=== PATIENT | female | born 1955 | race Caucasian/White ===

== ENCOUNTER 2016-07-21 10:25 | Outpatient (CLI) ==
[2015-11-13 22:31] VITALS: BMI 34.2
[2016-07-21 14:01] LABS: ALBUMIN 3.8 g/dL (3.4-5.0); ALBUMIN/GLOBULIN RATIO 1.09; ANION GAP 15.6; BILIRUBIN,TOTAL 1.05 mg/dL (0.00-1.20); BUN/CREATININE RATIO 16.02; CALCIUM 9.3 mg/dL (8.2-10.2); CREATININE 1.56 mg/dL (0.60-1.30); POTASSIUM 4.6 mmol/L (3.5-5.10); TOTAL PROTEIN 7.3 g/dL (5.8-8.1)
== END 2016-07-21 10:26 | disposition home or self-care (01) ==
LOC: LAB 10:25
PROVIDERS: ATTEND General Practice
DX: E11.9 Type 2 diabetes mellitus without complications (principal); E78.1 Pure hyperglyceridemia; E78.5 Hyperlipidemia, unspecified
CPT/HCPCS: 36415; 80053; 80061; 83036

== ENCOUNTER 2016-08-02 17:47 | Outpatient (CLI) ==
[2015-11-13 22:31] VITALS: BMI 34.2
== END 2016-08-02 17:48 | disposition home or self-care (01) ==
LOC: LAB 17:47
PROVIDERS: ATTEND Nurse Practitioner Family
DX: E03.9 Hypothyroidism, unspecified (principal)
CPT/HCPCS: 36415; 84439; 84443

== ENCOUNTER 2016-09-01 11:49 | Outpatient (CLI) ==
[2015-11-13 22:31] VITALS: BMI 34.2
[2016-09-01 13:20] LABS: ALBUMIN 4.1 g/dL (3.4-5.0); ALBUMIN/GLOBULIN RATIO 1.21; ANION GAP 16.7; BILIRUBIN,TOTAL 1.28 mg/dL (0.00-1.20); BUN/CREATININE RATIO 14.75; CALCIUM 9.4 mg/dL (8.2-10.2); CREATININE 1.83 mg/dL (0.60-1.30); POTASSIUM 4.7 mmol/L (3.5-5.10); TOTAL PROTEIN 7.5 g/dL (5.8-8.1)
== END 2016-09-01 11:50 | disposition home or self-care (01) ==
LOC: LAB 11:49
PROVIDERS: ATTEND Nurse Practitioner Family
DX: N18.3 Chronic kidney disease, stage 3 (moderate) (principal); R94.4 Abnormal results of kidney function studies
CPT/HCPCS: 36415; 80053

== ENCOUNTER 2016-09-30 11:01 | Outpatient (CLI) ==
[2015-11-13 22:31] VITALS: BMI 34.2
[2016-09-30 12:56] LABS: BASOPHILS # (AUTO) 0.1 K/uL (0-0.2); BASOPHILS % (AUTO) 0.7 % (0.0-3.0); EOSINOPHILS # (AUTO) 0.5 K/ul (0.0-0.7); EOSINOPHILS % (AUTO) 5.2 % (0.0-7.0); HEMATOCRIT 40.9 % (37.0-47.0); HEMOGLOBIN 13.9 g/dl (12.0-16.0); IMMATURE GRANULOCYTE % (AUTO) 0.8 % (0.0-5.0); MEAN CORPUSCULAR HEMOGLOBIN 31.1 pg (27.0-31.0); MEAN CORPUSCULAR VOLUME 91.5 fl (81.0-99.0); MONOCYTES # (AUTO) 0.6 K/uL (0.4-2.0); MONOCYTES % (AUTO) 5.9 (0-10); NEUTROPHILS # (AUTO) 5.4 K/ul (2.0-6.9); NEUTROPHILS % (AUTO) 56.4; PLATELET COUNT 293 10^3/uL (140-440); RED BLOOD COUNT 4.47 10^6/ul (4.20-5.40); WHITE BLOOD COUNT 9.53 K/ul (4.6-10.2)
[2016-09-30 13:26] LABS: ALBUMIN 3.9 g/dL (3.4-5.0); ALBUMIN/GLOBULIN RATIO 1.11; ANION GAP 16.1; BILIRUBIN,TOTAL 0.91 mg/dL (0.00-1.20); BUN/CREATININE RATIO 13.37; CALCIUM 9.5 mg/dL (8.2-10.2); CHOL/HDL RATIO 4.1 (4.5-5.5); CREATININE 1.57 mg/dL (0.60-1.30); POTASSIUM 4.1 mmol/L (3.5-5.10); TOTAL PROTEIN 7.4 g/dL (5.8-8.1)
== END 2016-09-30 11:02 | disposition home or self-care (01) ==
LOC: LAB 11:01
PROVIDERS: ATTEND Nurse Practitioner Family
DX: E11.9 Type 2 diabetes mellitus without complications (principal); E03.9 Hypothyroidism, unspecified; I10 Essential (primary) hypertension
CPT/HCPCS: 36415; 80053; 80061; 83036; 84443; 85025

== ENCOUNTER 2016-11-02 11:45 | Outpatient (CLI) ==
[2015-11-13 22:31] VITALS: BMI 34.2
[2016-11-02 13:50] LABS: ALBUMIN 3.8 g/dL (3.4-5.0); ALBUMIN/GLOBULIN RATIO 1.09; ANION GAP 14.5; BILIRUBIN,TOTAL 1.2 mg/dL (0.00-1.20); BUN/CREATININE RATIO 13.54; CALCIUM 9.3 mg/dL (8.2-10.2); CREATININE 1.55 mg/dL (0.60-1.30); POTASSIUM 4.5 mmol/L (3.5-5.10); TOTAL PROTEIN 7.3 g/dL (5.8-8.1)
== END 2016-11-02 11:46 | disposition home or self-care (01) ==
LOC: LAB 11:45
PROVIDERS: ATTEND Nurse Practitioner Family
DX: E03.9 Hypothyroidism, unspecified (principal); I10 Essential (primary) hypertension
CPT/HCPCS: 36415; 80053; 84439; 84443

== ENCOUNTER 2016-12-14 11:36 | Outpatient (CLI) ==
[2015-11-13 22:31] VITALS: BMI 34.2
== END 2016-12-14 11:37 | disposition home or self-care (01) ==
LOC: LAB 11:36
PROVIDERS: ATTEND Nurse Practitioner Family
DX: E03.9 Hypothyroidism, unspecified (principal)
CPT/HCPCS: 36415; 84443

== ENCOUNTER 2017-03-13 12:46 | Outpatient (CLI) ==
[2015-11-13 22:31] VITALS: BMI 34.2
[2017-03-13 13:37] LABS: ALBUMIN 3.4 g/dL (3.4-5.0); ALBUMIN/GLOBULIN RATIO 0.89; ANION GAP 13.4; BILIRUBIN,TOTAL 1.18 mg/dL (0.00-1.20); BUN/CREATININE RATIO 13.46; CALCIUM 9.7 mg/dL (8.2-10.2); CHOL/HDL RATIO 5.3 (4.5-5.5); CREATININE 1.56 mg/dL (0.60-1.30); POTASSIUM 4.4 mmol/L (3.5-5.10); TOTAL PROTEIN 7.2 g/dL (5.8-8.1)
== END 2017-03-13 12:47 | disposition home or self-care (01) ==
LOC: LAB 12:46
PROVIDERS: ATTEND Nurse Practitioner Family
DX: E11.9 Type 2 diabetes mellitus without complications (principal); I10 Essential (primary) hypertension; E78.5 Hyperlipidemia, unspecified; E78.1 Pure hyperglyceridemia; E55.9 Vitamin D deficiency, unspecified
CPT/HCPCS: 36415; 80053; 80061; 82306; 83036

== ENCOUNTER 2017-03-17 13:59 | Outpatient (CLI) ==
[2015-11-13 22:31] VITALS: BMI 34.2
--- NOTE | 2017-03-17 14:36 | DI ---
EXAM: Three views of the right ankle HISTORY: Pain in the right foot. COMPARISON: Right ankle x-ray 09/23/2012 FINDINGS: There is soft tissue swelling most pronounced laterally. There is no cortical irregularity or displaced fracture. The joint spaces maintained. There is no lytic or blastic lesion. There is a calcaneal spur present. IMPRESSION: Soft tissue swelling most pronounced laterally with no underlying fracture or dislocatio n of the right ankle.
--- NOTE | 2017-03-17 14:37 | DI ---
Exam: Three x-rays of the right foot. Comparison: 09/23/2012. Reason for exam: Pain in right foot. FINDINGS: No acute fracture or malalignment. The joint spaces are well maintained. No unexplained calcific soft tissue densities or radiopaque retained foreign bodies. Degenerative disease is seen w ith calcaneal osteophyte formation and diffuse osseous demineralization. Impression: No acute fracture or dislocation in the right foot with mild degenerative disease.
== END 2017-03-17 14:00 | disposition home or self-care (01) ==
LOC: RAD 13:59
PROVIDERS: ATTEND Nurse Practitioner Family
DX: M79.671 Pain in right foot (principal)

== ENCOUNTER 2017-04-04 12:43 | Outpatient (CLI) ==
[2015-11-13 22:31] VITALS: BMI 34.2
--- NOTE | 2017-04-04 14:57 | DEXA ---
EXAM: Bone densitometry. History: Postmenopausal. Findings: Evaluation of the lumbar spine reveals a total bone mineral density of 1.146 grams per centimeter squ ared with T-score of negative 0.3. Evaluation of the left hip reveals a total bone mineral density of 0.956 grams per centimeter squared with T-score of negative 0.4. Evaluation of the right hip reveals a total bone mineral density of 0.938 grams per centimeter square d with T-score of negative 0.5 Impression: Normal bone mineral density of the lumbar spine and bilateral hips
--- NOTE | 2017-04-05 10:15 | MAMMO ---
EXAM: Bilateral digital screening mammogram (2-D and 3-D) History: Screening Comparison: Bilateral mammogram 02/25/2016 Findings: MLO and CC views of bilateral breasts demonstrate predominately fatty replaced breast pare nchyma. CAD was reviewed by the radiologist. Tomosynthesis was performed. Stable benign bilateral breast calcifications. There are no dominant masses, no suspicious calcifications and no architectur al distortions Impression: Benign stable mammogram. Recommend followup routine screening mammography in 1 year. BIRADS 2
== END 2017-04-04 12:44 | disposition home or self-care (01) ==
LOC: RAD 12:43
PROVIDERS: ATTEND Nurse Practitioner Family
DX: Z12.31 Encounter for screening mammogram for malignant neoplasm of breast (principal); M89.9 Disorder of bone, unspecified; Z78.0 Asymptomatic menopausal state
CPT/HCPCS: 77067

== ENCOUNTER 2017-04-18 11:20 | Emergency (ER) ==
[2017-04-18 11:27] VITALS: BP 136/82; TEMP 100.1; BMI 34.0
--- NOTE | 2017-04-18 11:32 | ED.PDOC ---
General ED Provider: Dr. ALDO VALLES JR Chief Complaint: Foot Pain/Injury Stated Complaint: pain both feet 2 days states gout, flare ups at intervals, unable to walk due to pain End]100.1 84 20 97% 136/82 910 Time Seen by Physician: 11:31 Mode of Arrival: Wheelchair Information Source: Patient Exam Limitations: No limitations Primary Care Provider: LIA ZAMBRANO Nursing and Triage Documentation Reviewed and Agree: No Reviewed sepsis parameters & appropriate labs ordered?: No System Inflammatory Response Syndrome: Not Applicable Sepsis Protocol: For patient's 13 years and over: Temp is 96.8 and below OR 101 and greater Pulse >90 BPM Resp >20/minute Acutely Altered Mental Status Are patient's symptoms suggestive of a new infection, such as: -Pneumonia -Skin, Soft Tissue -Endocarditis -UTI -Bone, Joint Infection -Implantable Device -Acute Abdominal Infection -Wound Infection -Meningitis -Blood Stream Catheter Infection -Unknown System Inflammatory Response Syndrome: Not Applicable Review of Systems - Review Of Systems Constitutional: Reports: Weakness Eyes: Reports: No symptoms Ears, Nose, Mouth, Throat: Reports: No symptoms Respiratory: Reports: No symptoms Cardiac: Reports: No symptoms GI: Reports: No symptoms : Reports: No symptoms Musculoskeletal: Reports: Gout, Joint pain, Other Skin: Reports: Change in color Neurological: Reports: No symptoms Endocrine: Reports: Other All Other Systems: Other Past Medical History - Past Medical History Endocrine: Reports: DM 2, Hypothyroid Cardiovascular: Reports: CAD, MS, Hypertension Respiratory: Reports: None Hematological: Reports: None Gastrointestinal: Reports: GERD Genitourinary: Reports: CKD Neuro/Psych: Reports: None, Migraine, Depression Musculoskeletal: Reports: None, Arthritis Cancer: Reports: Other (lymph nodes removed due to CA) Last Menstrual Period: hysterectomy - Surgical History General Surgical History: Reports: Hysterectomy (hysterectomy 1980 ), C- section ( c-sections 1973, 1978), Cholecystectomy (gallbladder 1978), Orthopedic (titanium plate/screws in neck 2002), Back Surgery - Family History Family History: Reports: Unknown - Social History Smoking Status: Current every day smoker, Light tobacco smoker Hx Substance Use: No Alcohol Screening: None Physical Exam - Physical Exam Appearance: Well-appearing Pain Distress: Moderate Neck: Supple Respiratory: Airway patent Musculoskeletal: No calf tenderness (TENDER FEET ANKLES TO ABOVE ANKLES) Skin: Warm, Dry, Normal color Neurological: Sensation intact (states bilateral footnumbness due to diabetes), Motor intact, Reflexes intact, Cranial nerves intact, Alert, Oriented Psychiatric: Affect appropriate, Mood appropriate Critical Care Note - Critical Care Note Total Time (mins): 5 Course - Course Hematology/Chemistry: 04/18/17 11:45 04/18/17 11:45 Orders, Labs, Meds: Lab Review 04/18/17 04/18/17 04/18/17 11:45 11:45 11:45 WBC 17.70 H RBC 4.39 Hgb 13.7 Hct 39.7 MCV 90.4 MCH 31.2 H MCHC 34.5 RDW Coeff of Frandy 13.3 Plt Count 426 Neutrophils % (Manual) 77.0 H Lymphocytes % (Manual) 16.0 Monocytes % (Manual) 2.0 Eosinophils % (Manual) 2.0 Reactive Lymphocytes 3.0 Anisocytosis Not present Sodium 137 Potassium 3.8 Chloride 94 L Carbon Dioxide 30 Anion Gap 16.8 BUN 24 H Creatinine 1.62 H Estimated GFR (MDRD) 32.00 BUN/Creatinine Ratio 14.81 Glucose 199 H Uric Acid 8.3 H Calcium 9.5 Total Bilirubin 2.4 H AST 15 ALT 23 Alkaline Phosphatase 111 Total Protein 7.8 Albumin 3.3 L Globulin 4.5 Albumin/Globulin Ratio 0.73 Orders Category Date Time Status CBC W/ AUTO DIFF Stat LAB 04/18/17 11:45 Completed COMPREHENSIVE METABOLIC PANEL Stat LAB 04/18/17 11:45 Completed MANUAL DIFFERENTIAL Stat LAB 04/18/17 11:45 Completed URIC ACID Stat LAB 04/18/17 11:45 Completed Hydrocodone Bit/Acetaminophen [Perley 5-325] MEDS 04/18/17 11:34 Discontinued 1 tab PO ONCE STA FOOT, LEFT 3 VIEWS Stat RADS 04/18/17 12:47 Completed FOOT, RIGHT 3 VIEWS Stat RADS 04/18/17 12:47 Completed Medications Discontinued Medications Generic Name Dose Route Start Last Admin Trade Name Freq PRN Reason Stop Dose Admin Acetaminophen/Hydrocodone Bitart 1 tab 04/18/17 11:34 04/18/17 12:10 Perley 5-325 PO 04/18/17 11:35 1 tab ONCE STA Administration Vital Signs: Temp Pulse Resp BP Pulse Ox 04/18/17 11:21 100.1 F H 84 20 136/82 97 Departure - Departure Time of Disposition: 13:06 Disposition: HOME SELF-CARE Discharge Problem: Injury of foot Gout attack Qualifiers: Gout site: toe Gout etiology: unspecified cause Laterality: left Qualified Code (s): M10.9 - Gout, unspecified Instructions: Ankle Sprain (ED), Low Purine Diet (ED), Gout (ED), Self-Care Measures with a Chronic Disease (ED), Swollen Joint (ED) Condition: Fair Pt referred to PMD for follow-up: Yes Additional Instructions: Indocin or ibuprofen for pain(do not take together) may use Allergies/Adverse Reactions: Allergies nifedipine [From Procardia] Adverse Reaction (Verified 04/18/17 11:29) Home Medications: Ambulatory Orders Aspirin [Aspirin EC] 81 mg PO DAILY 04/18/17
[2017-04-18] MEDS ORDERED: NORCO 5-325 PO STA (11:34)
[2017-04-18 12:13] LABS: ALBUMIN 3.3 g/dL (3.4-5.0); ALBUMIN/GLOBULIN RATIO 0.73; ANION GAP 16.8; BILIRUBIN,TOTAL 2.4 mg/dL (0.00-1.20); BUN/CREATININE RATIO 14.81; CALCIUM 9.5 mg/dL (8.2-10.2); CREATININE 1.62 mg/dL (0.60-1.30); POTASSIUM 3.8 mmol/L (3.5-5.10); TOTAL PROTEIN 7.8 g/dL (5.8-8.1)
[2017-04-18 12:22] LABS: HEMATOCRIT 39.7 % (37.0-47.0); HEMOGLOBIN 13.7 g/dl (12.0-16.0); MEAN CORPUSCULAR HEMOGLOBIN 31.2 pg (27.0-31.0); MEAN CORPUSCULAR HGB CONC 34.5 (31.8-35.4); MEAN CORPUSCULAR VOLUME 90.4 fl (81.0-99.0); PLATELET COUNT 426 10^3/uL (140-440); RED BLOOD COUNT 4.39 10^6/ul (4.20-5.40)
[2017-04-18 12:23] LABS: ANISOCYTOSIS NOT PRESENT (NOT PRESENT)
--- NOTE | 2017-04-18 13:10 | DI ---
EXAM: Three views of the left foot. History: Left foot pain. Comparison: Left foot radiograph 06/27/2014 Findings: No acute fracture or dislocation. Mild hallux valgus deformity. Small plantar spur. Dif fuse subcutaneous edema. Mild to moderate narrowing of the first MTP joint with small osteophytes no t significantly changed. No adrienne erosive osseous changes. Impression: No acute osseous abnormality. Other findings as detailed above.
--- NOTE | 2017-04-18 13:11 | DI ---
Exam: Three x-rays of the right foot. Comparison: 03/17/2017. Reason for exam: Acute pain left gout. FINDINGS: No acute fracture or malalignment. The joint spaces are relatively well maintained. Degenerative di sease is seen with calcaneal osteophyte formation and diffuse osseous demineralization. Impression: No acute fracture or malalignment in the right foot.
== END 2017-04-18 13:52 | disposition home or self-care (01) ==
LOC: ED 11:20
DX: M10.9 Gout, unspecified (principal); E11.9 Type 2 diabetes mellitus without complications; R20.0 Anesthesia of skin; F17.210 Nicotine dependence, cigarettes, uncomplicated
CPT/HCPCS: 36415; 80053; 84550; 85007; 85025; 99283

== ENCOUNTER 2017-05-10 13:55 | Outpatient (CLI) ==
--- NOTE | 2017-05-10 16:55 | CT ---
EXAM: CT of the abdomen pelvis with enteric contrast History: Diarrhea and nausea, mid abdominal pain. Comparison: None available. Technique: Multiplanar CT images through the abdomen pelvis were obtained following administration o f enteric contrast Findings: There are coronary calcifications and aortic valve calcifications. Lung bases are clear. No acute osseous abnormalities. Atrophic left kidney. No renal stones and no hydronephrosis. Spleen is unremarkable. Status post c holecystectomy. The liver measures 22 cm in length. Atherosclerotic vascular calcifications. No pe ripancreatic inflammation. There is some atrophy of the pancreas. Adrenal glands are unremarkable. The appendix is not seen. Mild quintana colonic wall thickening with adjacent hyperemia. No bowel obstr uction. No free air. No ascites. Bladder is not well distended but the wall is not thickened. Violeta shorty is not seen. Impression: 1. Mild pancolitis. Etiology is most likely infectious or inflammatory. There is no bowel obstruct ion. 2. Atrophic left kidney. 3. Hepatomegaly. 4. Coronary artery disease
== END 2017-05-10 13:56 | disposition home or self-care (01) ==
LOC: RAD 13:55
PROVIDERS: ATTEND Nurse Practitioner Family
DX: R10.9 Unspecified abdominal pain (principal); R10.814 Left lower quadrant abdominal tenderness; R11.0 Nausea; R19.7 Diarrhea, unspecified; R94.4 Abnormal results of kidney function studies
CPT/HCPCS: 36415; 80053; 82150; 83690; 85025; 86677

== ENCOUNTER 2017-06-08 14:07 | Outpatient (CLI) | END 2017-06-08 14:08 | disposition home or self-care (01) | LOC: LAB 14:07 | PROVIDERS: ATTEND Nurse Practitioner Family | DX: E11.9 Type 2 diabetes mellitus without complications (principal); E03.9 Hypothyroidism, unspecified; E78.1 Pure hyperglyceridemia; E78.5 Hyperlipidemia, unspecified; I10 Essential (primary) hypertension; R19.7 Diarrhea, unspecified; R11.0 Nausea; R10.9 Unspecified abdominal pain; R10.814 Left lower quadrant abdominal tenderness | CPT/HCPCS: 36415; 80053; 80061; 83036; 84443 ==

== ENCOUNTER 2017-07-22 07:12 | Emergency (ER) ==
[2017-07-22 07:21] VITALS: BP 169/90; TEMP 97.4; BMI 33.7
--- NOTE | 2017-07-22 07:45 | ED.PDOC ---
General ED Provider: Dr. LUDWIG BERTRAND Chief Complaint: Nausea/Vomiting Stated Complaint: Nausea and Vomiting Time Seen by Physician: 07:35 Mode of Arrival: Walk-In Information Source: Patient, Family Exam Limitations: No limitations Primary Care Provider: TIFFANIE TRENT Referred to ED by: Other () Nursing and Triage Documentation Reviewed and Agree: Yes Reviewed sepsis parameters & appropriate labs ordered?: Yes System Inflammatory Response Syndrome: Not Applicable Sepsis Protocol: For patient's 13 years and over: Temp is 96.8 and below OR 101 and greater Pulse >90 BPM Resp >20/minute Acutely Altered Mental Status Are patient's symptoms suggestive of a new infection, such as: -Pneumonia -Skin, Soft Tissue -Endocarditis -UTI -Bone, Joint Infection -Implantable Device -Acute Abdominal Infection -Wound Infection -Meningitis -Blood Stream Catheter Infection -Unknown System Inflammatory Response Syndrome: Not Applicable GI Complaint Exam - Vomiting/Diarrhea Complaint/Exam Onset/Duration: Lase PM 1.5 hrs after eatting dinner chicken strips/fried potatoes @ home Symptoms Are: Still present Episodes of Vomiting over last 24 Hours: 8 Initial Severity: Severe Current Severity: Mild Character of Vomiting: Reports: Bilious Aggravating: Reports: Movement Alleviating: Reports: Lying still Associated Signs and Symptoms: Reports: Dizziness, Light-headedness Non-GI Risk Factors: Reports: None Surgical Obstruction Risk Factors: Reports: Bilious emesis, Prior abdominal surgery Related Surgical History: Reports: Cholecystectomy Abdominal Findings: Present: None Kussmaul Respirations Present: No Differential Diagnoses: Viral Gastroenteritis Review of Systems - Review Of Systems Constitutional: Reports: No symptoms Eyes: Reports: No symptoms Ears, Nose, Mouth, Throat: Reports: No symptoms Respiratory: Reports: No symptoms Cardiac: Reports: No symptoms GI: Reports: Nausea, Poor fluid intake, Vomiting : Reports: No symptoms Musculoskeletal: Reports: No symptoms Skin: Reports: No symptoms Neurological: Reports: No symptoms Endocrine: Reports: No symptoms Hematologic/Lymphatic: Reports: No symptoms All Other Systems: Reviewed and Negative Past Medical History - Past Medical History Endocrine: Reports: DM 2, Hypothyroid Cardiovascular: Reports: CAD, HI, Hypertension Respiratory: Reports: None Hematological: Reports: None Gastrointestinal: Reports: GERD Genitourinary: Reports: CKD Neuro/Psych: Reports: None, Migraine, Depression Musculoskeletal: Reports: None, Arthritis Cancer: Reports: Other (lymph nodes removed due to CA) Last Menstrual Period: 1980 - Surgical History General Surgical History: Reports: Hysterectomy (hysterectomy 1980 ), C- section ( c-sections 1973, 1978), Cholecystectomy (gallbladder 1978), Orthopedic (titanium plate/screws in neck 2002), Back Surgery - Family History Family History: Reports: Unknown - Social History Smoking Status: Current every day smoker Hx Substance Use: No Alcohol Screening: None - Immunizations Tetanus Shot up to Date: Yes Physical Exam - Physical Exam Appearance: Ill-appearing, No pain distress, Well-nourished, Obese (Appearing older than stated age) Ill-appearing: Moderate Pain Distress: None Eyes: JUNI, EOMI, Conjunctiva clear ENT: Ears normal, Nose normal, Oropharynx normal Respiratory: Airway patent, Breath sounds clear, Breath sounds equal, Respirations nonlabored Cardiovascular: RRR, Pulses normal, No rub, No murmur GI/: Soft, No masses, Bowel sounds normal, No Organomegaly, Tender Musculoskeletal: Normal strength, ROM intact, No edema, No calf tenderness Skin: Warm, Dry, Normal color Neurological: Sensation intact, Motor intact, Reflexes intact, Cranial nerves intact, Alert, Oriented Psychiatric: Affect appropriate, Mood appropriate Interpretation - EKG Interpretation Time of EKG #1: 08:19 Rate: Normal Rhythm: Sinus Ectopy: None ST Segment: Other (Non specific T wave abnormality; Sl prolonged QT) Critical Care Note - Critical Care Note Total Time (mins): 0 Course - Course Hematology/Chemistry: 07/22/17 07:58 07/22/17 07:55 Orders, Labs, Meds: Lab Review 07/22/17 07/22/17 07/22/17 07:55 07:58 08:15 WBC 11.06 H RBC 4.65 Hgb 14.1 Hct 40.8 MCV 87.7 MCH 30.3 MCHC 34.6 RDW Coeff of Frandy 13.2 Plt Count 292 Immature Gran % (Auto) 0.4 Neut % (Auto) 73.0 Lymph % (Auto) 17.4 Coal % (Auto) 3.8 Eos % (Auto) 4.7 Baso % (Auto) 0.7 Immature Gran # (Auto) 0.0 Neut # (Auto) 8.1 H Lymph # (Auto) 1.9 Coal # (Auto) 0.4 Eos # (Auto) 0.5 Baso # (Auto) 0.1 Sodium 140 Potassium 4.5 Chloride 102 Carbon Dioxide 23 Anion Gap 19.5 BUN 19 H Creatinine 1.29 Estimated GFR (MDRD) 42.00 BUN/Creatinine Ratio 14.72 Glucose 193 H Calcium 9.8 Total Bilirubin 1.2 AST 36 ALT 41 Alkaline Phosphatase 119 Total Protein 7.3 Albumin 3.7 Globulin 3.6 Albumin/Globulin Ratio 1.03 Urine Color Urine Clarity Urine pH Ur Specific [place] Urine Protein Urine Glucose (UA) Urine Ketones Urine Blood Urine Nitrite Urine Bilirubin Urine Urobilinogen Ur Leukocyte Esterase Influ A Molecular Assay Negative by naat Influ B Molecular Assay Negative by naat 07/22/17 09:40 WBC RBC Hgb Hct MCV MCH MCHC RDW Coeff of Frandy Plt Count Immature Gran % (Auto) Neut % (Auto) Lymph % (Auto) Coal % (Auto) Eos % (Auto) Baso % (Auto) Immature Gran # (Auto) Neut # (Auto) Lymph # (Auto) Coal # (Auto) Eos # (Auto) Baso # (Auto) Sodium Potassium Chloride Carbon Dioxide Anion Gap BUN Creatinine Estimated GFR (MDRD) BUN/Creatinine Ratio Glucose Calcium Total Bilirubin AST ALT Alkaline Phosphatase Total Protein Albumin Globulin Albumin/Globulin Ratio Urine Color Yellow Urine Clarity Slightly Urine pH 7.0 Ur Specific [place] 1.015 Urine Protein Negative Urine Glucose (UA) Negative Urine Ketones Negative Urine Blood Negative Urine Nitrite Negative Urine Bilirubin Negative Urine Urobilinogen 0.2 Ur Leukocyte Esterase Negative Influ A Molecular Assay Influ B Molecular Assay Orders Category Date Time Status EKG-(ED ONLY) Stat CARDIO 07/22/17 07:48 Completed IV [ED IV/MEDIPORT/POWERPORT] .ONCE EMERGENCY 07/22/17 07:47 Active CBC W/ AUTO DIFF Stat LAB 07/22/17 07:58 Completed CMP [COMPREHENSIVE METABOLIC PANEL] Stat LAB 07/22/17 07:55 Completed FLU A & B MOLECULAR [FLU A/B MOLECULAR] Stat LAB 07/22/17 08:15 Completed UA [URINALYSIS C & S IF INDICATED] Stat LAB 07/22/17 09:40 Completed 0.9 % Sodium Chloride [Saline Flush] MEDS 07/22/17 07:50 Active 1 syr IVF PRN PRN Ondansetron HCl/Pf [Zofran 4 mg/2 ml] MEDS 07/22/17 07:50 Discontinued 4 mg IVP ONCE STA Pantoprazole Sodium [Protonix IV] MEDS 07/22/17 07:52 Discontinued 40 mg IVP ONCE STA Sodium Chloride 0.9% [Sodium Chloride] 1,000 ml MEDS 07/22/17 07:48 Discontinued IV BOLUS Medications Generic Name Dose Route Start Last Admin Trade Name Braydenq PRN Reason Stop Dose Admin Sodium Chloride 1 syr 07/22/17 07:50 07/22/17 08:07 Saline Flush IVF 1 syr PRN PRN Administration To flush IV Discontinued Medications Generic Name Dose Route Start Last Admin Trade Name Freq PRN Reason Stop Dose Admin Sodium Chloride 1,000 mls @ 500 mls/hr 07/22/17 07:48 07/22/17 08:07 Sodium Chloride IV 07/22/17 09:47 500 mls/hr BOLUS STA Administration Ondansetron HCl 4 mg 07/22/17 07:50 07/22/17 08:07 Zofran 4 Mg/2 Ml IVP 07/22/17 07:51 4 mg ONCE STA Administration Pantoprazole Sodium 40 mg 07/22/17 07:52 07/22/17 08:07 Protonix Iv IVP 07/22/17 07:53 40 mg ONCE STA Administration Vital Signs: Temp Pulse Resp BP Pulse Ox 07/22/17 07:13 97.4 F L 90 20 169/90 H 98 Departure - Departure Time of Disposition: 10:50 Disposition: HOME SELF-CARE Discharge Problem: Gastroenteritis, GERD (gastroesophageal reflux disease) Instructions: Dehydration (ED), Gastroesophageal Reflux Disease in Children (ED ) Condition: Good Pt referred to PMD for follow-up: Yes IPMP verified?: No Allergies/Adverse Reactions: Allergies metformin Adverse Reaction (Unverified 07/22/17 07:25) decreased GFR nifedipine [From Procardia] Adverse Reaction (Verified 07/22/17 07:25) Home Medications: Ambulatory Orders Aspirin [Aspirin EC] 81 mg PO DAILYWM 07/22/17 Levothyroxine Sodium 125 mcg PO DAILY 07/22/17 Melatonin/Pyridoxine HCl (B6) [Melatonin 10 mg Tablet] 1 each PO DAILY 07/22/17 Metoprolol Tartrate [Lopressor] 50 mg PO BID 07/22/17 Omeprazole [Prilosec] 20 mg PO BIDAC #60 capsule. 07/22/17 Ondansetron [Zofran Odt] 4 mg PO Q8H PRN #7 tab.rapdis 07/22/17 Pravastatin Sodium [Pravachol] 20 mg PO BEDTIME 07/22/17 Repaglinide 0.5 mg PO BID 07/22/17 Disposition Discussed With: Patient, Family
[2017-07-22] MEDS ORDERED: SODIUM CHLORIDE 1,000 ML IV STA (07:48)
[2017-07-22] MEDS ORDERED: ZOFRAN 4 MG/2 ML IVP STA (07:50)
[2017-07-22] MEDS ORDERED: PROTONIX IV IVP STA (07:52)
== END 2017-07-22 11:05 | disposition home or self-care (01) ==
LOC: ED 07:12
DX: K52.9 Noninfective gastroenteritis and colitis, unspecified (principal); K21.9 Gastro-esophageal reflux disease without esophagitis; E86.0 Dehydration; R42 Dizziness and giddiness; E11.9 Type 2 diabetes mellitus without complications; E03.9 Hypothyroidism, unspecified; I25.2 Old myocardial infarction; I10 Essential (primary) hypertension; I25.10 Atherosclerotic heart disease of native coronary artery without angina pectoris; N18.9 Chronic kidney disease, unspecified; Z79.899 Other long term (current) drug therapy; F17.210 Nicotine dependence, cigarettes, uncomplicated
CPT/HCPCS: 36415; 80053; 81001; 85025; 87502; 93005; 93010; 96361; 96374; 96375; 99283

== ENCOUNTER 2017-08-16 11:18 | Outpatient (CLI) | END 2017-08-16 11:19 | disposition home or self-care (01) | LOC: RHC-LAB 11:18 | PROVIDERS: ATTEND Nurse Practitioner Family | DX: E78.1 Pure hyperglyceridemia (principal); E55.9 Vitamin D deficiency, unspecified | CPT/HCPCS: 36415; 80061; 82306 ==

== ENCOUNTER 2017-08-16 14:04 | Outpatient (CLI) ==
--- NOTE | 2017-08-16 15:35 | CT ---
Exam: CT cervical spine without intravenous contrast. Comparison: None available. Reason for exam: Cervicalgia. FINDINGS: Operative changes are seen after anterior cervical discectomy and fusion spanning C4-C6 wi thout evidence of hardware complication. No acute fracture or listhesis. There is a normal appearin g cervical lordotic curve. The dens is intact. The prevertebral soft tissues are within normal limi ts. Degenerative disease is seen with osteophyte formation. Pressure: 1. No acute fracture or listhesis in the cervical spine. 2. Operative changes after anterior cervical discectomy and fusion spanning C4-C6 without evidence o f hardware complication.
== END 2017-08-16 14:05 | disposition home or self-care (01) ==
LOC: RAD 14:04
PROVIDERS: ATTEND Nurse Practitioner Family
DX: M54.2 Cervicalgia (principal); G89.29 Other chronic pain; Z98.890 Other specified postprocedural states

== ENCOUNTER 2017-08-28 12:33 | Outpatient (CLI) | END 2017-08-28 12:34 | disposition home or self-care (01) | LOC: CAR 12:33 | PROVIDERS: ATTEND Nurse Practitioner Family | DX: R94.31 Abnormal electrocardiogram [ECG] [EKG] (principal); I10 Essential (primary) hypertension | CPT/HCPCS: 93005; 93010 ==

== ENCOUNTER 2017-09-11 06:07 | Day surgery (SDC) ==
[2017-09-11] MEDS: TETRACAINE 0.5% UNIT-DOSE OP PRN ×3 (06:48→07:18)
[2017-09-11] MEDS: CYCLOGYL 2% OPTH OP PRN ×3 (06:48→06:58)
[2017-09-11] MEDS: AK-DILATE 10% OPTH SOL OP PRN ×3 (06:48→06:58)
[2017-09-11] MEDS: OCUFEN 0.03% OPTH SOL OP PRN ×3 (06:48→07:18)
[2017-09-11] MEDS ORDERED: DIAMOX PO STA (06:54)
[2017-09-11] MEDS ORDERED: LIDOCAINE 1% 20 ML MDV ID STA (06:54)
[2017-09-11 07:04] VITALS: TEMP 98.1
[2017-09-11] MEDS ORDERED: BETADINE OPTH PREP OP ONE ×2 (08:15→08:19)
[2017-09-11] MEDS ORDERED: ADRENALIN 1:1000 SDV IR STA (08:17)
[2017-09-11] MEDS ORDERED: VERSED ONE (08:17)
[2017-09-11 14:42] VITALS: BP 147/53
[2017-09-11] MEDS ORDERED: LIDOCAINE HCL 1% SDV INJ STA (15:19)
--- NOTE | 2017-09-12 13:22 | OP ---
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 POSTOPERATIVE DIAGNOSIS: SAME. OPERATION PHACOEMULSIFICATION ASPIRATION OF CATARACT RIGHT EYE. PLACEMENT OF POSTERIOR CHAMBER LENS. PHACO TIME 22.9 SECONDS AT 11% POWER. LENS MODEL JASMEET [id number]. DIOPTER +22.5D. TECHNIQUE: CLEAR CORNEA. ANESTHESIA: TOPICAL ANESTHESIA W/ANESTHESIA MONITORING. OPERATIVE REPORT: Topical anesthesia consisting of Tetracaine was applied to the cornea and Xylocaine Methyl Paraben free of MFP was injected intracamerally into the anterior chamber. The patient was then brought into the operating room , prepped and draped in the usual ophthalmic manner. A lid speculum was placed and the operating microscope was used. A paracentesis was made at the 3 o' clock position. A clear corneal incision was made just out to the limbus. The anterior chamber was entered just inside the clear cornea. Viscoelastic was injected into the anterior chamber. A capsulotomy was performed with a bent # 27 gauge needle. Phacoemulsification was then performed in the posterior chamber. After completion of the phacoemulsification, residual cortical material was aspirated with the irrigation-aspiration system. The posterior capsule was polished. Viscoelastic was injected into the anterior and posterior chambers to inflate the capsular bag. Lens were placed via an Unfolder system and stabilized in the bag. Viscoelastic was removed from the anterior chamber. The wound was checked for any leakage. The four sponges were removed from the fornix. Topical antibiotic steroid and nonsteroidal drops were also applied to the cornea. A Plascencia shield was applied. The patient left the operating room in good condition without any complications. INTRAOPERATIVE MEDICATIONS: Xylocaine Methyl Paraben Free MPF MTDD
== END 2017-09-11 09:11 | disposition home or self-care (01) ==
LOC: SURG 06:07
PROVIDERS: ATTEND Ophthalmology
DX: H25.041 Posterior subcapsular polar age-related cataract, right eye (principal)

== ENCOUNTER 2017-10-04 10:57 | Outpatient (CLI) | END 2017-10-04 10:58 | disposition home or self-care (01) | LOC: RHC-LAB 10:57 | PROVIDERS: ATTEND Nurse Practitioner Family | DX: E11.9 Type 2 diabetes mellitus without complications (principal); E78.5 Hyperlipidemia, unspecified; E55.9 Vitamin D deficiency, unspecified | CPT/HCPCS: 36415; 80053; 80061; 82306; 83036 ==

== ENCOUNTER 2017-10-09 07:01 | Day surgery (SDC) ==
[2017-10-09] MEDS: OCUFEN 0.03% OPTH SOL OP PRN ×2 (07:20→07:35)
[2017-10-09] MEDS: CYCLOGYL 2% OPTH OP PRN ×3 (07:20→07:30)
[2017-10-09] MEDS: TETRACAINE 0.5% UNIT-DOSE OP PRN ×3 (07:20→08:37)
[2017-10-09] MEDS ORDERED: DIAMOX PO STA ×2 (07:20→15:47)
[2017-10-09] MEDS ORDERED: LIDOCAINE 1% 20 ML MDV ID STA (07:20)
[2017-10-09] MEDS: AK-DILATE 10% OPTH SOL OP PRN ×3 (07:20→07:30)
[2017-10-09] MEDS ORDERED: BETADINE OPTH PREP OP ONE (08:37)
[2017-10-09] MEDS ORDERED: VERSED ONE (08:40)
[2017-10-09] MEDS ORDERED: SUBLIMAZE ONE (08:40)
[2017-10-09] MEDS ORDERED: BSS WITH EPINEPHRINE OP ONE (08:50)
[2017-10-09] MEDS ORDERED: LIDOCAINE HCL 1% SDV INJ PRN (08:50)
[2017-10-09] MEDS ORDERED: ADRENALIN 1:1000 SDV IR STA (08:50)
[2017-10-09] MEDS ORDERED: DIAMOX ONE (09:05)
[2017-10-09] MEDS ORDERED: DIAMOX PO ONE (09:15)
--- NOTE | 2017-10-10 18:08 | OP ---
PREOPERATIVE DIAGNOSIS: ADVANCED NUCLEAR SCLEROTIC/CORTICAL CATARACT RIGHT EYE. POSTOPERATIVE DIAGNOSIS: SAME. OPERATION PHACOEMULSIFICATION ASPIRATION OF CATARACT RIGHT EYE. PLACEMENT OF POSTERIOR CHAMBER LENS. PHACO TIME 26.1 SECONDS AT 3.0% POWER. LENS MODEL TECNIS [id number]. DIOPTER +22.0D. TECHNIQUE: CLEAR CORNEA. ANESTHESIA: TOPICAL ANESTHESIA W/ANESTHESIA MONITORING. OPERATIVE REPORT: Topical anesthesia consisting of Tetracaine was applied to the cornea and Xylocaine Methyl Paraben free of MFP was injected intracamerally into the anterior chamber. The patient was then brought into the operating room , prepped and draped in the usual ophthalmic manner. A lid speculum was placed and the operating microscope was used. A paracentesis was made at the 3 o' clock position. A clear corneal incision was made just out to the limbus. The anterior chamber was entered just inside the clear cornea. Viscoelastic was injected into the anterior chamber. A capsulotomy was performed with a bent # 27 gauge needle. Phacoemulsification was then performed in the posterior chamber. After completion of the phacoemulsification, residual cortical material was aspirated with the irrigation-aspiration system. The posterior capsule was polished. Viscoelastic was injected into the anterior and posterior chambers to inflate the capsular bag. Lens were placed via an Unfolder system and stabilized in the bag. Viscoelastic was removed from the anterior chamber. The wound was checked for any leakage. The four sponges were removed from the fornix. Topical antibiotic steroid and nonsteroidal drops were also applied to the cornea. A Plascencia shield was applied. The patient left the operating room in good condition without any complications. INTRAOPERATIVE MEDICATIONS: Xylocaine Methyl Paraben Free MPF MTDD
[2017-10-11 14:53] VITALS: TEMP 98.6
[2017-10-11 14:54] VITALS: BP 126/67
== END 2017-10-09 09:30 | disposition home or self-care (01) ==
LOC: SURG 07:01
PROVIDERS: ATTEND Ophthalmology
DX: H25.11 Age-related nuclear cataract, right eye (principal)

== ENCOUNTER 2018-01-26 13:41 | Emergency (ER) ==
[2018-01-26] MEDS ORDERED: SOLU-MEDROL 125 MG IVP STA (13:43)
[2018-01-26] MEDS ORDERED: DUONEB NEB STA (13:43)
[2018-01-26 13:47] VITALS: BP 166/64; TEMP 98.7; BMI 33.5
[2018-01-26] MEDS ORDERED: ASPIRIN CHEWABLE PO STA (13:48)
--- NOTE | 2018-01-26 14:30 | DI ---
EXAM: CHEST FRONTAL VIEW HISTORY: Chest pain. COMPARISON: 12/31/2017 FINDINGS: Heart size remains within normal limits. Mild to moderate atherosclerotic disease. No acu te infiltrates are seen. No vascular congestion. There is no consolidation, visible pleural fluid o r pneumothorax. Bones reveal no acute fracture. Stabilization hardware cervical spine. IMPRESSION: Atherosclerosis. No acute cardiopulmonary process.
--- NOTE | 2018-01-26 15:06 | ED.PDOC ---
General ED Provider: Dr. DIONISIO ARREGUIN Chief Complaint: Shortness of Air Stated Complaint: weakness, chest ache, short of air Time Seen by Physician: 13:47 (pt was D/C FROM [facility] LAST MONDAY WAS TOLD SHE HAS 2 OCCLUDED STENTS) Mode of Arrival: Walk-In Information Source: Patient Exam Limitations: No limitations Primary Care Provider: LIA ZAMBRANO Nursing and Triage Documentation Reviewed and Agree: Yes Does patient meet sepsis criteria?: No System Inflammatory Response Syndrome: Not Applicable Sepsis Protocol: For patient's 13 years and over: Temp is 96.8 and below OR 101 and greater Pulse >90 BPM Resp >20/minute Acutely Altered Mental Status Are patient's symptoms suggestive of a new infection, such as: -Pneumonia -Skin, Soft Tissue -Endocarditis -UTI -Bone, Joint Infection -Implantable Device -Acute Abdominal Infection -Wound Infection -Meningitis -Blood Stream Catheter Infection -Unknown Miscellaneous Complaint Exam - Complex/Multi-System Complaint/Exam Onset/Duration: 2 WEEKS Symptoms Are: Still present Episodes Lasting: Days Initial Severity: Mild Current Severity: Mild Location of Pain: CHEST BUT PAIN HAS BEEN D/C Pain Radiates to: NO Character: NO Aggravating: NO Alleviating: NO Associated Signs and Symptoms: Reports: Short of air, Cough Related History: Recent Illness (STENT BLOCKAGE ISSUE ) Recent Echo/LV Function: No Respiratory Distress: None JVD Present: No Tachypnea Present: No Stridor Present: No Abdominal Findings: Present: Normal findings Glascow Coma Scale (see protocol): 15 Meningeal Signs Positive: No Focal Weakness: Present: None Focal Sensory Loss: Present: None Gait: Unable Gag Reflex Present: Yes Joint Swelling Present: No In-Dwelling Device Present: No Differential Diagnosis: Cardiac Ischemia, Metabolic Abnormality Quality Indicators for Cardiac Chest Pain: EKG in 10min. Quality Indicators for AMI: EKG in 10min. Quality Indicators For Pneumonia/CAP: SpO2 assessed, Vital signs, Mental status assessed Quality Indicator For Non-Traumatic Chest Pain/Syncope: EKG Performed Review of Systems - Review Of Systems Constitutional: Reports: Malaise, Weakness, Loss of appetite Eyes: Reports: No symptoms Ears, Nose, Mouth, Throat: Reports: No symptoms Respiratory: Reports: Cough, Short of air Cardiac: Reports: Chest pain GI: Reports: No symptoms : Reports: No symptoms Musculoskeletal: Reports: No symptoms Skin: Reports: No symptoms Neurological: Reports: No symptoms Endocrine: Reports: No symptoms Hematologic/Lymphatic: Reports: No symptoms All Other Systems: Reviewed and Negative Past Medical History - Past Medical History Previously Healthy: No Endocrine: Reports: DM 2, Hypothyroid Cardiovascular: Reports: CAD, [place], Hypertension Respiratory: Reports: None Hematological: Reports: None Gastrointestinal: Reports: GERD Genitourinary: Reports: CKD Neuro/Psych: Reports: None, Migraine, Depression Musculoskeletal: Reports: None, Arthritis Cancer: Reports: Other (lymph nodes removed due to CA) Last Menstrual Period: NA - Surgical History General Surgical History: Reports: Hysterectomy (hysterectomy 1980 ), C- section ( c-sections 1973, 1978), Cholecystectomy (gallbladder 1978), Orthopedic (titanium plate/screws in neck 2002), Back Surgery - Family History Family History: Reports: Unknown - Social History Smoking Status: Former smoker Hx Substance Use: No Alcohol Screening: None Physical Exam - Physical Exam Appearance: Ill-appearing Ill-appearing: Mild Eyes: JUNI, EOMI, Conjunctiva clear ENT: Ears normal, Nose normal, Oropharynx normal Respiratory: Airway patent, Breath sounds clear, Breath sounds equal, Respirations nonlabored Cardiovascular: RRR, Pulses normal, No rub, No murmur GI/: Soft, Nontender, No masses, Bowel sounds normal, No Organomegaly Musculoskeletal: Normal strength, ROM intact, No edema, No calf tenderness Skin: Warm, Dry, Normal color Neurological: Sensation intact, Motor intact, Reflexes intact, Cranial nerves intact, Alert, Oriented Psychiatric: Affect appropriate, Mood appropriate 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 Rate: Normal Rhythm: Sinus Ectopy: None - EKG Interpretation Time of EKG #1: 13:58 Rate: Normal Rhythm: Sinus Ectopy: None [place]: NL ST Segment: Normal Time of EKG #2: 15:00 Rate: Normal Rhythm: Sinus Ectopy: None W[place]: NL ST Segment: Normal EKG Comparison: No significant changes Re-Evaluation - Re-Evaluation Time of Re-Evaluation: 02:30 Status: Improved Vital Signs Stable: Yes Pain Level: 0 Appearance: NAD Lungs: Clear Skin: Warm and Dry Neuro: Alert and Oriented X3 CV: RRR - Re-Evaluation Time of Re-Evaluation: 15:09 Status: Improved Vital Signs Stable: Yes Pain Level: 0 Appearance: NAD Skin: Warm and Dry Neuro: Alert and Oriented X3 CV: RRR Critical Care Note - Critical Care Note Total Time (mins): 0 Course - Course Hematology/Chemistry: 01/26/18 13:50 01/26/18 13:50 Orders, Labs, Meds: Lab Review 01/26/18 01/26/18 13:50 13:50 WBC 12.62 H RBC 4.13 L Hgb 12.8 Hct 36.7 L MCV 88.9 MCH 31.0 MCHC 34.9 RDW Coeff of Frandy 12.9 Plt Count 397 Immature Gran % (Auto) 0.7 Neut % (Auto) 71.4 Lymph % (Auto) 17.0 Hall % (Auto) 6.9 Eos % (Auto) 3.4 Baso % (Auto) 0.6 Immature Gran # (Auto) 0.1 Neut # (Auto) 9.0 H Lymph # (Auto) 2.1 Hall # (Auto) 0.9 Eos # (Auto) 0.4 Baso # (Auto) 0.1 Sodium 136.7 L Potassium 4.07 Chloride 100.2 Carbon Dioxide 26.6 Anion Gap 13.97 BUN 24.0 H Creatinine 1.65 H Estimated GFR (MDRD) 32.00 BUN/Creatinine Ratio 14.54 Glucose 208.3 H Calcium 9.83 Total Bilirubin 1.73 H AST 36.9 H ALT 32.8 Alkaline Phosphatase 143.0 H Total Creatine Kinase 36.8 Troponin I < 0.012 Total Protein 8.25 H Albumin 4.62 Globulin 3.63 Albumin/Globulin Ratio 1.27 Orders Category Date Time Status ABG DRAW REQUEST Stat CARDIO 01/26/18 15:00 Ordered EKG-(ED ONLY) Stat CARDIO 01/26/18 13:55 Completed EKG-(ED ONLY) Stat CARDIO 01/26/18 14:57 Ordered ED IV/MEDIPORT/POWERPORT .ONCE EMERGENCY 01/26/18 13:43 Active ABG Stat LAB 01/26/18 15:00 Ordered CBC W/ AUTO DIFF Stat LAB 01/26/18 13:50 Completed COMPREHENSIVE METABOLIC PANEL Stat LAB 01/26/18 13:50 Completed CREATINE KINASE Stat LAB 01/26/18 13:50 Completed D-DIMER Stat LAB 01/26/18 13:50 Received TROPONIN I Stat LAB 01/26/18 13:50 Completed 0.9 % Sodium Chloride [Saline Flush] MEDS 01/26/18 13:43 Active 1 syr IVF PRN PRN Aspirin [Aspirin Chewable] MEDS 01/26/18 13:48 Discontinued 243 mg PO ONCE STA Ipratropium/Albuterol Neb [Duoneb] MEDS 01/26/18 13:43 Stop Req 1 vial NEB ONCE STA Methylprednisolone Sod Succ/Pf [Solu-Medrol 125 mg] MEDS 01/26/18 13:43 Stop Req 125 mg IVP ONCE STA CHEST, 1V AP ONLY Stat RADS 01/26/18 13:46 Completed Medications Generic Name Dose Route Start Last Admin Trade Name Freq PRN Reason Stop Dose Admin Sodium Chloride 1 syr 01/26/18 13:43 Saline Flush IVF PRN PRN To flush IV Discontinued Medications Generic Name Dose Route Start Last Admin Trade Name Freq PRN Reason Stop Dose Admin Albuterol/Ipratropium 1 vial 01/26/18 13:43 01/26/18 14:52 Duoneb NEB 01/26/18 13:44 Not Given ONCE STA Aspirin 243 mg 01/26/18 13:48 01/26/18 13:59 Aspirin Chewable PO 01/26/18 13:49 243 mg ONCE STA Administration Methylprednisolone Sodium Succinate 125 mg 01/26/18 13:43 01/26/18 14:00 Solu-Medrol 125 Mg IVP 01/26/18 13:44 Not Given ONCE STA Vital Signs: Temp Pulse Resp BP Pulse Ox 01/26/18 13:44 98.7 F 66 18 166/64 H 99 Departure - Departure Time of Disposition: 16:00 Disposition: TSF SHORT-TRM HOSP Discharge Problem: Chest pain Qualifiers: Chest pain type: unspecified Qualified Code(s): R07.9 - Chest pain, unspecified Instructions: Angina (ED) Condition: Good Pt referred to PMD for follow-up: Yes IPMP verified?: No Additional Instructions: Please call your Family Physician as soon as possible to schedule a follow-up appointment. 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
== END 2018-01-26 16:52 | disposition short-term general hospital (02) ==
LOC: ED 13:41
DX: R06.02 Shortness of breath (principal); R53.1 Weakness; R07.9 Chest pain, unspecified; R53.81 Other malaise; R63.0 Anorexia
CPT/HCPCS: 36415; 80053; 82550; 84484; 85025; 85379; 93005; 93010; 94640; 99285

== ENCOUNTER 2018-05-01 18:51 | Emergency (ER) ==
[2018-05-01 18:56] VITALS: TEMP 101; BMI 34.0
--- NOTE | 2018-05-01 19:28 | CT ---
EXAM: CT of the chest without contrast History: Fever and cough. Comparison: Chest radiograph 01/26/2018 Technique: Multiplanar CT images through the thorax were obtained without the administration of IV c ontrast Findings: Heart size is upper limits of normal. Coronary calcifications. No thoracic aortic aneury sm. No pericardial effusion. No pathologically enlarged thoracic lymph nodes. No consolidation. N o pleural fluid and no pneumothorax. Scattered areas of subsegmental atelectasis. No suspicious law g masses or lung nodules. Within the visualized upper abdomen, no acute findings. There is atrophy of the left kidney. No acu te osseous abnormalities. Postsurgical changes of the cervical spine. Impression: 1. No acute intrathoracic process. 2. Coronary artery disease. 3. Atrophic left kidney
[2018-05-01] MEDS ORDERED: DECADRON 4 MG/ML SDV IM STA (19:50)
[2018-05-01] MEDS ORDERED: COLCRYS PO STA (19:50)
--- NOTE | 2018-05-01 20:20 | ED.PDOC ---
General ED Provider: Dr. LUDWIG CURIEL-ER Chief Complaint: Cough Stated Complaint: my sinuses are draining and im coughing and i have a gout flare Time Seen by Physician: 18:55 Mode of Arrival: Walk-In Information Source: Patient Exam Limitations: No limitations Primary Care Provider: LIA ZAMBRANO Nursing and Triage Documentation Reviewed and Agree: Yes Does patient meet sepsis criteria?: No System Inflammatory Response Syndrome: Not Applicable Sepsis Protocol: For patient's 13 years and over: Temp is 96.8 and below OR 101 and greater Pulse >90 BPM Resp >20/minute Acutely Altered Mental Status Are patient's symptoms suggestive of a new infection, such as: -Pneumonia -Skin, Soft Tissue -Endocarditis -UTI -Bone, Joint Infection -Implantable Device -Acute Abdominal Infection -Wound Infection -Meningitis -Blood Stream Catheter Infection -Unknown Respiratory Complaint Exam - Respiratory Complaint/Exam Onset/Duration: 2 days Symptoms Are: Still present Timing: Constant Initial Severity: Mild Current Severity: Mild Location: Nose, Chest Character: Reports: Productive cough Aggravating: Reports: URI Associated Signs and Symptoms: Reports: Fever, URI, Nasal congestion, Sore throat. Denies: Rapid breathing, Dyspnea, Chest pain, Pleuritic chest pain, Wheezing, Hemoptysis, Dizziness, Calf pain, Calf swelling, Edema Home Oxygen Use: No Recent Stress Test: No Recent Echo/LV Function: No Current Antibiotic Use: No Current Asthma Medication Use: No Respiratory Distress: None Inadequate Respiratory Effort: No Dysphagia Present: No Stridor Present: No JVD Present: No Accessory Muscle Use: No Retractions: Not Present Prolonged Respiration: Inspiratory phase Grunting Respirations: No Kussmaul Respirations: No Differential Diagnoses: Pneumonia, Bronchitis, URI, Influenza Review of Systems - Review Of Systems Constitutional: Reports: Chills, Fever Eyes: Reports: No symptoms Ears, Nose, Mouth, Throat: Reports: Nose discharge, Throat pain Respiratory: Reports: Cough Cardiac: Reports: No symptoms GI: Reports: No symptoms : Reports: No symptoms Musculoskeletal: Reports: No symptoms Skin: Reports: No symptoms Neurological: Reports: No symptoms Endocrine: Reports: No symptoms Hematologic/Lymphatic: Reports: No symptoms All Other Systems: Reviewed and Negative Past Medical History - Past Medical History Previously Healthy: No Endocrine: Reports: DM 2, Hypothyroid Cardiovascular: Reports: CAD, [place], Hypertension Respiratory: Reports: None Hematological: Reports: None Gastrointestinal: Reports: GERD Genitourinary: Reports: CKD Neuro/Psych: Reports: None, Migraine, Depression Musculoskeletal: Reports: None, Arthritis Cancer: Reports: Other (lymph nodes removed due to CA) Last Menstrual Period: none - Surgical History General Surgical History: Reports: Hysterectomy (hysterectomy 1980 ), C- section ( c-sections 1973, 1978), Cholecystectomy (gallbladder 1978), Orthopedic (titanium plate/screws in neck 2002), Back Surgery - Family History Family History: Reports: Unknown - Social History Smoking Status: Former smoker Hx Substance Use: No Alcohol Screening: None Physical Exam - Physical Exam Appearance: Well-appearing, No pain distress, Well-nourished Eyes: JUNI, EOMI, Conjunctiva clear ENT: Rhinorrhea Neck: Supple Respiratory: Rhonchi Cardiovascular: RRR GI/: Soft, Nontender, No masses, Bowel sounds normal, No Organomegaly Musculoskeletal: Normal strength, ROM intact, No edema, No calf tenderness Skin: Warm, Dry, Normal color Neurological: Sensation intact, Motor intact, Reflexes intact, Cranial nerves intact, Alert, Oriented Psychiatric: Affect appropriate, Mood appropriate Interpretation - Radiology Interpretation Radiology Interpretation By: Radiologist Radiology Results: Negative Exam Interpreted: CT Scan - EKG Interpretation Time of EKG #1: 20:20 Rate: Normal Rhythm: Sinus Ectopy: None [place]: NL ST Segment: Normal Critical Care Note - Critical Care Note Total Time (mins): 0 Course - Course Hematology/Chemistry: 05/01/18 19:15 05/01/18 19:15 Orders, Labs, Meds: Lab Review 05/01/18 05/01/18 05/01/18 19:02 19:15 19:15 WBC 16.96 H RBC 4.10 L Hgb 12.1 Hct 36.7 L MCV 89.5 MCH 29.5 MCHC 33.0 RDW Coeff of Frandy 13.3 Plt Count 332 Immature Gran % (Auto) 0.3 Neut % (Auto) 79.4 Lymph % (Auto) 11.8 Sumner % (Auto) 7.3 Eos % (Auto) 1.0 Baso % (Auto) 0.2 Immature Gran # (Auto) 0.1 Neut # (Auto) 13.5 H Lymph # (Auto) 2.0 Sumner # (Auto) 1.2 Eos # (Auto) 0.2 Baso # (Auto) 0.0 Puncture Site Lbrach O2 Saturation 96.0 ABG pH 7.489 H ABG pCO2 32.4 L ABG pO2 73.0 L ABG HCO3 24.6 ABG Total CO2 26 ABG Base Excess 1 Wilber Test + FiO2 % 21.0 Sodium 135.3 Potassium 3.93 Chloride 95.9 L Carbon Dioxide 31.3 H Anion Gap 12.03 BUN 22.3 H Creatinine 1.57 H Estimated GFR (MDRD) 33.00 BUN/Creatinine Ratio 14.20 Glucose 140.1 H Lactic Acid Uric Acid 8.63 H Calcium 9.52 Total Bilirubin 1.75 H AST 37.6 H ALT 24.0 Alkaline Phosphatase 142.8 H Total Protein 8.07 Albumin 4.49 Globulin 3.58 Albumin/Globulin Ratio 1.25 Procalcitonin Influ A Molecular Assay Influ B Molecular Assay 05/01/18 05/01/18 05/01/18 19:15 19:15 19:37 WBC RBC Hgb Hct MCV MCH MCHC RDW Coeff of Frandy Plt Count Immature Gran % (Auto) Neut % (Auto) Lymph % (Auto) Sumner % (Auto) Eos % (Auto) Baso % (Auto) Immature Gran # (Auto) Neut # (Auto) Lymph # (Auto) Sumner # (Auto) Eos # (Auto) Baso # (Auto) Puncture Site O2 Saturation ABG pH ABG pCO2 ABG pO2 ABG HCO3 ABG Total CO2 ABG Base Excess Wilber Test FiO2 % Sodium Potassium Chloride Carbon Dioxide Anion Gap BUN Creatinine Estimated GFR (MDRD) BUN/Creatinine Ratio Glucose Lactic Acid 2.03 Uric Acid Calcium Total Bilirubin AST ALT Alkaline Phosphatase Total Protein Albumin Globulin Albumin/Globulin Ratio Procalcitonin 0.11 Influ A Molecular Assay Negative by naat Influ B Molecular Assay Negative by naat Orders Category Date Time Status ABG DRAW REQUEST Stat CARDIO 05/01/18 19:02 Completed EKG-(ED ONLY) Stat CARDIO 05/01/18 19:02 Completed ABG Stat LAB 05/01/18 19:02 Completed BLOOD CULTURE (ED ONLY) Stat LAB 05/01/18 19:15 Received CBC W/ AUTO DIFF Stat LAB 05/01/18 19:15 Completed COMPREHENSIVE METABOLIC PANEL Stat LAB 05/01/18 19:15 Completed FLU A/B MOLECULAR Stat LAB 05/01/18 19:37 Completed LACTIC ACID Stat LAB 05/01/18 19:15 Completed MOLECULAR GROUP A STREP Stat LAB 05/01/18 19:37 Completed PROCALCITONIN Stat LAB 05/01/18 19:15 Completed URIC ACID Stat LAB 05/01/18 19:15 Completed Colchicine [Colcrys] MEDS 05/01/18 19:50 Discontinued 1.2 mg PO ONCE STA Dexamethasone 4 mg/ml Inj [Decadron 4 mg/ml Sdv] MEDS 05/01/18 19:50 Discontinued 4 mg IM ONCE STA CT CHEST W/O CONTRAST Stat RADS 05/01/18 19:03 Completed Medications Discontinued Medications Generic Name Dose Route Start Last Admin Trade Name Freq PRN Reason Stop Dose Admin Colchicine 1.2 mg 05/01/18 19:50 05/01/18 20:03 Colcrys PO 05/01/18 19:51 1.2 mg ONCE STA Administration Dexamethasone Sodium Phosphate 4 mg 05/01/18 19:50 05/01/18 20:03 Decadron 4 Mg/Ml Sdv IM 05/01/18 19:51 4 mg ONCE STA Administration Vital Signs: Temp Pulse Resp BP Pulse Ox 05/01/18 19:30 145/69 H 05/01/18 19:09 99 H 15 153/72 H 96 05/01/18 19:00 97 H 160/76 H 05/01/18 18:51 101 F H 109 H 20 159/82 H 96 Departure - Departure Time of Disposition: 20:20 Disposition: HOME SELF-CARE Discharge Problem: Sinusitis Qualifiers: Sinusitis location: other Chronicity: acute Recurrence: non-recurrent Qualified Code(s): J01.80 - Other acute sinusitis Gout Qualifiers: Gout site: foot Gout etiology: due to renal impairment Chronicity: acute Laterality: left Qualified Code(s): M10.372 - Gout due to renal impairment, left ankle and foot Instructions: Rhinosinusitis (ED) Condition: Good Pt referred to PMD for follow-up: Yes IPMP verified?: No Additional Instructions: augmentin 875mg bid x 10 days---colchicine 0.6 q daily #10---drink more water--- f/u with pcp about prevention of gout (allopurinol)--tessalon perles 200mg tid prn cough 30--- Allergies/Adverse Reactions: Allergies metformin Adverse Reaction (Verified 05/01/18 18:56) 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
[2018-05-01 20:21] VITALS: BP 146/67
== END 2018-05-01 20:30 | disposition home or self-care (01) ==
LOC: ED 18:51
DX: R05 Cough (principal); R50.9 Fever, unspecified; J06.9 Acute upper respiratory infection, unspecified; R09.81 Nasal congestion; J02.9 Acute pharyngitis, unspecified; J01.80 Other acute sinusitis; M10.372 Gout due to renal impairment, left ankle and foot
CPT/HCPCS: 36415; 80053; 82803; 83605; 84145; 84550; 85025; 87040; 87502; 87651; 93005; 93010; 96372; 99284

== ENCOUNTER 2018-10-17 09:20 | Outpatient (CLI) | END 2018-10-17 09:21 | disposition home or self-care (01) | LOC: LAB 09:20 | PROVIDERS: ATTEND Nurse Practitioner Family | DX: E11.9 Type 2 diabetes mellitus without complications (principal); I10 Essential (primary) hypertension; E03.9 Hypothyroidism, unspecified; E78.5 Hyperlipidemia, unspecified | CPT/HCPCS: 36415; 80053; 80061; 83036; 84443; 85025 ==

== ENCOUNTER 2019-06-01 10:56 | Inpatient (IN) ==
[2019-06-01 11:02] VITALS: BMI 36.2
[2019-06-01] MEDS ORDERED: SODIUM CHLORIDE 1,000 ML IV STA (11:38)
[2019-06-01] MEDS ORDERED: ZOFRAN 4 MG/2 ML IVP STA (11:38)
--- NOTE | 2019-06-01 11:45 | ED.PDOC ---
General ED Provider: Dr. ROBIN LAKE Chief Complaint: Kidney Stone Stated Complaint: Woke up at 5 AM with Right back /flank pain; chills, sweats, nausea, vomiting. Has had no problems since ER visit 8 days ago for similar complaint. Was discharged then with R kidney stone; has not had a follow up. Time Seen by Physician: 11:30 Mode of Arrival: Walk-In Information Source: Patient Exam Limitations: No limitations Primary Care Provider: LIA ZAMBRANO APRN Nursing and Triage Documentation Reviewed and Agree: Yes Does patient meet sepsis criteria?: No System Inflammatory Response Syndrome: Not Applicable Sepsis Protocol: For patient's 13 years and over: Temp is 96.8 and below OR 101 and greater Pulse >90 BPM Resp >20/minute Acutely Altered Mental Status Are patient's symptoms suggestive of a new infection, such as: -Pneumonia -Skin, Soft Tissue -Endocarditis -UTI -Bone, Joint Infection -Implantable Device -Acute Abdominal Infection -Wound Infection -Meningitis -Blood Stream Catheter Infection -Unknown Review of Systems Review Of Systems Constitutional: Reports Malaise and Weakness Eyes: Reports No symptoms Ears, Nose, Mouth, Throat: Reports No symptoms Respiratory: Reports No symptoms Cardiac: Reports No symptoms GI: Reports Abdominal pain (R Flank), Nausea and Vomiting (Started 5:00 AM) : Denies Burning and Dysuria All Other Systems: Reviewed and Negative [facility] Medical History (Updated 06/01/19 @ 17:25 by [employer]) Arthritis Cataract Chest pain Chronic arthritis Chronic kidney disease Depression Diabetes mellitus Gout Heartburn Hyperlipidemia Hypertension Hyperthyroidism Myocardial infarction (~2008) Non-Hodgkin lymphoma (Acute) Non-insulin dependent type 2 diabetes mellitus Urinary incontinence Family History Mother Cardiac disease Father Cardiac disease Social History (Updated 06/01/19 @ 17:27 by [employer]) Smoking and tobacco status: Former smoker Tobacco: How many years used: 25 How long ago did patient quit smoking: one and one half years Alcohol intake: never Substance use type: does not use Household members: spouse Female Reproductive History Menstrual Hx Hysterectomy: Yes Hx Tubal Ligation: No Physical Exam Physical Exam Appearance: Reports Ill-appearing Ill-appearing: Mild Pain Distress: Moderate (apparent discomfort with impending emesis) Eyes: Reports JUNI and EOMI ENT: Reports Nose normal and Oropharynx normal Neck: Supple Respiratory: Reports Airway patent, Breath sounds clear and Breath sounds equal Cardiovascular: Reports RRR and Pulses normal GI/: Reports Soft and Nontender Musculoskeletal: Reports Normal strength, ROM intact, No edema and No calf tenderness Skin: Reports Warm, Dry and Normal color Neurological: Reports Sensation intact and Motor intact Psychiatric: Reports Affect appropriate and Mood appropriate Interpretation Radiology Interpretation Radiology Interpretation By: Radiologist Exam Interpreted: CT Scan (Abdomen/Pelvis without contrast seconday to renal function limitations) Xray Comments: Hydronephrosis secondary to obstructing 2.5 X 3 mm stone R renal pelvis Re-Evaluation Re-Evaluation Time of Re-Evaluation: 15:40 Status: Unchanged Appearance: NAD Lungs: Clear Skin: Warm and Dry Neuro: Alert and Oriented X3 Additional Comments: Discussed at length with patient and re lab, CT and clinical picture/hx; agree with admission Physician Notification Case Discussed Physician Notified: Hospitalist Time of Notification: 15:35 Critical Care Note Critical Care Note Total Time (mins): 35 Comments: Refiew of prior recent HX, DX, labs, CT and plan; review of current clinical picture and current labs, CT results, (2 CTs in 8 days increasingly suggestive of pyelonephritis) discussion with patient and and with hospitalist; decision to admit. Course Course Hematology/Chemistry: 06/02/19 04:35 06/02/19 04:45 Orders, Labs, Meds: Lab Review 06/01/19 06/01/19 06/01/19 11:53 11:53 14:15 WBC 16.59 H RBC 4.58 Hgb 14.1 Hct 42.0 MCV 91.7 MCH 30.8 MCHC 33.6 RDW Coeff of Frandy 13.2 Plt Count 324 Immature Gran % (Auto) 0.7 Neut % (Auto) 80.6 H Lymph % (Auto) 11.1 Ray % (Auto) 5.5 Eos % (Auto) 1.7 Baso % (Auto) 0.4 Immature Gran # (Auto) 0.1 Neut # (Auto) 13.4 H Lymph # (Auto) 1.8 Ray # (Auto) 0.9 Eos # (Auto) 0.3 Baso # (Auto) 0.1 Sodium 135.5 Potassium 4.22 Chloride 99.1 Carbon Dioxide 26.1 Anion Gap 14.52 BUN 15.7 Creatinine 1.97 H Estimated GFR (MDRD) 26.00 BUN/Creatinine Ratio 7.96 Glucose 254.7 H Calcium 9.20 Total Bilirubin 1.16 AST 23.5 ALT 21.8 Alkaline Phosphatase 190.0 H Total Protein 7.64 Albumin 4.28 Globulin 3.36 Albumin/Globulin Ratio 1.27 Urine Color Red Urine Clarity Cloudy Urine pH 6.0 Ur Specific [place] 1.015 Urine Protein 3+ Urine Glucose (UA) Trace Urine Ketones Negative Urine Blood 3+ Urine Nitrite Positive Urine Bilirubin 2+ Urine Urobilinogen 1.0 Ur Leukocyte Esterase Trace Urine Microscopic RBC Tntc Urine Microscopic WBC 5-10 Ur Squamous Epith Cells Not present Urine Bacteria 1+ Orders Category Date Time Status ADMIT PATIENT INPATIENT .TO [facility] (NON-MONITORED ADMISSION 06/01/19 15:49 Active BED) NPO REMINDER: IMAGING ONCE CARE 06/01/19 12:01 Completed CBC W/ AUTO DIFF Stat LAB 06/01/19 11:53 Completed COMPREHENSIVE METABOLIC PANEL Stat LAB 06/01/19 11:53 Completed URINALYSIS C & S IF INDICATED Stat LAB 06/01/19 14:15 Completed URINE CULTURE Stat LAB 06/01/19 14:15 Results Ketorolac Tromethamine [Toradol] MEDS 06/01/19 12:23 Discontinued 15 mg IVP ONCE STA Ondansetron HCl/Pf [Zofran 4 mg/2 ml] MEDS 06/01/19 11:38 Discontinued 4 mg IVP ONCE STA Sodium Chloride 0.9% [Sodium Chloride] 1,000 ml MEDS 06/01/19 11:[address] ABD/PEL WO RENAL STONE PROT Stat RADS 06/01/19 12:01 Completed Medications Generic Name Dose Route Start Last Admin Trade Name Freq PRN Reason Stop Dose Admin Acetaminophen 650 mg 06/01/19 16:39 06/01/19 17:27 Tylenol PO 650 mg Q4H PRN Administration Mild Pain Hydrocodone Bitart/Acetaminophen 1 tab 06/01/19 17:18 06/02/19 05:53 [place] 5-325 PO 1 tab Q6HR PRN Administration Pain Aspirin 81 mg 06/02/19 08:00 06/02/19 09:24 Aspirin Ec PO 81 mg DAILYWM SUSANA Administration Enoxaparin Sodium 40 mg 06/01/19 17:00 06/01/19 17:28 Lovenox SUBCUT 40 mg DAILY@1700 SUSANA Administration Fluoxetine HCl 20 mg 06/02/19 09:00 06/02/19 09:24 Prozac PO 20 mg DAILY SUSANA Administration Potassium Chloride/Sodium Chloride 1,000 mls @ 75 mls/hr 06/01/19 17:00 06/02/19 06:19 Sodium Chloride 0.9%-Kcl 20 Meq IV 75 mls/hr .[id number] SUSANA Administration CEFTRIAXONE/D5W 1 GM PREMIX 1 gm in 50 mls @ 75 mls/hr 06/02/19 09:00 06/02/19 09:24 Rocephin 1 Gm/50 Ml D5w IV 06/05/19 08:59 75 mls/hr DAILY SUSANA Administration Insulin Human Regular 0 unit 06/01/19 17:13 06/02/19 05:53 Humulin R SUBCUT 3 unit PRN PRN Administration Hyperglycemia Protocol Levothyroxine Sodium 88 mcg 06/02/19 06:30 06/02/19 05:53 Synthroid PO 88 mcg DAILY@0630 SUSANA Administration Losartan Potassium 50 mg 06/01/19 17:00 06/02/19 09:24 Cozaar PO 50 mg DAILY SUSANA Administration Metoprolol Tartrate 50 mg 06/01/19 21:00 06/02/19 09:24 Lopressor PO 50 mg BID SUSANA Administration Ondansetron HCl 4 mg 06/01/19 16:39 Zofran 4 Mg/2 Ml IVP Q6H PRN nausea Trazodone HCl 100 mg 06/01/19 21:00 Desyrel PO BEDTIME PRN Insomnia Triamcinolone Acetonide 1 applic 06/01/19 21:00 06/02/19 09:27 Kenalog 0.1% TP Not Given BID SUSANA Discontinued Medications Generic Name Dose Route Start Last Admin Trade Name Freq PRN Reason Stop Dose Admin Sodium Chloride 1,000 mls @ 1,000 mls/hr 06/01/19 11:38 06/01/19 11:49 Sodium Chloride IV 06/01/19 12:37 1,000 mls/hr BOLUS STA Administration CEFTRIAXONE/D5W 1 GM PREMIX 1 gm in 50 mls @ 75 mls/hr 06/01/19 16:17 06/01/19 16:29 Rocephin 1 Gm/50 Ml D5w IV 06/01/19 16:56 75 mls/hr ONCE STA Administration Ketorolac Tromethamine 15 mg 06/01/19 12:23 06/01/19 12:30 Toradol IVP 06/01/19 12:24 15 mg ONCE STA Administration Ondansetron HCl 4 mg 06/01/19 11:38 06/01/19 11:49 Zofran 4 Mg/2 Ml IVP 06/01/19 11:39 4 mg ONCE STA Administration Ondansetron HCl 4 mg 06/01/19 16:44 06/01/19 17:28 Zofran 4 Mg/2 Ml IVP 06/01/19 16:45 4 mg ONCE ONE Administration Tamsulosin HCl 0.4 mg 06/02/19 07:50 06/02/19 09:24 Flomax PO 06/02/19 07:51 0.4 mg ONCE STA Administration Vital Signs: Temp Pulse Resp BP Pulse Ox 06/01/19 10:57 97.7 F 71 20 228/101 H 98 Discharge Plan Discharge Patient Disposition: ADMITTED INPATIENT Discharge Problem: Hydronephrosis, Acute UTI, Pyelonephritis Instructions: Chronic Kidney Disease (DC), Hydronephrosis (DC) Additional Instructions: TRANSFERRED TO [facility] [place] ED Provider: ROBIN LAKE Condition: Stable Discharge Date/Time: 06/01/19 16:44
[2019-06-01] MEDS ORDERED: TORADOL IVP STA (12:23)
--- NOTE | 2019-06-01 13:46 | CT ---
Exam: CT abdomen and pelvis without contrast Date: 06/01/2019 Comparison: CT abdomen pelvis 05/24/2019 History: Abdominal pain. Right kidney stone TECHNIQUE: Axial CT images through the abdomen and pelvis were obtained without oral or IV contrast. MPR images obtained. FINDINGS: Mild diffuse fatty infiltration of the liver. Spleen is normal in size. No adrenal mass. No peripancreatic fluid collection or inflammatory changes are seen. Worsening severe right hydron ephrosis with interval increased perirenal fat stranding secondary to a 3 x 2.5 mm obstructing calcul us at the right ureterovesicle junction best seen on axial image 124. This stone was previously seen in a lower pole bonny of the right kidney on 05/24/2019. There is left renal atrophy. No bowel obs truction. The appendix is not identified, but no secondary findings of acute sinusitis. Terminal il eum appears normal. Urinary bladder is decompressed. No pelvic or inguinal lymphadenopathy. There are atheromatous changes of the abdominal aorta without aneurysm. No mesenteric or retroperitoneal l ymphadenopathy. No worrisome blastic or lytic osseous lesions in the abdomen or pelvis. Impression: Worsening severe right hydronephrosis secondary to a 3 x 2.5 mm obstructing calculus at t he right ureterovesicle junction. Differential diagnosis for pararenal fat stranding includes pyelon ephritis in the appropriate clinical setting.
[2019-06-01] MEDS ORDERED: ROCEPHIN 1 GM/50 ML D5W 1 GM/50 ML BAG IV STA (16:17)
[2019-06-01] MEDS ORDERED: TYLENOL PO PRN (16:39)
[2019-06-01] MEDS ORDERED: ZOFRAN 4 MG/2 ML IVP PRN (16:39)
[2019-06-01] MEDS ORDERED: ZOFRAN 4 MG/2 ML IVP ONE (16:44)
[2019-06-01] MEDS ORDERED: LOVENOX SUBCUT SCH (17:00)
[2019-06-01] MEDS: COZAAR PO SCH (17:27)
[2019-06-01] MEDS: SODIUM CHLORIDE 0.9%-KCL 20 MEQ 1,000 ML IV SCH (17:28)
--- NOTE | 2019-06-01 17:58 | PCM ---
Chief Complaint Chief Complaint: right flank pain with nausea and vomiting History of Present Illness History of Present Illness: Mrs Soto is a 64 year old female with HTN, diabetes non insulin dependent, chronic kidney disease with left kidney atrophy, coronary artery disease with NM x 3 and stenting, hypothyroidism, and gouty arthritis who presents to emergency this morning with complaint of right flank pain with nausea and vomiting. Pt previously seen in ED about 1 week ago with similar complaint. She was treated conservatively and released. CT scan of abdomen at that time revealed obstructing calcalus. Pt apparently felt better until this morning when her sxs returned. Repeat CT compared to CT on 05/24/19 reveals worsening right hydronephrosis with increased perirenal fat stranding secondary to 3 x 2.5mm obstructing calcalus at right ureterovesicle junction, left renal atrophy, no bowel obstruction. Pt received IV fluids, pain medication, and ceftriaxone while in ED. She is admitted nausea vomitng right flank pain UTI/pyelonephritis. Pt is examined at the bedside in the ED. She notes she had blood in her urine a week ago and now it has returned. she feels the need to urinate but nothing comes out. she hasn't eaten or drank anything since last evening due to nausea. she vomited after coming to ED today. she says she has never had kidney stones that she is aware of. she saw a urologist at [facility] about 2 1/2 years ago because she was told one of her kidneys was enlarged. 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 She states she hasn't had these type symptoms in the past. she denies fever chills rigors at home. she denies current chest pain or shortness of breath. Review of Systems Constitutional: Denies fever, chills, weakness, sweats, fatigue, loss of appetite and other Eyes: Denies blurred vision, double-vision, discharge, itching, pain, redness, photophobia and other Ears: Denies pain, bleeding, drainage, ringing, hearing loss and other Nose: Denies bleeding, congestion, discharge and other Throat: Denies pain, swelling, voice change and other Mouth: Reports other (edentulous upper with poor dentition lower); Denies bleeding, pain and swelling Respiratory: Denies cough, shortness of air, wheeze, hemoptysis, pain with breathing and other Cardiovascular: Denies chest pain, left arm pain, diaphoresis, PND, orthopnea, edema, palpitations, syncope and other Gastrointestinal: Reports nausea and vomiting Genitourinary: Reports hematuria, frequency and other (urgency); Denies dysuria, incontinence, flank pain, vaginal discharge, abnormal bleeding and pelvic pain Neurological: Denies headache, dizziness, seizure, numbness, weakness, speech difficulty, problems with walking, tremor, fainting and other Musculoskeletal: Reports pain (intermittent joint pain rt to arthritis) Skin: Denies rash, pruritus, lacerations, wounds, bruising and other Hematology: Denies easy bruising, easy bleeding, swollen glands and other Endocrine: Denies weight changes, cold intolerance, heat intolerance, excessive thirst, excessive hunger, polyuria and other Psychiatric: Denies depression, anxiety, sleeplessness, hopelessness, suicidal, hallucinations and other Habits: Denies tobacco use, substance use, alcohol use and other Allergies Allergies Allergy/AdvReac Type Severity Reaction Status Date / Time metformin AdvReac Verified 06/01/19 11:06 nifedipine [From Procardia] AdvReac Verified 06/01/19 11:06 PFSH Medical History (Updated 06/01/19 @ 17:25 by Camiloo) Arthritis Cataract Chest pain Chronic arthritis Chronic kidney disease Depression Diabetes mellitus Gout Heartburn Hyperlipidemia Hypertension Hyperthyroidism Myocardial infarction (~2008) Non-Hodgkin lymphoma (Acute) Non-insulin dependent type 2 diabetes mellitus Urinary incontinence Surgical History History of section History of gynecological procedure History of heart surgery History of musculoskeletal system surgery Placement of stent in coronary artery (~2008) Status post cholecystectomy Status post hysterectomy Family History Mother Cardiac disease Father Cardiac disease Social History (Updated 06/01/19 @ 17:27 by Camiloo) Smoking and tobacco status: Former smoker Tobacco: How many years used: 25 How long ago did patient quit smoking: one and one half years Alcohol intake: never Substance use type: does not use Household members: spouse Medications Medications: Medications Generic Name Dose Route Start Last Admin Trade Name Freq PRN Reason Stop Dose Admin Acetaminophen 650 mg 06/01/19 16:39 Tylenol PO Q4H PRN Mild Pain Aspirin 81 mg 06/02/19 08:00 Aspirin Ec PO DAILYWM [facility] Enoxaparin Sodium 40 mg 06/01/19 17:00 Lovenox SUBCUT DAILY@1700 [facility] Fluoxetine HCl 20 mg 06/02/19 09:00 Prozac PO DAILY [facility] Potassium Chloride/Sodium Chloride 1,000 mls @ 75 mls/hr 06/01/19 17:00 Sodium Chloride 0.9%-Kcl 20 Meq IV .[id number] [facility] CEFTRIAXONE/D5W 1 GM PREMIX 1 gm in 50 mls @ 75 mls/hr 06/02/19 09:00 Rocephin 1 Gm/50 Ml D5w IV 06/05/19 08:59 DAILY [facility] Insulin Human Regular 0 unit 06/01/19 17:13 Humulin R SUBCUT PRN PRN Hyperglycemia Protocol Levothyroxine Sodium 88 mcg 06/02/19 06:30 Synthroid PO DAILY@0630 [facility] Losartan Potassium 50 mg 06/01/19 17:00 Cozaar PO DAILY [facility] Metoprolol Tartrate 50 mg 06/01/19 21:00 Lopressor PO BID [facility] Ondansetron HCl 4 mg 06/01/19 16:39 Zofran 4 Mg/2 Ml IVP Q6H PRN nausea Trazodone HCl 100 mg 06/01/19 21:00 Desyrel PO BEDTIME PRN Insomnia Triamcinolone Acetonide 1 applic 06/01/19 21:00 Kenalog 0.1% TP BID [facility] Body Composition Height: 5 ft 1 in Weight: 192 lb Body Mass Index (BMI): 36.2 Vital Signs Temperature: 98.0 F Pulse Rate: 75 Respiratory Rate: 20 Blood Pressure: 228/101 O2 Sat by Pulse Oximetry: 99 Physical Examination Appearance: Reports Well-appearing and Obese Ill-appearing: Mild Pain Distress: Mild (right flank pain) Eyes: Reports JUNI, EOMI and Conjunctiva clear ENT: Reports Oropharynx normal Neck: Supple Respiratory: Reports Airway patent and Breath sounds clear Cardiovascular: Reports RRR and Pulses normal GI/: Reports Soft, Nontender (right CVA tenderness) and Bowel sounds normal Musculoskeletal: Reports Normal strength and ROM intact Skin: Reports Warm, Dry and Normal color Neurological: Reports Sensation intact and Motor intact Psychiatric: Reports Affect appropriate and Mood appropriate Lab/Tests/Diagnostic Imaging Lab/Tests/Diagnostic Imaging: Lab Review 06/01/19 06/01/19 06/01/19 11:53 11:53 14:15 WBC 16.59 H RBC 4.58 Hgb 14.1 Hct 42.0 MCV 91.7 MCH 30.8 MCHC 33.6 RDW Coeff of Frandy 13.2 Plt Count 324 Immature Gran % (Auto) 0.7 Neut % (Auto) 80.6 H Lymph % (Auto) 11.1 [place] % (Auto) 5.5 Eos % (Auto) 1.7 Baso % (Auto) 0.4 Immature Gran # (Auto) 0.1 Neut # (Auto) 13.4 H Lymph # (Auto) 1.8 [place] # (Auto) 0.9 Eos # (Auto) 0.3 Baso # (Auto) 0.1 Sodium 135.5 Potassium 4.22 Chloride 99.1 Carbon Dioxide 26.1 Anion Gap 14.52 BUN 15.7 Creatinine 1.97 H Estimated GFR (MDRD) 26.00 BUN/Creatinine Ratio 7.96 Glucose 254.7 H Calcium 9.20 Total Bilirubin 1.16 AST 23.5 ALT 21.8 Alkaline Phosphatase 190.0 H Total Protein 7.64 Albumin 4.28 Globulin 3.36 Albumin/Globulin Ratio 1.27 Urine Color Red Urine Clarity Cloudy Urine pH 6.0 Ur Specific [place] 1.015 Urine Protein 3+ Urine Glucose (UA) Trace Urine Ketones Negative Urine Blood 3+ Urine Nitrite Positive Urine Bilirubin 2+ Urine Urobilinogen 1.0 Ur Leukocyte Esterase Trace Urine Microscopic RBC Tntc Urine Microscopic WBC 5-10 Ur Squamous Epith Cells Not present Urine Bacteria 1+ Orders Category Date Time Status ADMIT PATIENT INPATIENT .TO [facility] (NON-MONITORED ADMISSION 06/01/19 15:49 Active BED) 02 THERAPY APPLIED ONCE CARE 06/01/19 16:45 Active ACTIVITY .BR with BRP CARE 06/01/19 16:39 Active BLOOD GLUCOSE MONITORING 0630,1100,1700,2100 CARE 06/01/19 16:41 Active GIVE HS SNACK 2099 CARE 06/01/19 16:40 Active INTAKE & OUTPUT Q8HR CARE 06/01/19 16:39 Active NPO REMINDER: IMAGING ONCE CARE 06/01/19 12:01 Completed VITAL SIGNS Q4HR CARE 06/01/19 16:39 Active ADA 1800 GAETANO. DIET DIETARY 06/01/19 Dinner Ordered CARDIAC DIET DIETARY 06/01/19 Dinner Ordered HS SNACK DIETARY 06/01/19 Dinner Ordered BLOOD CULTURE Routine LAB 06/01/19 16:41 Ordered CBC W/ AUTO DIFF Stat LAB 06/01/19 11:53 Completed COMPREHENSIVE METABOLIC PANEL Stat LAB 06/01/19 11:53 Completed URINALYSIS C & S IF INDICATED Stat LAB 06/01/19 14:15 Completed URINE CULTURE Stat LAB 06/01/19 14:15 Received Acetaminophen [Tylenol] MEDS 06/01/19 16:39 Ordered 650 mg PO Q4H PRN Aspirin [Aspirin EC] MEDS 06/02/19 08:00 Active 81 mg PO DAILYWM Ceftriaxone/D5w 1 gm Premix [Rocephin 1 gm/50 ml D5w] MEDS 06/02/19 09:00 Ordered 1 gm in 50 ml IV DAILY Ceftriaxone/D5w 1 gm Premix [Rocephin 1 gm/50 ml D5w] MEDS 06/01/19 16:17 Discontinued 1 gm in 50 ml IV ONCE Enoxaparin Sodium [Lovenox] MEDS 06/01/19 17:00 Ordered 40 mg SUBCUT DAILY Fluoxetine HCl [Prozac] MEDS 06/02/19 09:00 Active 20 mg PO DAILY Hydrocodone Bit/Acetaminophen [[place] 5-325] MEDS 06/01/19 17:18 Ordered 1 tab PO Q6HR PRN Insulin Regular, Human [Humulin R] MEDS 06/01/19 17:13 Ordered See Protocol SUBCUT PRN PRN Ketorolac Tromethamine [Toradol] MEDS 06/01/19 12:23 Discontinued 15 mg IVP ONCE STA Levothyroxine Sodium [Synthroid] MEDS 06/02/19 06:30 Active 88 mcg PO DAILY@0630 Losartan Potassium [Cozaar] MEDS 06/01/19 17:00 Active 50 mg PO DAILY Metoprolol Tartrate [Lopressor] MEDS 06/01/19 21:00 Active 50 mg PO BID Ondansetron HCl/Pf [Zofran 4 mg/2 ml] MEDS 06/01/19 16:44 Once 4 mg IVP ONCE ONE Ondansetron HCl/Pf [Zofran 4 mg/2 ml] MEDS 06/01/19 11:38 Discontinued 4 mg IVP ONCE STA Ondansetron HCl/Pf [Zofran 4 mg/2 ml] MEDS 06/01/19 16:39 Ordered 4 mg IVP Q6H PRN Potassium Chloride in 0.9%NaCl [Sodium Chloride 0.9%- MEDS 06/01/19 17:00 Ordered KCl 20 Meq] 1,000 ml IV 75 mls/hr Sodium Chloride 0.9% [Sodium Chloride] 1,000 ml MEDS 06/01/19 11:38 Discontinued IV BOLUS Trazodone HCl [Desyrel] MEDS 06/01/19 21:00 Active 100 mg PO BEDTIME PRN Triamcinolone Acetonide [Kenalog 0.1%] MEDS 06/01/19 21:00 Active 1 applic TP BID RESUSCITATION STATUS Routine OTHERS 06/01/19 16:[address] ABD/PEL WO RENAL STONE PROT Stat RADS 06/01/19 12:01 Completed Medications Generic Name Dose Route Start Last Admin Trade Name Freq PRN Reason Stop Dose Admin Acetaminophen 650 mg 06/01/19 16:39 Tylenol PO Q4H PRN Mild Pain Aspirin 81 mg 06/02/19 08:00 Aspirin Ec PO DAILYWM [facility] Enoxaparin Sodium 40 mg 06/01/19 17:00 Lovenox SUBCUT DAILY@1700 [facility] Fluoxetine HCl 20 mg 06/02/19 09:00 Prozac PO DAILY [facility] Potassium Chloride/Sodium Chloride 1,000 mls @ 75 mls/hr 06/01/19 17:00 Sodium Chloride 0.9%-Kcl 20 Meq IV .[id number] [facility] CEFTRIAXONE/D5W 1 GM PREMIX 1 gm in 50 mls @ 75 mls/hr 06/02/19 09:00 Rocephin 1 Gm/50 Ml D5w IV 06/05/19 08:59 DAILY [facility] Insulin Human Regular 0 unit 06/01/19 17:13 Humulin R SUBCUT PRN PRN Hyperglycemia Protocol Levothyroxine Sodium 88 mcg 06/02/19 06:30 Synthroid PO DAILY@0630 [facility] Losartan Potassium 50 mg 06/01/19 17:00 Cozaar PO DAILY [facility] Metoprolol Tartrate 50 mg 06/01/19 21:00 Lopressor PO BID [facility] Ondansetron HCl 4 mg 06/01/19 16:39 Zofran 4 Mg/2 Ml IVP Q6H PRN nausea Trazodone HCl 100 mg 06/01/19 21:00 Desyrel PO BEDTIME PRN Insomnia Triamcinolone Acetonide 1 applic 06/01/19 21:00 Kenalog 0.1% TP BID [facility] Discontinued Medications Generic Name Dose Route Start Last Admin Trade Name Ryan PRN Reason Stop Dose Admin Sodium Chloride 1,000 mls @ 1,000 mls/hr 06/01/19 11:38 06/01/19 11:49 Sodium Chloride IV 06/01/19 12:37 1,000 mls/hr BOLUS STA Administration CEFTRIAXONE/D5W 1 GM PREMIX 1 gm in 50 mls @ 75 mls/hr 06/01/19 16:17 06/01/19 16:29 Rocephin 1 Gm/50 Ml D5w IV 06/01/19 16:56 75 mls/hr ONCE STA Administration Ketorolac Tromethamine 15 mg 06/01/19 12:23 06/01/19 12:30 Toradol IVP 06/01/19 12:24 15 mg ONCE STA Administration Ondansetron HCl 4 mg 06/01/19 11:38 06/01/19 11:49 Zofran 4 Mg/2 Ml IVP 06/01/19 11:39 4 mg ONCE STA Administration Ondansetron HCl 4 mg 06/01/19 16:44 Zofran 4 Mg/2 Ml IVP 06/01/19 16:45 ONCE ONE Assessment (1) Hydronephrosis due to obstruction of ureter: Status: Acute Code(s): N13.2 - Hydronephrosis with renal and ureteral calculous obstruction SNOMED Code(s): 353996487 (2) Pyelonephritis of right kidney: Status: Acute Code(s): N12 - Tubulo-interstitial nephritis, not specified as acute or chronic SNOMED Code(s): 28740695 (3) Hypertension associated with diabetes: Status: Acute Code(s): E11.59 - Type 2 diabetes mellitus with other circulatory complications; I10 - Essential (primary) hypertension SNOMED Code(s): 28091905 Plan Plan: worsening right hydronephrosis due to obstruction of ureter per CT abd/pelvis without contrast, no contrast due to CKD - continue supportive care with IV fluids, pain management, antiemetics UTI/pyelonephritis - UA not impressive with bacteria and small pyuria, 3+blood, red cells tntc, wbc 5- 10; UCx ordered, BCx ordered; currenlty afebrile, no signs of sepsis. ceftriaxone started in ED, continue daily with supportive care as above; pt will need to follow up with urology/nephrology diabetes type 2 non insulin dependent w/hyperglycemia, BS 254 on admission and pt states she has not eaten since 1800hrs on 05/31. in January 2019 A1c 7.06, repaglinide on hold; SSI w/frequent glucose checks, cardiac/ADA diet; hypoglycemia protocol hypertension, BP elevated on admission. pt states has not had her medications for today. continue home losartan; labetalol with parameters prn; monitor chronic kidney disease, pt has left atrophic kidney; Cr 1.97 on admission; records show Cr 2.40 on 05/24/19; cont IVF; monitor hypothyroidism, records show pts TSH 0.205 on 12/16; recheck TSH and Free T4; continue levothyroxine Hx CAD/NM x 3/stents, no current complaint of chest pain or dyspnea; tele and EKG if pt develops sxs, ntg SL prn morbid obesity due to excess calorie intake; discussed portion control and watching carbohydrate intake elevated triglycerides, records show triglycerides 255 01/2019; no statin or fenofibrate listed in home med list DVT PPx: lovenox CODE: DNI, CPR only [facility] Medical History (Updated 06/01/19 @ 17:25 by Camiloo) Arthritis Cataract Chest pain Chronic arthritis Chronic kidney disease Depression Diabetes mellitus Gout Heartburn Hyperlipidemia Hypertension Hyperthyroidism Myocardial infarction (~2008) Non-Hodgkin lymphoma (Acute) Non-insulin dependent type 2 diabetes mellitus Urinary incontinence Family History Mother Cardiac disease Father Cardiac disease Social History (Updated 06/01/19 @ 17:27 by Camiloo) Smoking and tobacco status: Former smoker Tobacco: How many years used: 25 How long ago did patient quit smoking: one and one half years Alcohol intake: never Substance use type: does not use Household members: spouse Female Reproductive History Menstrual Hx Hysterectomy: Yes Hx Tubal Ligation: No
[2019-06-01] MEDS: HUMULIN R SUBCUT PRN ×2 (18:04→20:32)
[2019-06-01] MEDS: LOPRESSOR PO SCH (20:09)
[2019-06-01] MEDS: KENALOG 0.1% TP SCH (20:10)
[2019-06-01] MEDS: NORCO 5-325 PO PRN (20:32)
[2019-06-01 20:51] VITALS: TEMP 98.1
[2019-06-01] MEDS ORDERED: DESYREL PO PRN (21:00)
[2019-06-01] MEDS ORDERED: REPAGLINIDE 0.5 MG PO SCH (21:00)
[2019-06-02 04:57] VITALS: BP 148/63
[2019-06-02] MEDS: NORCO 5-325 PO PRN (05:53)
[2019-06-02] MEDS: HUMULIN R SUBCUT PRN (05:53)
[2019-06-02] MEDS: SODIUM CHLORIDE 0.9%-KCL 20 MEQ 1,000 ML IV SCH (06:19)
[2019-06-02] MEDS ORDERED: SYNTHROID PO SCH (06:30)
[2019-06-02] MEDS ORDERED: FLOMAX PO STA (07:50)
--- NOTE | 2019-06-02 07:56 | PCM.DC ---
Final Diagnosis: primary: oliguria worsening hydronephrosis obstructing nephrolithiasis CKD w/one functioning kidney secondary: Diabetes 2 not on insulin therapy CAD/MD x 3 in past/stents Hypertension Hypothyroidism morbid obesity (1) Hydronephrosis due to obstruction of ureter: Status: Acute Code(s): N13.2 - Hydronephrosis with renal and ureteral calculous obstruction SNOMED Code(s): 274767057 (2) Pyelonephritis of right kidney: Status: Acute Code(s): N12 - Tubulo-interstitial nephritis, not specified as acute or chronic SNOMED Code(s): 02114164 (3) Hypertension associated with diabetes: Status: Acute Code(s): E11.59 - Type 2 diabetes mellitus with other circulatory complications; I10 - Essential (primary) hypertension SNOMED Code(s): 44383871 Medications at Discharge: Ambulatory Orders Medication Instructions Recorded aspirin 81 mg PO DAILYWM 07/22/17 repaglinide 0.5 mg PO BID #180 tab-cap 11/14/18 fluoxetine 20 mg capsule 20 mg PO DAILY #90 caplet 04/04/19 levothyroxine 88 mcg tablet 88 mcg PO DAILY #30 tab-cap 04/04/19 metoprolol tartrate 50 mg tablet 50 mg PO BID #180 tab-cap 04/04/19 trazodone 100 mg tablet 100 mg PO QHS PRN #30 tab 04/04/19 losartan 50 mg tablet 50 mg PO QDAY #30 tab 05/16/19 triamcinolone acetonide 0.1 % 1 applic TP BID #60 gm 05/16/19 topical cream ondansetron HCl [Zofran] 4 mg PO Q6H PRN #10 tab 05/24/19 omeprazole 20 mg PO DAILY 06/01/19 brief HPI: 64 year old female with HTN, CAD/MIx3/stents, CKD, left congenital kidney atrophy, diabetes type 2 not on insulin therapy who presented to ED on 06/01 with c/o right flank pain, hematuria, with nausea snd vomiting. Didn't complain of dysuria. States she had been able to void as usual prior to coming to hospital. CT wo revealed obstructing ureteral calculus 3 x 2.5mm, worsening hydronephrosis. Pt not febrile but did have elevated white count of 16. Pt admitted for UTI/pyelonephritis and started on empiric ceftriaxone, IV fluids, pain management. Avoid NSAIDS or nephrotoxic agents. Pt hasn't seen a home restoration service supervisor in the past. CKD managed by PCP. Saw urologist >2 years ago because it was thought that she had an enlarged kidney. This is when she was told that she has atrophic left kidney. Hospital course: Pt continued on IV fluids @75cc overnight. Repeat labs this am reveal worsening kidney function with BUN 22.9 Cr 3.70 GFR 12, increased from BUN 15.7 Cr 1.97 on admission the evening before. Pt had no recorded urine output overnight. Pt states she has urge but not able to void. Bladder scan reveal only 60cc in bladder. Pt remains afebrile. VS 148/63 65 18 98.1 96% RA. flomax is given prior to transfer. PTs repaglinide was held. Her diabetes was treated with sliding scale insulin. S he was continued on her home losartan for blood pressure. She was continue on her metoprolol and ASA for her CAD. She continued her levothyroxine for hypothyroidism. Pts TSH elevated at 15.3 Free T4 wnl at 1.17. Lovenox subcu for DVT prophylaxis. Due to pts declining clinical condition and no urology or nephrology support, it was decided to transfer pt for definitive care. I spoke with Dr. Lakhani, urologist, at [facility], who said he would agree to see the pt in consult as long as hospital medicine would accept her. I then spoke with Dr Hylton, Hospitalist, who agreed to accept pt with dx of obstructing nephrolithiasis with surgical consult. Pt remains hemodynamically stable and deemed safe for discharge/transfer. Pt is DNI, CPR only. Pt will be transferred via EMS.
[2019-06-02] MEDS ORDERED: ASPIRIN EC PO SCH (08:00)
[2019-06-02] MEDS ORDERED: ROCEPHIN 1 GM/50 ML D5W 1 GM/50 ML BAG IV SCH (09:00)
[2019-06-02] MEDS ORDERED: PROZAC PO SCH (09:00)
[2019-06-02] MEDS: LOPRESSOR PO SCH (09:24)
[2019-06-02] MEDS: COZAAR PO SCH (09:24)
[2019-06-02] MEDS: KENALOG 0.1% TP SCH (09:27)
== END 2019-06-02 10:15 | disposition short-term general hospital (02) | DRG 690 ==
LOC: ED 10:56 → MEDSURG B 15:54
PROVIDERS: ADMIT Nurse Practitioner Family; ATTEND Nurse Practitioner Family
DX: Z87.891 Personal history of nicotine dependence; E78.5 Hyperlipidemia, unspecified; I25.10 Atherosclerotic heart disease of native coronary artery without angina pectoris; E05.90 Thyrotoxicosis, unspecified without thyrotoxic crisis or storm; I10 Essential (primary) hypertension; N13.6 Pyonephrosis; N18.9 Chronic kidney disease, unspecified; N39.0 Urinary tract infection, site not specified; M19.90 Unspecified osteoarthritis, unspecified site; Z95.5 Presence of coronary angioplasty implant and graft; E11.59 Type 2 diabetes mellitus with other circulatory complications; I25.2 Old myocardial infarction; R07.9 Chest pain, unspecified; E66.01 Morbid (severe) obesity due to excess calories

== ENCOUNTER 2024-02-13 09:52 | Observation (INO) ==
--- NOTE | 2024-02-13 10:19 | ED.PDOC ---
General ED Provider: Dr. ALDO GURROLA MD Chief Complaint: Chest Pain Stated Complaint: Patient is a 68-year-old female that reported to the emergency department for chest pain. Patient stated the chest pain started yesterday around noon. Patient stated that has been intermittent in consistency. Patient states that her chest pain is sharp and radiates across her chest. Patient stated that sometimes it radiates to her back. Patient stated that its worst is a 9. Patient stated is currently an 8. Patient stated that she does have a history of 3 heart attacks and has had 3 stents placed. Patient stated that she has been seen by cardiology over in [facility]. Patient stated with these episodes of chest pain that she has not had any vomiting or diaphoresis. Patient did state that she has had some nausea. Patient stated that the pain is not reproducible with touch or movements. Patient states that nothing makes her symptoms worse or better. Patient denied any medications to help with her symptoms. Patient has a past medical history of diabetes, hypertension, CAD, GERD, anxiety and depression, and CKD. Patient currently denies any dizziness or syncope, shortness of breath, fever, abdominal pain, or any other acute symptoms not currently mentioned in the HPI. Patient's vital signs are currently stable however patient's BP is 183/90, pulse of 111, respirations 13, temperature 98.3, and O2 sat 98% on room air. Patient GCS is 15. Time Seen by Provider: 02/13/24 09:53 Mode of Arrival: Walk-In Information Source: Patient Exam Limitations: No limitations Primary Care Provider: TYRA MYERS APRN,[facility] T[facility] Documentation Reviewed and Agree: Yes Does Patient Take Opioids?: No Is Patient Opioid Naive?: No What is Opioid Naive?: *Opioid Naive implies the patient is not already taking opioids or not chronically receiving opioids on a daily basis. *PRN dosing is not "usually" associated with tolerance. *Patients are at higher risk of over-sedation and aspiration. Is Patient Opioid Tolerant?: No What is Opioid Tolerant?: *Opioid Tolerance implies less than the expected response to an opioid. *Acquired tolerance is defined by the patient taking 60mg of oral morphine daily (or equianalgesic dose of another opioid) for 1 week or more. *Often associated with chronic pain. *May take more than usual dose to achieve desired pain control. Review of Systems Review Of Systems Constitutional: Reports No symptoms Eyes: Reports No symptoms Ears, Nose, Mouth, Throat: Reports No symptoms Respiratory: Reports No symptoms Cardiac: Reports Chest pain GI: Reports No symptoms : Reports No symptoms Musculoskeletal: Reports No symptoms Skin: Reports No symptoms Neurological: Reports No symptoms Endocrine: Reports No symptoms Hematologic/Lymphatic: Reports No symptoms All Other Systems: Reviewed and Negative [facility] Medical History CKD (chronic kidney disease) N18.9 - Chronic kidney disease, unspecified (ICD-10) History of renal stone 06/02/19 Right [facility] Z87.442 - Personal history of urinary calculi (ICD-10) Non-Hodgkin lymphoma C85.90 - Non-Hodgkin lymphoma, unspecified, unspecified site (ICD-10) Chest pain R07.9 - Chest pain, unspecified (ICD-10) Myocardial infarction (~2008) Dr. Erwin. Two stents placed I21.9 - Acute myocardial infarction, unspecified (ICD-10) Depression F32.9 - Major depressive disorder, single episode, unspecified (ICD-10) Gout M10.9 - Gout, unspecified (ICD-10) Urinary incontinence R32 - Unspecified urinary incontinence (ICD-10) Chronic arthritis M19.90 - Unspecified osteoarthritis, unspecified site (ICD-10) Family History Mother Cardiac disease Gout FATHER Cardiac disease Diabetes Social History Smoking and tobacco status: Former smoker Tobacco: How many years used: 25 How long ago did patient quit smoking: one and one half years Alcohol intake: never Substance use type: does not use Household members: spouse Surgical History History of renal stent History of removal of calculus of renal pelvis through percutaneous nephrostomy 06/02/[address] Colmen[facility] Z98.890 - Other specified postprocedural states (ICD-10) Z87.442 - Personal history of urinary calculi (ICD-10) History of cardiac catheterization 01/03/2018; 01/18/18; 03/29/18 Z98.890 - Other specified postprocedural states (ICD-10) History of coronary angioplasty with insertion of stent 01/18/18 L&RHC; X2 stents; 01/03/18 Angioplasty-see sx hx; Dr. Erwin; On ASA daily. Z95.5 - Presence of coronary angioplasty implant and graft (ICD-10) History of neck surgery (08/16/17) Dr. Yu 2002 Z98.890 - Other specified postprocedural states (ICD-10) Status post hysterectomy Total Z90.710 - Acquired absence of both cervix and uterus (ICD-10) Status post cholecystectomy Z90.49 - Acquired absence of other specified parts of digestive tract (ICD- 10) History of section Z98.891 - History of uterine scar from previous surgery (ICD-10) Cataract Bilateral w/ lens implants H26.9 - Unspecified cataract (ICD-10) Female Reproductive History Menstrual Hx Hysterectomy: Yes (1980) Hx Tubal Ligation: No Physical Exam Physical Exam Appearance: Reports Well-appearing, No pain distress and Well-nourished Ill-appearing: None Pain Distress: None Eyes: Reports JUNI, EOMI and Conjunctiva clear ENT: Reports Ears normal, Nose normal and Oropharynx normal Neck: Supple Respiratory: Reports Airway patent, Breath sounds clear, Breath sounds equal and Respirations nonlabored Cardiovascular: Reports RRR, Pulses normal, No rub and Murmur (Patient has a S1 murmur heard best at the aortic post.) GI/: Reports Soft, Nontender, No masses and Bowel sounds normal Musculoskeletal: Reports Normal strength, ROM intact, No edema and No calf tenderness Skin: Reports Warm, Dry and Normal color Neurological: Reports Sensation intact, Motor intact, Reflexes intact, Alert and Oriented Psychiatric: Reports Affect appropriate and Mood appropriate Course Course 02/13/24 10:15 02/13/24 10:15 Orders, Labs, Meds: Lab Review 02/13/24 02/13/24 02/13/24 10:14 10:15 12:10 WBC 12.48 H RBC 4.66 Hgb 13.7 Hct 42.5 MCV 91.2 MCH 29.4 MCHC 32.2 RDW Coeff of Frandy 14.3 Plt Count 325 Immature Gran % (Auto) 0.3 Neut % (Auto) 79.1 H Lymph % (Auto) 14.4 Cotton % (Auto) 4.1 Eos % (Auto) 1.8 Baso % (Auto) 0.3 Neut # (Auto) 9.9 H Lymph # (Auto) 1.8 Cotton # (Auto) 0.5 Eos # (Auto) 0.2 Baso # (Auto) 0.0 Immature Gran # (Auto) 0.0 Sodium 139.1 Potassium 3.47 L Chloride 101.1 Carbon Dioxide 23.8 Anion Gap 17.67 BUN 27.2 H Creatinine 1.47 H Estimated GFR (MDRD) 35.00 BUN/Creatinine Ratio 18.50 Glucose 302.2 H Lactic Acid 2.83 H Calcium 9.26 Total Bilirubin 1.72 H AST 32.3 ALT 25.5 Alkaline Phosphatase 148.3 H Troponin I < 0.012 < 0.012 NT-Pro-B Natriuret Pep 1440 H Total Protein 7.53 Albumin 4.33 Globulin 3.20 Albumin/Globulin Ratio 1.35 Influ A Molecular Assay Negative by naat Influ B Molecular Assay Negative by naat SARS CoV-2 RNA Rapid VANDANA Negative Orders Category Date Time Status EKG-(ED ONLY) Stat CARDIO 02/13/24 10:03 Completed EKG-(ED ONLY) Stat CARDIO 02/13/24 10:52 Completed ED APPLY O2 .ONCE EMERGENCY 02/13/24 10:03 Active ED REAL ESTATE PORTFOLIO MANAGER APPLIED .ONCE EMERGENCY 02/13/24 10:03 Active BLOOD CULTURE (ED ONLY) Stat LAB 02/13/24 12:10 Received CBC W/ AUTO DIFF Stat LAB 02/13/24 10:15 Completed COMPREHENSIVE METABOLIC PANEL Stat LAB 02/13/24 10:15 Completed FLU A/B MOLECULAR Stat LAB 02/13/24 10:14 Completed LACTIC ACID Stat LAB 02/13/24 10:15 Completed NT-PROBNP(ED) Stat LAB 02/13/24 10:15 Completed SARS COV-2 RNA RAPID VANDANA Stat LAB 02/13/24 10:14 Completed TROPONIN I Stat LAB 02/13/24 10:15 Completed TROPONIN I Stat LAB 02/13/24 12:10 Completed URINALYSIS C & S IF INDICATED Stat LAB 02/13/24 11:30 Uncollected Aspirin [Aspirin Chewable] Meds 02/13/24 10:04 Discontinued 324 mg PO ONCE STA Nitroglycerin [Nitrostat] Meds 02/13/24 10:18 Discontinued 0.4 mg SL ONCE STA Piperacillin Sodium/Tazobactam [Zosyn 3.375 gm] 3.375 Meds 02/13/24 11:37 Discontinued gm 0.9 % Sodium Chloride [Sodium Chloride 100Ml] 100 ml IV ONCE Potassium Chloride [Potassium Chl 10% Oral Za] Meds 02/13/24 12:02 Discontinued 20 meq PO ONCE STA Ringers Lactated Solution [Lactated Ringers] 1,000 ml Meds 02/13/24 11:29 Discontinued IV BOLUS CHEST, 1V AP ONLY Stat RADS 02/13/24 10:03 Completed Medications Discontinued Medications Generic Name Dose Route Start Last Admin Trade Name Freq PRN Reason Stop Dose Admin Aspirin 324 mg 02/13/24 10:04 02/13/24 10:23 Aspirin 81 Mg Tab.Chew PO 02/13/24 10:05 324 mg ONCE STA Administration Lactated Ringer's 1,000 mls @ 1,000 mls/hr 02/13/24 11:29 02/13/24 11:49 Lactated Ringers IV 02/13/24 12:28 1,000 mls/hr BOLUS ONE Administration Piperacillin Sod/Tazobactam 100 mls @ 200 mls/hr 02/13/24 11:37 02/13/24 12:17 Sod 3.375 gm/ Sodium Chloride IV 02/13/24 12:06 200 mls/hr ONCE ONE Administration Nitroglycerin 0.4 mg 02/13/24 10:18 02/13/24 10:25 Nitroglycerin 0.4 Mg Tab.Subl SL 02/13/24 10:19 0.4 mg ONCE STA Administration Potassium Chloride 20 meq 02/13/24 12:02 02/13/24 12:19 Potassium Chloride 40 Meq/30 Ml Cup PO 02/13/24 12:03 20 meq ONCE STA Administration Vital Signs: Temp Pulse Resp BP Pulse Ox 02/13/24 10:03 98.3 F 111 H 13 183/90 H 98 JOSUE Risk Score JOSUE Risk Score: Risk Score Odds of by 30D 0 0.1 (0.1-0.2) 1 0.3 (0.2-0.3) 2 0.4 (0.3-0.5) 3 0.7 (0.6-0.9) 4 1.2 (1.0-1.5) 5 2.2 (1.9-2.6) 6 3.0 (2.5-3.6) 7 4.8 (3.8-6.1) Physician Progress Note: Patient is a 68-year-old female that reported to the emergency department for chest pain. Patient stated the chest pain started yesterday around noon. Patient stated that has been intermittent in consistency. Patient states that her chest pain is sharp and radiates across her chest. Patient stated that sometimes it radiates to her back. Patient stated that its worst is a 9. Patient stated is currently an 8. Patient stated that she does have a history of 3 heart attacks and has had 3 stents placed. Patient stated that she has been seen by cardiology over in [facility]. Patient stated with these episodes of chest pain that she has not had any vomiting or diaphoresis. Patient did state that she has had some nausea. Patient stated that the pain is not reproducible with touch or movements. Patient states that nothing makes her symptoms worse or better. Patient denied any medications to help with her symptoms. Patient has a past medical history of diabetes, hypertension, CAD, GERD, anxiety and depression, and CKD. Patient currently denies any dizziness or syncope, shortness of breath, fever, abdominal pain, or any other acute symptoms not currently mentioned in the HPI. Patient's vital signs are currently stable however patient's BP is 183/90, pulse of 111, respirations 13, temperature 98.3, and O2 sat 98% on room air. Patient GCS is 15. -Will order an EKG, chest x-ray, and baseline labs. -Will give aspirin 324 mg once. -Will give sublingual nitroglycerin 0.4 mg for chest pain. -EKG shows sinus tachycardia with a rate of 109 bpm. QTc 455 ms, QRS 88 ms, and no acute ST elevations noted. This was interpreted by the ER physician. -It appears patient may have went into V. tach on the monitor however I would like a repeat EKG. Will order an EKG repeat. -The patient's lactic acid is slightly elevated at 2.83 with a slight leukocytosis of 12.48. -Will also get blood cultures. -Will give the patient IV lactated ringer 1 L bolus. -As patient appears to be sepsis will give the patient IV Zosyn 3.375 g for septicemia. -Patient's troponin is negative. Will repeat troponin at 2 hours. -Repeat EKG shows sinus tachycardia with a rate of 112 bpm. QTc 491 ms, QRS 88 ms, NV interval 138 ms, no acute ST elevations noted. This was interpreted by the ER physician. -Patient's BUN and creatinine are elevated however they are at patient's baseline for her CKD. -Chest x-ray shows no acute cardiopulmonary disease. This was interpreted by the ER physician. -Flu and SARS negative. -Second troponin negative. -([id number]) spoke to the hospitalist at [facility], ERLIN Cast and discussed the patient's case with her. Discussed the patient's current treatment, history of present illness, and current labs and radiographs. She agreed admit the patient to observation for ACS rule out and sepsis. Discharge Plan Discharge Patient Disposition: PLACED OBSERVATION Discharge Problem: Septicemia, Hypokalemia, Stable angina Chest pain Qualifiers: Chest pain type: unspecified Qualified Code(s): R07.9 - Chest pain, unspecified Sepsis Qualifiers: Sepsis type: sepsis due to unspecified organism Sepsis acute organ dysfunction status: unspecified Qualified Code(s): A41.9 - Sepsis, unspecified organism CKD (chronic kidney disease) Qualifiers: Chronic kidney disease stage: unspecified stage Qualified Code(s): N18.9 - Chronic kidney disease, unspecified Did you review [place] [employer] for ALL controlled substances?: Not Applicable ED Provider: ALDO GURROLA Condition: Stable
[2024-02-13] MEDS: ASPIRIN CHEWABLE PO STA (10:23)
[2024-02-13 10:24] LABS: BASOPHILS % (AUTO) 0.3 % (0.0-3.0); EOSINOPHILS # (AUTO) 0.2 K/ul (0.0-0.7); EOSINOPHILS % (AUTO) 1.8 % (0.0-7.0); HEMATOCRIT 42.5 % (37.0-47.0); HEMOGLOBIN 13.7 g/dl (12.0-16.0); IMMATURE GRANULOCYTE % (AUTO) 0.3 % (0.0-5.0); LYMPHOCYTES # (AUTO) 1.8 K/uL (0.60-3.4); LYMPHOCYTES % (AUTO) 14.4 (10.0-50.0); MEAN CORPUSCULAR HEMOGLOBIN 29.4 pg (27.0-31.0); MEAN CORPUSCULAR HGB CONC 32.2 (31.8-35.4); MEAN CORPUSCULAR VOLUME 91.2 fl (81.0-99.0); MONOCYTES # (AUTO) 0.5 K/uL (0.4-2.0); MONOCYTES % (AUTO) 4.1 (0-10); NEUTROPHILS # (AUTO) 9.9 K/ul (2.0-6.9); NEUTROPHILS % (AUTO) 79.1 % (42.2-75.2); PLATELET COUNT 325 10^3/uL (140-440); RDW COEFFICIENT OF VARIATION 14.3 % (11.6-14.8); RED BLOOD COUNT 4.66 10^6/ul (4.20-5.40); WHITE BLOOD COUNT 12.48 K/ul (4.6-10.2)
[2024-02-13] MEDS: NITROSTAT SL STA (10:25)
[2024-02-13 10:36] LABS: ALANINE AMINOTRANSFERASE 25.5 U/L (0-35); ALBUMIN 4.33 g/dL (3.5-5.0); ALKALINE PHOSPHATASE 148.3 U/L (53-141); ASPARTATE AMINO TRANSFERASE 32.3 U/L (14-36); BILIRUBIN,TOTAL 1.72 mg/dL (0.2-1.3); BLOOD UREA NITROGEN 27.2 mg/dL (7-17); CALCIUM 9.26 mg/dL (8.4-10.2); CARBON DIOXIDE 23.8 mmol/L (22-30.0); CHLORIDE 101.1 mmol/L (98-107); CREATININE 1.47 mg/dL (0.60-1.30); GLUCOSE 302.2 mg/dL (74-106); POTASSIUM 3.47 mmol/L (3.5-5.1); SODIUM 139.1 mmol/L (134.5-145); TOTAL PROTEIN 7.53 g/dL (6.3-8.2)
[2024-02-13 10:42] LABS: MOLECULAR FLU A NEGATIVE BY NAAT (NEGATIVE); MOLECULAR FLU B NEGATIVE BY NAAT (NEGATIVE); SARS COV-2 RNA RAPID NAAT NEGATIVE (NEGATIVE)
[2024-02-13 10:48] LABS: TROPONIN I < 0.012 ng/ml (0.0000-0.120)
--- NOTE | 2024-02-13 11:12 | DI ---
EXAM: CHEST, SINGLE VIEW HISTORY: Chest pain COMPARISON: 11/13/2022 IMPRESSION: Cardiomediastinal countours appear stable. There is no focal pulmonary consolidation. No pleural effusion or pneumothorax. No acute cardiopulmonary process.
[2024-02-13] MEDS: LACTATED RINGERS 1,000 ML IV ONE (11:49)
[2024-02-13] MEDS: ZOSYN 3.375 GM 3.375 GM in SODIUM CHLORIDE 100ML 100 ML IV ONE (12:17)
[2024-02-13] MEDS: POTASSIUM CHL 10% ORAL SOL PO STA (12:19)
[2024-02-13 13:54] VITALS: BMI 32.9
[2024-02-13] MEDS ORDERED: TYLENOL PO PRN (14:39)
[2024-02-13] MEDS ORDERED: ZOFRAN 4 MG/2 ML IVP PRN (14:39)
--- NOTE | 2024-02-13 14:49 | PCM ---
Date of Service Date Seen by Provider: 02/13/24 Time Seen by Provider: 14:30 Admit Day/Time Admission Date: 02/13/24 Admission Time: 14:39 Reason for Admission Chief Complaint: ACS RULE OUT, SEPSIS Hospital Provider Hospital Provider: JADE MOSS PA-C, [facility] Primary Care Physician Primary Care Physician: TYRA MYERS APRN,[facility] History of Present Illness History of Present Illness: Patient is a 68-year-old female with past medical history of CAD status post 3 stents, chronic kidney disease with an atrophic kidney, obstructive sleep apnea, diabetes, hypothyroidism, hyperlipidemia, GERD, who presents to the ER with chest pain. She describes it as a pressure in her chest. It has been going since yesterday and last for 1 to 2 minutes at a time. She is also under immense stress as her 40 tpimsgjnv-xsqa-gye daughter is currently on hospice. She denies fever, abdominal pain, vomiting, urinary symptoms. She states she has had a mild cough. Chest x-ray was negative. Delta tropes negative. EKG with no significant ST-T changes. She received nitro in the ER and fluids and Zosyn due to meeting sepsis criteria. She was mildly tachycardic and white blood cell count is mildly elevated. Lactic acid elevated as well. She appears nontoxic. Patient admitted to [facility] for ACS rule out and to further workup sepsis. Case Discussed With Case Discussed With: Patient's case was discussed with the ER Physicians, Dr. Stanley. [facility] Medical History CKD (chronic kidney disease) N18.9 - Chronic kidney disease, unspecified (ICD-10) History of renal stone 06/02/19 Right UVJ Z87.442 - Personal history of urinary calculi (ICD-10) Non-Hodgkin lymphoma C85.90 - Non-Hodgkin lymphoma, unspecified, unspecified site (ICD-10) Chest pain R07.9 - Chest pain, unspecified (ICD-10) Myocardial infarction (~2008) Dr. Erwin. Two stents placed I21.9 - Acute myocardial infarction, unspecified (ICD-10) Depression F32.9 - Major depressive disorder, single episode, unspecified (ICD-10) Gout M10.9 - Gout, unspecified (ICD-10) Urinary incontinence R32 - Unspecified urinary incontinence (ICD-10) Chronic arthritis M19.90 - Unspecified osteoarthritis, unspecified site (ICD-10) Surgical History History of renal stent History of removal of calculus of renal pelvis through percutaneous nephrostomy 06/02/[address] Colmenares [facility] Z98.890 - Other specified postprocedural states (ICD-10) Z87.442 - Personal history of urinary calculi (ICD-10) History of cardiac catheterization 01/03/2018; 01/18/18; 03/29/18 Z98.890 - Other specified postprocedural states (ICD-10) History of coronary angioplasty with insertion of stent 01/18/18 L&RHC; X2 stents; 01/03/18 Angioplasty-see sx hx; Dr. Erwin; On ASA daily. Z95.5 - Presence of coronary angioplasty implant and graft (ICD-10) History of neck surgery (08/16/17) Dr. Yu 2002 Z98.890 - Other specified postprocedural states (ICD-10) Status post hysterectomy Total Z90.710 - Acquired absence of both cervix and uterus (ICD-10) Status post cholecystectomy Z90.49 - Acquired absence of other specified parts of digestive tract (ICD- 10) History of section Z98.891 - History of uterine scar from previous surgery (ICD-10) Cataract Bilateral w/ lens implants H26.9 - Unspecified cataract (ICD-10) Family History Mother Gout Cardiac disease Hypertension Mini stroke FATHER Diabetes Cardiac disease Hypertension Social History Smoking and tobacco status: Former smoker Tobacco: How many years used: 25 How long ago did patient quit smoking: one and one half years Alcohol intake: never Substance use type: does not use Household members: spouse Allergies Allergies Allergy/AdvReac Type Severity Reaction Status Date / Time metformin AdvReac Intermediate elevated Verified 02/13/24 10:18 kidney function; diarrhea nifedipine [From Procardia] AdvReac Intermediate rash, Verified 02/13/24 10:18 itching Current Medications Home Medications aspirin 81 mg tablet,delayed release 81 mg PO DAILYWM 07/22/17 [History Confirmed 02/13/24 Last Taken 02/12/24] diabetic supplies, miscellan. #1 ea 11/25/20 [Rx Confirmed 02/13/24 Last Taken Unknown] dulaglutide 3 mg/0.5 mL subcutaneous pen injector (Trulicity) See Rx Instructions .Route .COMPLEX #4 mL 08/14/23 [Rx Confirmed 02/13/24 Last Taken 02/07/24] gabapentin 300 mg capsule See Rx Instructions .Route .COMPLEX #90 caps 08/14/23 [Rx Confirmed 02/13/24 Last Taken 02/12/24] ergocalciferol (vitamin D2) 1,250 mcg (50,000 unit) capsule 50,000 unit PO QWEEK 3 months #14 caps 11/30/23 [Rx Confirmed 02/13/24 Last Taken 02/06/24] fluocinolone 0.01 % scalp oil and shower cap See Rx Instructions topical .COMPLEX #118.28 mL 11/30/23 [Rx Confirmed 02/13/24 Last Taken 02/08/24] metoprolol tartrate 50 mg tablet See Rx Instructions .Route .COMPLEX #60 tabs 11/30/23 [Rx Confirmed 02/13/24 Last Taken 02/12/24] potassium chloride 10 mEq capsule,extended release See Rx Instructions .Route .COMPLEX #60 caps 11/30/23 [Rx Confirmed 02/13/24 Last Taken 02/12/24] rosuvastatin 40 mg tablet See Rx Instructions .Route .COMPLEX #30 ea 11/30/23 [Rx Confirmed 02/13/24 Last Taken 02/12/24] fluticasone propionate 50 mcg/actuation nasal spray,suspension (Allergy Relief (fluticasone)) 2 spray intranasal QDAY #16 grams 12/02/23 [Rx Confirmed 02/13/24 Last Taken 02/12/24] duloxetine 60 mg capsule,delayed release 60 mg PO DAILY #90 ea 01/08/24 [Rx Confirmed 02/13/24 Last Taken 02/12/24] insulin glargine 100 unit/mL (3 mL) subcutaneous pen (Basaglar KwikPen U-100 Insulin) 80 unit (0.8 mL) subcut QPM 1 month #24 mL 01/24/24 [Rx Confirmed 02/13/24 Last Taken 02/12/24 17:00] empagliflozin 25 mg tablet (Jardiance) 25 mg PO QAM #90 tabs 02/06/24 [Rx Confirmed 02/13/24 Last Taken 02/12/24] omeprazole 20 mg capsule,delayed release 20 mg PO DAILY #90 caps 02/08/24 [Rx Confirmed 02/13/24 Last Taken 02/12/24] clobetasol 0.05 % topical ointment 1 applic topical 2XD 02/13/24 [History Confi rmed 02/13/24 Last Taken 02/12/24] levothyroxine 100 mcg tablet 112 mcg PO QDAY 02/13/24 [History Confirmed 02/13/24 Last Taken 02/12/24] losartan 50 mg tablet 25 mg PO DAILY 02/13/24 [History Confirmed 02/13/24 Last Taken 02/12/24] Home Acetaminophen (Acetaminophen 325 Mg Tablet) 650 mg PO Q4H PRN PRN Reason: Mild Pain Aspirin (Aspirin 81 Mg Tablet.) 81 mg PO DAILYWM2 [facility] Duloxetine HCl (Duloxetine Hcl 30 Mg Capsule.) 60 mg PO DAILY [facility] Last Admin: 02/13/24 16:20 Dose: 60 mg Empagliflozin (Empagliflozin 10 Mg Tablet) 25 mg PO QAM [facility] Last Admin: 02/13/24 16:19 Dose: 25 mg Gabapentin (Gabapentin 300 Mg Capsule) 300 mg PO TID [facility] Last Admin: 02/13/24 16:21 Dose: 300 mg Insulin Glargine (Insulin Glargine,Hum.Rec.Anlog 100 Units/Ml) 80 unit SUBCUT QPM [facility] Last Admin: 02/13/24 16:22 Dose: 80 unit Insulin Human Lispro (Insulin Lispro 100 Unit/Ml (10 Ml Vial)) 0 unit SUBCUT PRN PRN; Protocol PRN Reason: Hyperglycemia Levothyroxine Sodium (Levothyroxine Sodium 112 Mcg Tablet) 112 mcg PO QDAC2 [facility] Losartan Potassium (Losartan Potassium 25 Mg Tablet) 25 mg PO DAILY [facility] Last Admin: 02/13/24 16:20 Dose: 25 mg Metoprolol Tartrate (Metoprolol Tartrate 50 Mg Tablet) 50 mg PO BID [facility] Omeprazole (Omeprazole 20 Mg Capsule.) 20 mg PO QDAC2 [facility] Ondansetron HCl (Ondansetron Hcl/Pf 4 Mg/2 Ml Sdv) 4 mg IVP Q6H PRN PRN Reason: Nausea / Vomiting Potassium Chloride (Potassium Chloride 10 Meq Capsule.Er) 10 meq PO BIDWM2 [facility] Rosuvastatin Calcium (Rosuvastatin Calcium 10 Mg Tablet) 40 mg PO DAILY [facility] Discontinued Medications Aspirin (Aspirin 81 Mg Tab.Chew) 324 mg PO ONCE STA Stop: 02/13/24 10:05 Last Admin: 02/13/24 10:23 Dose: 324 mg Lactated Ringer's (Lactated Ringers) 1,000 mls @ 1,000 mls/hr IV BOLUS ONE Stop: 02/13/24 12:28 Last Infusion: 02/13/24 15:40 Dose: Infused Piperacillin Sod/Tazobactam (Sod 3.375 gm/ Sodium Chloride) 100 mls @ 200 mls/hr IV ONCE ONE Stop: 02/13/24 12:06 Last Admin: 02/13/24 12:17 Dose: 200 mls/hr Nitroglycerin (Nitroglycerin 0.4 Mg Tab.Subl) 0.4 mg SL ONCE STA Stop: 02/13/24 10:19 Last Admin: 02/13/24 10:25 Dose: 0.4 mg Potassium Chloride (Potassium Chloride 40 Meq/30 Ml Cup) 20 meq PO ONCE STA Stop: 02/13/24 12:03 Last Admin: 02/13/24 12:19 Dose: 20 meq Opioid Naive vs. Tolerant Does Patient Take Opioids?: No Is Patient Opioid Naive?: Yes What is Opioid Naive?: *Opioid Naive implies the patient is not already taking opioids or not chronically receiving opioids on a daily basis. *PRN dosing is not "usually" associated with tolerance. *Patients are at higher risk of over-sedation and aspiration. Is Patient Opioid Tolerant?: No What is Opioid Tolerant?: *Opioid Tolerance implies less than the expected response to an opioid. *Acquired tolerance is defined by the patient taking 60mg of oral morphine daily (or equianalgesic dose of another opioid) for 1 week or more. *Often associated with chronic pain. *May take more than usual dose to achieve desired pain control. Review of Systems Constitutional: Denies Fever Head: Reports Normocephalic and Atraumatic Cardiovascular: Reports Chest pain and Chest Pressure; Denies Irregular Heartbeat or Edema Respiratory: Reports Cough; Denies Shortness of air Gastrointestinal: Denies Nausea, Vomiting, Diarrhea, Abdominal pain or Melena Genitourinary: Denies Dysuria or Frequency Neurological: Denies Headache, Dizziness or Syncope Psychiatric: Reports Anxiety Physical examination Most Recent Vital Signs: Most Recent Vital Signs Temperature 98.2 F 02/13/24 14:00 Temperature Source Oral 02/13/24 14:00 Temperature Source Infrared 02/13/24 10:03 Pulse Rate 104 H 02/13/24 14:00 Respiratory Rate 18 02/13/24 14:00 Blood Pressure 162/86 H 02/13/24 14:00 Blood Pressure Mean 111 02/13/24 14:00 Blood Pressure Right Arm 162/86 02/13/24 13:32 Blood Pressure Location Left Arm 02/13/24 14:00 Blood Pressure Position Sitting 02/13/24 14:00 O2 Sat by Pulse Oximetry 99 02/13/24 14:00 Oxygen Delivery Method Room Air 02/13/24 14:00 Height 5 ft 1 in 02/13/24 13:32 Weight 79 kg 02/13/24 13:32 Telemetry Type Remote Telemetry 02/13/24 13:00 Telemetry Monitoring Started 02/13/24 13:00 Telemetry Heart Rate 108 H 02/13/24 13:00 EKG UT Interval 0.15 02/13/24 13:00 EKG QRS Interval 0.05 L 02/13/24 13:00 Telemetry Strip Reading SR 02/13/24 13:00 Appearance: Positive No Apparent Distress and Alert and Oriented x3 Skin: Positive [place], Warm, Good Turgor and Good Color; Negative Rashes HEENT: Positive Normocephalic and Atraumatic Neck: Positive Supple and Midline Trachea Chest/Lungs: Positive Clear to Auscultation Bilaterally; Negative Rales, Rhonci or Wheezes Heart: Positive RRR and Murmur GI/: Positive Soft, Nontender, Bowel Sounds Normal and No Distention Extremities: Negative Edema Neurological: Positive Cranial Nerves Intact, Alert, Oriented and Muscle Strength 5/5 in Upper and Lower Extremities Bilaterally Psychiatric: Positive Oriented x4, Appropriate Mood and Appropriate Affect Labs This Visit Labs This Visit: Labs This Visit 02/13/24 02/13/24 02/13/24 10:14 10:15 12:10 WBC 12.48 H RBC 4.66 Hgb 13.7 Hct 42.5 MCV 91.2 MCH 29.4 MCHC 32.2 RDW Coeff of Frandy 14.3 Plt Count 325 Immature Gran % (Auto) 0.3 Neut % (Auto) 79.1 H Lymph % (Auto) 14.4 [place] % (Auto) 4.1 Eos % (Auto) 1.8 Baso % (Auto) 0.3 Neut # (Auto) 9.9 H Lymph # (Auto) 1.8 [place] # (Auto) 0.5 Eos # (Auto) 0.2 Baso # (Auto) 0.0 Immature Gran # (Auto) 0.0 Sodium 139.1 Potassium 3.47 L Chloride 101.1 Carbon Dioxide 23.8 Anion Gap 17.67 BUN 27.2 H Creatinine 1.47 H Estimated GFR (MDRD) 35.00 BUN/Creatinine Ratio 18.50 Glucose 302.2 H Lactic Acid 2.83 H Calcium 9.26 Total Bilirubin 1.72 H AST 32.3 ALT 25.5 Alkaline Phosphatase 148.3 H Troponin I < 0.012 < 0.012 NT-Pro-B Natriuret Pep 1440 H Total Protein 7.53 Albumin 4.33 Globulin 3.20 Albumin/Globulin Ratio 1.35 Influ A Molecular Assay Negative by naat Influ B Molecular Assay Negative by naat SARS CoV-2 RNA Rapid VANDANA Negative Imaging Imaging: EXAM: CHEST, SINGLE VIEW HISTORY: Chest pain COMPARISON: 11/13/2022 IMPRESSION: Cardiomediastinal countours appear stable. There is no focal pulmonary consolidation. No pleural effusion or pneumothorax. No acute cardiopulmonary process. Review Statement Review Statement: I have independently reviewed and interpreted the labs/EKGs/imaging that were ordered by the ER provider. I have reviewed all outside records that are available currently in our EMR including imaging/notes/labs from previous visit s. Plan Plan: 1. Chest pain - Hx of CAD s/p 3 stents. Trend trops and ekg. Pt given asa in ER and takes daily asa. Pt is on a statin as well. 2. Sepsis - Pt tachycardic with elevated lactic and mildly elevated wbc. Received zosyn in ER. CXR neg. UA still uncollected. Will await UA. Repeat lactic. Fluids given in ER. 3. Hypokalemia, mild - Given potassium in ER. 4. Hypertension - Cont home meds 5. Diabetes - Cont home meds, humalog sliding scale, diabetic diet 6. GERD - Cont home meds 7. Anxiety - Could be contributing to her chest pain. DVT Prophylaxis: Ambulation Time Spent: Greater than 80 minutes spent with patient, 50% of the time spent with this patient was devoted to counseling and coordination of care. [facility] Plannin minutes spent discussing advance care planning. Admit to:Obs Discussed Plan of Care with Dr. Lina Wilson. Medications Medication Orders: Medications Ordered Category Date Time Status Acetaminophen [Tylenol] Meds 02/13/24 14:39 Ordered 650 mg PO Q4H PRN Ondansetron HCl/Pf [Zofran 4 mg/2 ml] Meds 02/13/24 14:39 Ordered 4 mg IVP Q6H PRN
[2024-02-13] MEDS ORDERED: SYNTHROID PO SCH (15:00)
[2024-02-13 15:41] LABS: BILIRUBIN,URINE Negative (NEGATIVE); CLARITY,URINE Clear (CLEAR); COLOR,URINE Yellow (YELLOW); GLUCOSE, URINE (UA) 2+ (NEGATIVE); KETONES,URINE Negative (NEGATIVE); LEUKOCYTE ESTERASE ,URINE Negative (NEGATIVE); NITRITE,URINE Negative (NEGATIVE); PH,URINE 5.5 (5-9); PROTEIN,URINE 1+ (NEGATIVE); URINE, BLOOD Negative (NEGATIVE); UROBILINOGEN,URINE 0.2 (0.2)
[2024-02-13 15:43] LABS: SQUAMOUS EPITHELIAL CELL,UR NOT PRESENT (0-5)
[2024-02-13 15:46] LABS: BACTERIA,URINE TRACE (NOT PRESENT); URINE RBC, MICROSCOPIC 0-2 (0-2); YEAST,URINE 2+ (NOT PRESENT)
[2024-02-13] MEDS: JARDIANCE PO SCH (16:19)
[2024-02-13] MEDS: CYMBALTA PO SCH (16:20)
[2024-02-13] MEDS: COZAAR PO SCH (16:20)
[2024-02-13] MEDS: NEURONTIN PO SCH (16:21)
[2024-02-13] MEDS: LANTUS SUBCUT SCH (16:22)
[2024-02-13] MEDS: MICRO-K CAP PO SCH (17:22)
[2024-02-13] MEDS: MAGNESIUM SULF 2 G/50 ML BAG 2 GM/50 ML PIGGYBACK IV ONE (20:38)
[2024-02-13] MEDS: LOPRESSOR PO SCH (20:39)
[2024-02-13] MEDS: HUMALOG (10 ML VIAL) SUBCUT PRN (20:40)
[2024-02-13] MEDS: IMODIUM PO PRN (22:17)
[2024-02-14] MEDS: PRILOSEC PO SCH (05:25)
[2024-02-14 05:26] LABS: BASOPHILS # (AUTO) 0.1 K/uL (0-0.2); BASOPHILS % (AUTO) 0.5 % (0.0-3.0); EOSINOPHILS # (AUTO) 0.2 K/ul (0.0-0.7); EOSINOPHILS % (AUTO) 1.6 % (0.0-7.0); HEMATOCRIT 37.7 % (37.0-47.0); HEMOGLOBIN 12.1 g/dl (12.0-16.0); IMMATURE GRANULOCYTE % (AUTO) 0.4 % (0.0-5.0); LYMPHOCYTES # (AUTO) 2.5 K/uL (0.60-3.4); LYMPHOCYTES % (AUTO) 24.5 (10.0-50.0); MEAN CORPUSCULAR HEMOGLOBIN 29.5 pg (27.0-31.0); MEAN CORPUSCULAR HGB CONC 32.1 (31.8-35.4); MONOCYTES # (AUTO) 0.6 K/uL (0.4-2.0); MONOCYTES % (AUTO) 5.7 (0-10); NEUTROPHILS # (AUTO) 6.7 K/ul (2.0-6.9); NEUTROPHILS % (AUTO) 67.3 % (42.2-75.2); PLATELET COUNT 295 10^3/uL (140-440); RDW COEFFICIENT OF VARIATION 14.4 % (11.6-14.8); WHITE BLOOD COUNT 10.01 K/ul (4.6-10.2)
[2024-02-14] MEDS: SYNTHROID PO SCH (05:26)
[2024-02-14 05:40] LABS: ALANINE AMINOTRANSFERASE 22.9 U/L (0-35); ALBUMIN 3.64 g/dL (3.5-5.0); ALKALINE PHOSPHATASE 124.5 U/L (53-141); ASPARTATE AMINO TRANSFERASE 29.8 U/L (14-36); BILIRUBIN,TOTAL 1.27 mg/dL (0.2-1.3); BLOOD UREA NITROGEN 22.7 mg/dL (7-17); CALCIUM 8.43 mg/dL (8.4-10.2); CARBON DIOXIDE 26.2 mmol/L (22-30.0); CREATININE 1.59 mg/dL (0.60-1.30); GLUCOSE 179.4 mg/dL (74-106); MAGNESIUM 1.85 mg/dL (1.6-2.3); POTASSIUM 3.81 mmol/L (3.5-5.1); TOTAL PROTEIN 6.37 g/dL (6.3-8.2)
[2024-02-14 05:50] LABS: TROPONIN I 0.017 ng/ml (0.0000-0.120)
[2024-02-14] MEDS: CRESTOR PO SCH (08:42)
[2024-02-14] MEDS: ASPIRIN EC PO SCH (08:43)
[2024-02-14] MEDS: MAGNESIUM SULF 2 G/50 ML BAG 2 GM/50 ML PIGGYBACK IV ONE (09:11)
[2024-02-14 10:38] VITALS: BP 157/67; PULSE 74; RESP 16; TEMP 97.8
--- NOTE | 2024-02-14 10:42 | DCSUM ---
Admission Date Admission Date: 02/13/24 Discharge Date Discharge Date: 02/14/24 Admission Diagnosis Admission Diagnosis: 1. Chest pain 2. Sepsis Discharge Diagnosis Discharge Diagnosis: 1. Chest pain - resolved 2. Sepsis - ruled out 3. Hypokalemia, mild - resolved 4. Hypomagnesemia, severe - Replaced 5. Hypertension 6. Diabetes 7. GERD 8. Anxiety due to social factors Hospital Provider Hospital Provider: JADE MOSS PA-C, [facility] Primary Care Physician Primary Care Physician: TYRA MYERS APRN,[facility] Summary of History and Physical Summary of History and Physical: Patient is a 68-year-old female with past medical history of CAD status post 3 stents, chronic kidney disease with an atrophic kidney, obstructive sleep apnea, diabetes, hypothyroidism, hyperlipidemia, GERD, who presents to the ER with chest pain. She describes it as a pressure in her chest. It has been going since yesterday and last for 1 to 2 minutes at a time. She is also under immense stress as her 40 sikyltumg-jkqo-gny daughter is currently on hospice. She denies fever, abdominal pain, vomiting, urinary symptoms. She states she has had a mild cough. Chest x-ray was negative. Delta tropes negative. EKG with no significant ST-T changes. She received nitro in the ER and fluids and Zosyn due to meeting sepsis criteria. She was mildly tachycardic and white blood cell count is mildly elevated. Lactic acid elevated as well. She appears nontoxic. Patient admitted to [facility] for ACS rule out and to further workup sepsis. Hospital Course Subjective: Patient's tropes remain negative. Her chest pain was resolved. Chest x-ray and urine negative. Blood cultures negative x 24 hours. White blood cell count is normal today. Lactic acid normalized. Pro-Calixto has remained normal. No source of infection noted, sepsis is unlikely and has been ruled out. Patient is looking forward to being discharged due to her daughter currently on hospice. She feels this is likely contributing to her chest discomfort. Advised to follow-up with PCP outpatient especially due to her significant cardiac history. Of note her magnesium was very low and she was given 4 g total of magnesium. Advised an [id number] magnesium supplement would be beneficial. Patient agreeable to plan of care. Appearance: Pleasant, No Apparent Distress, Alert and Well-appearing HEENT: MMM and Supple CVS: Other (RRR) Abdomen: Soft, Non-Tender and No Distention Respiratory: No Accessory Muscle Use Extremities: No Edema Vital Signs: Most Recent Vital Signs Temperature 97.8 F 02/14/24 10:00 Temperature Source Temporal Artery Scan 02/14/24 10:00 Temperature Source Infrared 02/13/24 10:03 Pulse Rate 74 02/14/24 10:00 Respiratory Rate 16 02/14/24 10:00 Blood Pressure 157/67 H 02/14/24 10:00 Blood Pressure Mean 97 02/14/24 10:00 Blood Pressure Right Arm 162/86 02/13/24 13:32 Blood Pressure Location Right Arm 02/14/24 10:00 Blood Pressure Position Sitting 02/14/24 10:00 O2 Sat by Pulse Oximetry 96 02/14/24 10:00 Oxygen Delivery Method Room Air 02/14/24 10:00 Height 5 ft 1 in 02/13/24 13:32 Weight 79 kg 02/13/24 13:32 Telemetry Type Remote Telemetry 02/14/24 07:00 Telemetry Monitoring Continues 02/14/24 07:00 Telemetry Heart Rate 68 02/14/24 07:00 EKG IA Interval 0.17 02/14/24 07:00 EKG QRS Interval 0.05 L 02/14/24 07:00 EKG QT Interval 0.07 L 02/13/24 19:00 Telemetry Strip Reading SR 02/14/24 07:00 Imaging: EXAM: CHEST, SINGLE VIEW HISTORY: Chest pain COMPARISON: 11/13/2022 IMPRESSION: Cardiomediastinal countours appear stable. There is no focal pulmonary consolidation. No pleural effusion or pneumothorax. No acute cardiopulmonary process. Lab Results Last 24 Hours: 02/14/24 02/13/24 02/13/24 05:09 21:11 15:30 WBC 10.01 RBC 4.10 L Hgb 12.1 Hct 37.7 MCV 92.0 MCH 29.5 MCHC 32.1 RDW Coeff of Frandy 14.4 Plt Count 295 Immature Gran % (Auto) 0.4 Neut % (Auto) 67.3 Lymph % (Auto) 24.5 [place] % (Auto) 5.7 Eos % (Auto) 1.6 Baso % (Auto) 0.5 Neut # (Auto) 6.7 Lymph # (Auto) 2.5 [place] # (Auto) 0.6 Eos # (Auto) 0.2 Baso # (Auto) 0.1 Immature Gran # (Auto) 0.0 Sodium 139.0 Potassium 3.81 Chloride 104.0 Carbon Dioxide 26.2 Anion Gap 12.61 BUN 22.7 H Creatinine 1.59 H Estimated GFR (MDRD) 32.00 BUN/Creatinine Ratio 14.27 Glucose 179.4 H D Lactic Acid Calcium 8.43 Magnesium 1.85 Total Bilirubin 1.27 AST 29.8 ALT 22.9 Alkaline Phosphatase 124.5 Troponin I 0.017 0.013 NT-Pro-B Natriuret Pep Total Protein 6.37 Albumin 3.64 Globulin 2.73 Albumin/Globulin Ratio 1.33 Procalcitonin Urine Color Yellow Urine Clarity Clear Urine pH 5.5 Ur Specific Dozier 1.015 Urine Protein 1+ H Urine Glucose (UA) 2+ H Urine Ketones Negative Urine Blood Negative Urine Nitrite Negative Urine Bilirubin Negative Urine Urobilinogen 0.2 Ur Leukocyte Esterase Negative Urine Microscopic RBC 0-2 Urine Microscopic WBC 2-5 Ur Squamous Epith Cells Not present Urine Bacteria Trace Urine Yeast 2+ Influ A Molecular Assay Influ B Molecular Assay SARS CoV-2 RNA Rapid VANDANA 02/13/24 02/13/24 02/13/24 15:12 12:10 10:15 WBC RBC Hgb Hct MCV MCH MCHC RDW Coeff of Frandy Plt Count Immature Gran % (Auto) Neut % (Auto) Lymph % (Auto) [place] % (Auto) Eos % (Auto) Baso % (Auto) Neut # (Auto) Lymph # (Auto) [place] # (Auto) Eos # (Auto) Baso # (Auto) Immature Gran # (Auto) Sodium 139.1 Potassium 3.47 L Chloride 101.1 Carbon Dioxide 23.8 Anion Gap 17.67 BUN 27.2 H Creatinine 1.47 H Estimated GFR (MDRD) 35.00 BUN/Creatinine Ratio 18.50 Glucose 302.2 H Lactic Acid 1.24 D 2.83 H Calcium 9.26 Magnesium 1.23 L Total Bilirubin 1.72 H AST 32.3 ALT 25.5 Alkaline Phosphatase 148.3 H Troponin I < 0.012 < 0.012 < 0.012 NT-Pro-B Natriuret Pep 1440 H Total Protein 7.53 Albumin 4.33 Globulin 3.20 Albumin/Globulin Ratio 1.35 Procalcitonin < 0.05 Urine Color Urine Clarity Urine pH Ur Specific Dozier Urine Protein Urine Glucose (UA) Urine Ketones Urine Blood Urine Nitrite Urine Bilirubin Urine Urobilinogen Ur Leukocyte Esterase Urine Microscopic RBC Urine Microscopic WBC Ur Squamous Epith Cells Urine Bacteria Urine Yeast Influ A Molecular Assay Influ B Molecular Assay SARS CoV-2 RNA Rapid VANDANA 02/13/24 10:14 WBC RBC Hgb Hct MCV MCH MCHC RDW Coeff of Frandy Plt Count Immature Gran % (Auto) Neut % (Auto) Lymph % (Auto) [place] % (Auto) Eos % (Auto) Baso % (Auto) Neut # (Auto) Lymph # (Auto) [place] # (Auto) Eos # (Auto) Baso # (Auto) Immature Gran # (Auto) Sodium Potassium Chloride Carbon Dioxide Anion Gap BUN Creatinine Estimated GFR (MDRD) BUN/Creatinine Ratio Glucose Lactic Acid Calcium Magnesium Total Bilirubin AST ALT Alkaline Phosphatase Troponin I NT-Pro-B Natriuret Pep Total Protein Albumin Globulin Albumin/Globulin Ratio Procalcitonin Urine Color Urine Clarity Urine pH Ur Specific Dozier Urine Protein Urine Glucose (UA) Urine Ketones Urine Blood Urine Nitrite Urine Bilirubin Urine Urobilinogen Ur Leukocyte Esterase Urine Microscopic RBC Urine Microscopic WBC Ur Squamous Epith Cells Urine Bacteria Urine Yeast Influ A Molecular Assay Negative by naat Influ B Molecular Assay Negative by naat SARS CoV-2 RNA Rapid VANDANA Negative Discharge Instructions Discharge Planning: Discharge Planning > [address] Lina Wilson. Discharge Medications: Medications at Discharge (Home Meds & RX) Discharge Plan Discharge Discharge Orders: Discharge Patient (ONCE); Ordered 02/14/24 Ordered By: JADE MOSS Activity Restrictions/Additional Instructions: DISCHARGE TO HOME DX: CHEST PAIN, HYPOMAGNESEMIA RECOMMEND MAGNESIUM SUPPLEMENT F/U WITH PCP WITHIN 1 WEEK DIET: HEART HEALTHY, DIABETIC ACTIVITY: TOLERATED Instructions: Chest Pain (ED) Patient Disposition: HOME SELF-CARE Prescriptions: Continued gabapentin 300 mg capsule See Rx Instructions .ROUTE .COMPLEX Qty: 90 5RF Dose Instruction: TAKE 1 CAPSULE BY MOUTH THREE TIMES DAILY Rx Instructions: TAKE 1 CAPSULE BY MOUTH THREE TIMES DAILY Trulicity 3 mg/0.5 mL pen injector See Rx Instructions .ROUTE .COMPLEX Qty: 4 2RF Dose Instruction: INJECT 3 MG SUBCUTANEOUSLY ONCE A WEEK Rx Instructions: INJECT 3 MG SUBCUTANEOUSLY ONCE A WEEK fluticasone propionate [Allergy Relief (fluticasone)] 50 mcg/actuation spray,suspension 2 spray intranasal QDAY Qty: 16 2RF Rx Instructions: administer into each nostril duloxetine 60 mg capsule,delayed release(DR/EC) 60 mg PO DAILY Qty: 90 0RF insulin glargine [Basaglar KwikPen U-100 Insulin] 100 unit/mL (3 mL) insulin pen 80 unit subcut QPM 30 Days Qty: 24 2RF Jardiance 25 mg tablet 25 mg PO QAM Qty: 90 1RF omeprazole 20 mg capsule,delayed release(DR/EC) 20 mg PO DAILY Qty: 90 0RF aspirin 81 MG tablet,delayed release (DR/EC) 81 mg PO DAILYWM clobetasol 0.05 % ointment 1 applic topical 2XD losartan 50 mg tablet 25 mg PO DAILY Rx Instructions: Take 1 tablet by mouth once daily levothyroxine 100 mcg tablet 112 mcg PO QDAY (DME) diabetic supplies, miscellan. Misc See Rx Instructions .ROUTE Qty: 1 0RF Rx Instructions: diabetic shoes with inserts potassium chloride 10 mEq capsule, extended release See Rx Instructions .ROUTE .COMPLEX Qty: 60 2RF Dose Instruction: TAKE 1 CAPSULE BY MOUTH TWICE DAILY FOR 30 DAYS Rx Instructions: TAKE 1 CAPSULE BY MOUTH TWICE DAILY FOR 30 DAYS rosuvastatin 40 mg tablet See Rx Instructions .ROUTE .COMPLEX Qty: 30 2RF Dose Instruction: Take 1 tablet by mouth once daily for 30 days Rx Instructions: Take 1 tablet by mouth once daily for 30 days metoprolol tartrate 50 mg tablet See Rx Instructions .ROUTE .COMPLEX Qty: 60 2RF Dose Instruction: Take 1 tablet by mouth twice daily for 30 days Rx Instructions: Take 1 tablet by mouth twice daily for 30 days fluocinolone and shower cap 0.01 % oil See Rx Instructions topical .COMPLEX Qty: 118.28 5RF Rx Instructions: Apply fluocinolone 0.01% in oil to a wet scalp under a shower cap for one to two hours topical; perform daily for 2 weeks ergocalciferol (vitamin D2) 1,250 mcg (50,000 unit) capsule 50,000 unit PO QWEEK 90 Days Qty: 14 2RF Did you review [place] [employer] for ALL controlled substances?: Not Applicable Discussed opioids are addictive and Narcan is available by prescription or from pharmacy.: No Condition: Stable Referrals: DELMY BENITEZ, CHARLES [PH[employer]IC[employer]] - 02/16/24 9:30 am
== END 2024-02-14 11:55 | disposition home or self-care (01) ==
LOC: ED 09:52 → INTOOBSV 12:55 → MEDSURG B 12:55
PROVIDERS: ADMIT Hospitalist; ATTEND Physician Assistant

== ENCOUNTER 2024-04-22 14:22 | Observation (INO) ==
[2024-04-22 14:33] VITALS: BMI 32.5
[2024-04-22] MEDS: SODIUM CHLORIDE 500 ML IV ONE (15:09)
[2024-04-22 15:15] LABS: SARS COV-2 RNA RAPID NAAT POSITIVE (NEGATIVE)
[2024-04-22 15:22] LABS: MOLECULAR FLU A NEGATIVE BY NAAT (NEGATIVE); MOLECULAR FLU B NEGATIVE BY NAAT (NEGATIVE); RSV MOLECULAR NEGATIVE BY NAAT (NEGATIVE)
--- NOTE | 2024-04-22 15:26 | DI ---
EXAM: CHEST RADIOGRAPH TECHNIQUE: Single frontal chest radiograph. HISTORY: Cough and fever COMPARISON: 02/13/2024 FINDINGS: The lungs are clear without focal consolidation. No pleural effusion or pneumothorax. The cardiomed iastinal silhouette, mariposa and pulmonary vascular markings are within normal limits. No acute osseous abnormality. IMPRESSION: 1. No acute cardiopulmonary process.
[2024-04-22 15:32] LABS: BASOPHILS # (AUTO) 0.1 K/uL (0-0.2); BASOPHILS % (AUTO) 0.4 % (0.0-3.0); EOSINOPHILS # (AUTO) 0.1 K/ul (0.0-0.7); EOSINOPHILS % (AUTO) 0.7 % (0.0-7.0); HEMATOCRIT 42.1 % (37.0-47.0); HEMOGLOBIN 13.5 g/dl (12.0-16.0); IMMATURE GRANULOCYTE # (AUTO) 0.1 (0.0-1.0); IMMATURE GRANULOCYTE % (AUTO) 0.4 % (0.0-5.0); LYMPHOCYTES # (AUTO) 0.9 K/uL (0.60-3.4); LYMPHOCYTES % (AUTO) 7.4 (10.0-50.0); MEAN CORPUSCULAR HEMOGLOBIN 29.2 pg (27.0-31.0); MEAN CORPUSCULAR HGB CONC 32.1 (31.8-35.4); MEAN CORPUSCULAR VOLUME 91.1 fl (81.0-99.0); MONOCYTES # (AUTO) 1.1 K/uL (0.4-2.0); MONOCYTES % (AUTO) 8.7 (0-10); NEUTROPHILS # (AUTO) 10.2 K/ul (2.0-6.9); NEUTROPHILS % (AUTO) 82.4 % (42.2-75.2); PLATELET COUNT 258 10^3/uL (140-440); RDW COEFFICIENT OF VARIATION 13.4 % (11.6-14.8); RED BLOOD COUNT 4.62 10^6/ul (4.20-5.40); WHITE BLOOD COUNT 12.36 K/ul (4.6-10.2)
[2024-04-22 15:44] LABS: ALANINE AMINOTRANSFERASE 28.1 U/L (0-35); ALBUMIN 4.67 g/dL (3.5-5.0); ALKALINE PHOSPHATASE 144.5 U/L (53-141); ASPARTATE AMINO TRANSFERASE 33.2 U/L (14-36); BILIRUBIN,TOTAL 2.79 mg/dL (0.2-1.3); BLOOD UREA NITROGEN 21.9 mg/dL (7-17); CALCIUM 9.67 mg/dL (8.4-10.2); CARBON DIOXIDE 26.6 mmol/L (22-30.0); CHLORIDE 97.3 mmol/L (98-107); CREATININE 2.13 mg/dL (0.60-1.30); GLUCOSE 157.7 mg/dL (74-106); POTASSIUM 4.5 mmol/L (3.5-5.1); SODIUM 135.9 mmol/L (134.5-145); TOTAL PROTEIN 8.53 g/dL (6.3-8.2)
--- NOTE | 2024-04-22 15:52 | ED.PDOC ---
General ED Provider: Dr. DWIGHT RODRIGUEZ MD Chief Complaint: Cough Stated Complaint: 69 yo WF with coughing for 2 days, slightly productive of sputum. some fever and chills. Bad headaches. Some sore throat. No chest pain. No vomiting or diarrhea. No urinary sx. Her had the Flu this week. she had the flu vaccine. Hx of CAD and 3 stents, last one 2014. Negative stress test about 2-3 years ago. No history of CHF or COPD. Doesn't smoke Time Seen by Provider: 04/22/24 14:52 Mode of Arrival: Walk-In Information Source: Patient Exam Limitations: No limitations Primary Care Provider: TYRA MYERS APRN, FNPBC Referred to ED by: Other (self) Nursing and Triage Documentation Reviewed and Agree: Yes Does Patient Take Opioids?: No What is Opioid Naive?: *Opioid Naive implies the patient is not already taking opioids or not chronically receiving opioids on a daily basis. *PRN dosing is not "usually" associated with tolerance. *Patients are at higher risk of over-sedation and aspiration. What is Opioid Tolerant?: *Opioid Tolerance implies less than the expected response to an opioid. *Acquired tolerance is defined by the patient taking 60mg of oral morphine daily (or equianalgesic dose of another opioid) for 1 week or more. *Often associated with chronic pain. *May take more than usual dose to achieve desired pain control. Review of Systems Review Of Systems Constitutional: Reports Chills, Fever and Weakness Eyes: Reports No symptoms Ears, Nose, Mouth, Throat: Reports Nose discharge; Denies Ear pain, Ear discharge or Throat pain Respiratory: Reports Cough and Shortness of Breath Cardiac: Denies Chest pain or Edema GI: Denies Abdominal pain, Diarrhea or Vomiting : Reports No symptoms Musculoskeletal: Denies Joint swelling, Muscle pain or Neck pain Skin: Reports No symptoms Neurological: Reports Headache; Denies Cognitive dysfunction [facility] Medical History CKD (chronic kidney disease) N18.9 - Chronic kidney disease, unspecified (ICD-10) History of renal stone 06/02/19 Right [facility]J Z87.442 - Personal history of urinary calculi (ICD-10) Non-Hodgkin lymphoma C85.90 - Non-Hodgkin lymphoma, unspecified, unspecified site (ICD-10) Chest pain R07.9 - Chest pain, unspecified (ICD-10) Myocardial infarction (~2008) Dr. Erwin. Two stents placed I21.9 - Acute myocardial infarction, unspecified (ICD-10) Depression F32.9 - Major depressive disorder, single episode, unspecified (ICD-10) Gout M10.9 - Gout, unspecified (ICD-10) Urinary incontinence R32 - Unspecified urinary incontinence (ICD-10) Chronic arthritis M19.90 - Unspecified osteoarthritis, unspecified site (ICD-10) Family History Mother Gout Cardiac disease Hypertension Mini stroke FATHER Diabetes Cardiac disease Hypertension Social History Smoking and tobacco status: Former smoker Tobacco: How many years used: 25 How long ago did patient quit smoking: one and one half years Alcohol intake: never Substance use type: does not use Household members: spouse Surgical History History of renal stent History of removal of calculus of renal pelvis through percutaneous nephrostomy 06/02/[address] Colmenares [facility] Z98.890 - Other specified postprocedural states (ICD-10) Z87.442 - Personal history of urinary calculi (ICD-10) History of cardiac catheterization 01/03/2018; 01/18/18; 03/29/18 Z98.890 - Other specified postprocedural states (ICD-10) History of coronary angioplasty with insertion of stent 01/18/18 L&RHC; X2 stents; 01/03/18 Angioplasty-see sx hx; Dr. Erwin; On ASA daily. Z95.5 - Presence of coronary angioplasty implant and graft (ICD-10) History of neck surgery (08/16/17) Dr. Yu 2002 Z98.890 - Other specified postprocedural states (ICD-10) Status post hysterectomy Total Z90.710 - Acquired absence of both cervix and uterus (ICD-10) Status post cholecystectomy Z90.49 - Acquired absence of other specified parts of digestive tract (ICD- 10) History of section Z98.891 - History of uterine scar from previous surgery (ICD-10) Cataract Bilateral w/ lens implants H26.9 - Unspecified cataract (ICD-10) Female Reproductive History Menstrual Hx Hysterectomy: Yes (1980) Hx Tubal Ligation: No Physical Exam Physical Exam Appearance: Reports No pain distress and Well-nourished Ill-appearing: Mild Pain Distress: None Eyes: Reports EOMI ENT: Reports Nose normal and Oropharynx normal Neck: Supple Respiratory: Reports Airway patent, Breath sounds clear and Breath sounds equal; Denies Breath sounds diminished, Respirations nonlabored, Wheezes or Retractions Cardiovascular: Reports RRR, Pulses normal, No rub and Tachycardia GI/: Reports Soft, Nontender, No masses, Bowel sounds normal and No Organomegaly; Denies Tender Musculoskeletal: Reports Normal strength, ROM intact, No edema and No calf tenderness Skin: Reports Warm, Dry, Normal color, Pale and Diaphoretic Neurological: Reports Sensation intact, Motor intact, Alert and Oriented Psychiatric: Reports Affect appropriate and Mood appropriate Interpretation EKG Interpretation EKG Interpretation By: ED Physician Time of EKG #1: 15:30 Rate: Tachy Rhythm: Sinus Ectopy: None Ellerbe: NL ST Segment: Other (non-specific) Interpretation: Sinus Tach, Leftward axis, LVH with Strain, Abnormal EKG Course Course 04/22/24 15:17 04/22/24 15:17 Orders, Labs, Meds: Lab Review 04/22/24 04/22/24 04/22/24 14:45 15:17 15:48 WBC 12.36 H RBC 4.62 Hgb 13.5 Hct 42.1 MCV 91.1 MCH 29.2 MCHC 32.1 RDW Coeff of Frandy 13.4 Plt Count 258 Immature Gran % (Auto) 0.4 Neut % (Auto) 82.4 H Lymph % (Auto) 7.4 L [place] % (Auto) 8.7 Eos % (Auto) 0.7 Baso % (Auto) 0.4 Neut # (Auto) 10.2 H Lymph # (Auto) 0.9 [place] # (Auto) 1.1 Eos # (Auto) 0.1 Baso # (Auto) 0.1 Immature Gran # (Auto) 0.1 Sodium 135.9 Potassium 4.50 Chloride 97.3 L Carbon Dioxide 26.6 Anion Gap 16.50 BUN 21.9 H Creatinine 2.13 H Estimated GFR (MDRD) 23.00 BUN/Creatinine Ratio 10.28 Glucose 157.7 H Lactic Acid 1.66 Calcium 9.67 Total Bilirubin 2.79 H AST 33.2 ALT 28.1 Alkaline Phosphatase 144.5 H Total Protein 8.53 H Albumin 4.67 Globulin 3.86 Albumin/Globulin Ratio 1.20 Procalcitonin 0.31 H D-Dimer 1221.46 H Urine Color Yellow Urine Clarity Clear Urine pH 6.0 Ur Specific [place] 1.020 Urine Protein 2+ H Urine Glucose (UA) 3+ H Urine Ketones Negative Urine Blood Trace-intact H Urine Nitrite Negative Urine Bilirubin Negative Urine Urobilinogen 1.0 H Ur Leukocyte Esterase Negative Urine Microscopic RBC 5-10 Urine Microscopic WBC 0-2 Ur Squamous Epith Cells 5-10 Ur Renal Epithelial Cell 2-5 Triple Phos Crystals Trace Urine Bacteria Trace Urine Mucus Trace Urine Yeast 3+ Influ A Molecular Assay Negative by naat Influ B Molecular Assay Negative by naat RSV Antigen Negative by naat SARS CoV-2 RNA Rapid VANDANA Positive H Orders Category Date Time Status ADMIT OBSERVATION [PLACE PATIENT OBSERVATION] .TO ADMISSION 04/22/24 17:24 Active MEDSURG (MONITORED BED) EKG-(ED ONLY) Stat CARDIO 04/22/24 15:16 Completed TELEMETRY MONITORING TELE CARE 04/22/24 17:24 Active Saline Lock [ED IV/MEDIPORT/POWERPORT] .ONCE EMERGENCY 04/22/24 14:53 Active BLOOD CULTURE (ED ONLY) Stat LAB 04/22/24 15:17 Received CBC W/ AUTO DIFF Stat LAB 04/22/24 15:17 Completed CMP [COMPREHENSIVE METABOLIC PANEL] Stat LAB 04/22/24 15:17 Completed COVID [SARS COV-2 RNA RAPID VANDANA] Stat LAB 04/22/24 14:45 Completed D-DIMER Stat LAB 04/22/24 15:17 Completed FLU A & B MOLECULAR [FLU A/B MOLECULAR] Stat LAB 04/22/24 14:45 Completed LACTIC ACID Stat LAB 04/22/24 15:17 Completed PROCALCITONIN Stat LAB 04/22/24 15:17 Completed RSV Stat LAB 04/22/24 14:45 Completed URINALYSIS C & S IF INDICATED Stat LAB 04/22/24 15:48 Completed 0.9 % Sodium Chloride [Saline Flush] Meds 04/22/24 14:53 Active 1 syr IVF PRN PRN Acetaminophen [Tylenol] Meds 04/22/24 17:00 Discontinued 1,000 mg PO ONCE ONE Enoxaparin Sodium [Lovenox] Meds 04/22/24 17:30 Discontinued 80 mg SUBCUT ONCE ONE Sodium Chloride 0.9% [Sodium Chloride] 1,000 ml Meds 04/22/24 16:31 Discontinued IV BOLUS Sodium Chloride 0.9% [Sodium Chloride] 500 ml Meds 04/22/24 14:54 Discontinued IV 125 mls/hr CHEST, 1V AP ONLY Stat RADS 04/22/24 14:53 Completed Medications Generic Name Dose Route Start Last Admin Trade Name Freq PRN Reason Stop Dose Admin Acetaminophen 650 mg 04/22/24 17:48 Acetaminophen 325 Mg Tablet PO Q4H PRN Mild Pain Lactated Ringer's 1,000 mls @ 75 mls/hr 04/22/24 18:00 Lactated Ringers IV .[id number] SUSANA Ondansetron HCl 4 mg 04/22/24 17:48 Ondansetron Hcl/Pf 4 Mg/2 Ml Sdv IVP Q6H PRN Nausea / Vomiting Sodium Chloride 1 syr 04/22/24 14:53 04/22/24 15:09 0.9% Sodium Chloride 10 Ml Disp.Syrin IVF 1 syr PRN PRN Administration To flush IV Discontinued Medications Generic Name Dose Route Start Last Admin Trade Name Freq PRN Reason Stop Dose Admin Acetaminophen 1,000 mg 04/22/24 17:00 04/22/24 16:53 Acetaminophen 500 Mg Tablet PO 04/22/24 17:01 1,000 mg ONCE ONE Administration Enoxaparin Sodium 80 mg 04/22/24 17:30 04/22/24 17:40 Enoxaparin Sodium 100 Mg/Ml Syr SUBCUT 04/22/24 17:31 80 mg ONCE ONE Administration Sodium Chloride 500 mls @ 125 mls/hr 04/22/24 14:54 04/22/24 16:38 Sodium Chloride IV 04/22/24 18:53 Infused .Q4H ONE Infusion Sodium Chloride 1,000 mls @ 1,000 mls/hr 04/22/24 16:31 04/22/24 17:43 Sodium Chloride IV 04/22/24 17:30 Infused BOLUS ONE Infusion Vital Signs: Temp Pulse Resp BP Pulse Ox 04/22/24 16:45 101.7 F H 04/22/24 14:26 101.3 F H 142 H 20 114/75 98 Discharge Plan Discharge Patient Disposition: PLACED OBSERVATION Discharge Problem: COVID-19, Acute kidney injury Did you review [place] [employer] for ALL controlled substances?: Not Applicable ED Provider: DWIGHT RODRIGUEZ Condition: Fair Physician Progress Note: Despite some IV fluid bolus, still tachycardic. Her BUN/Cr noted when compared to previous. Due to her being COVID, D-Dimer order to be sure not PE. Because of her renal function, will need to admit for IV hydration and to rule out PE
[2024-04-22 15:57] LABS: BILIRUBIN,URINE Negative (NEGATIVE); CLARITY,URINE Clear (CLEAR); COLOR,URINE Yellow (YELLOW); GLUCOSE, URINE (UA) 3+ (NEGATIVE); KETONES,URINE Negative (NEGATIVE); LEUKOCYTE ESTERASE ,URINE Negative (NEGATIVE); NITRITE,URINE Negative (NEGATIVE); PROTEIN,URINE 2+ (NEGATIVE); URINE, BLOOD Trace-intact (NEGATIVE)
[2024-04-22 16:08] LABS: BACTERIA,URINE TRACE (NOT PRESENT); MUCUS,URINE TRACE (NOT PRESENT); TRIPLE PHOSPHATE CRYSTAL,UR TRACE (NOT PRESENT); URINE WBC, MICROSCOPIC 0-2 (0-2); YEAST,URINE 3+ (NOT PRESENT)
[2024-04-22] MEDS: SODIUM CHLORIDE 1,000 ML IV ONE (16:37)
[2024-04-22] MEDS ORDERED: TYLENOL PO ONE (16:43)
[2024-04-22] MEDS: TYLENOL PO ONE (16:53)
[2024-04-22] MEDS ORDERED: LOVENOX SUBCUT STA (17:20)
[2024-04-22] MEDS: LOVENOX SUBCUT ONE (17:40)
[2024-04-22] MEDS ORDERED: ZOFRAN SDV IVP PRN (17:48)
[2024-04-22] MEDS: MOTRIN PO ONE (18:18)
[2024-04-22] MEDS: LACTATED RINGERS 1,000 ML IV SCH (19:37)
[2024-04-22] MEDS ORDERED: COZAAR PO SCH (20:30)
[2024-04-22] MEDS: CYMBALTA PO SCH (20:48)
[2024-04-22] MEDS: NEURONTIN PO SCH (20:48)
[2024-04-22] MEDS: CRESTOR PO SCH (20:49)
[2024-04-22] MEDS: LOPRESSOR PO SCH (20:49)
[2024-04-23] MEDS: TYLENOL PO PRN (01:30)
[2024-04-23] MEDS: SYNTHROID PO SCH (05:10)
[2024-04-23] MEDS: PRILOSEC PO SCH (05:10)
[2024-04-23 05:18] LABS: BASOPHILS % (AUTO) 0.4 % (0.0-3.0); EOSINOPHILS % (AUTO) 0.4 % (0.0-7.0); HEMATOCRIT 35.5 % (37.0-47.0); HEMOGLOBIN 11.1 g/dl (12.0-16.0); IMMATURE GRANULOCYTE % (AUTO) 0.5 % (0.0-5.0); LYMPHOCYTES # (AUTO) 1.3 K/uL (0.60-3.4); MEAN CORPUSCULAR HEMOGLOBIN 29.3 pg (27.0-31.0); MEAN CORPUSCULAR HGB CONC 31.3 (31.8-35.4); MEAN CORPUSCULAR VOLUME 93.7 fl (81.0-99.0); MONOCYTES # (AUTO) 1.1 K/uL (0.4-2.0); MONOCYTES % (AUTO) 12.8 (0-10); NEUTROPHILS # (AUTO) 5.9 K/ul (2.0-6.9); NEUTROPHILS % (AUTO) 69.9 % (42.2-75.2); PLATELET COUNT 206 10^3/uL (140-440); RDW COEFFICIENT OF VARIATION 13.8 % (11.6-14.8); RED BLOOD COUNT 3.79 10^6/ul (4.20-5.40); WHITE BLOOD COUNT 8.39 K/ul (4.6-10.2)
[2024-04-23 05:32] LABS: ALBUMIN 3.63 g/dL (3.5-5.0); ALKALINE PHOSPHATASE 110.2 U/L (53-141); ASPARTATE AMINO TRANSFERASE 33.6 U/L (14-36); BILIRUBIN,TOTAL 1.65 mg/dL (0.2-1.3); BLOOD UREA NITROGEN 23.7 mg/dL (7-17); CALCIUM 8.57 mg/dL (8.4-10.2); CARBON DIOXIDE 27.1 mmol/L (22-30.0); CHLORIDE 102.3 mmol/L (98-107); CREATININE 1.98 mg/dL (0.60-1.30); GLUCOSE 103.8 mg/dL (74-106); POTASSIUM 3.72 mmol/L (3.5-5.1); SODIUM 136.6 mmol/L (134.5-145); TOTAL PROTEIN 6.76 g/dL (6.3-8.2)
[2024-04-23] MEDS: ASPIRIN EC PO SCH (08:56)
[2024-04-23] MEDS: JARDIANCE PO SCH (08:58)
[2024-04-23 10:18] LABS: PROTHROMBIN TIME 11.6 SEC (9.3-11.0)
[2024-04-23] MEDS: MAGNESIUM SULF 2 G/50 ML BAG 2 GM/50 ML PIGGYBACK IV ONE ×2 (10:34→17:05)
--- NOTE | 2024-04-23 11:27 | PCM.SS ---
Provider Provider: JADE MOSS PA-C, [facility] Admission Date Admission Date: 04/22/24 Discharge Date Discharge Date: 04/23/24 Primary Care Physician Primary Care Physician: TYRA MYERS APRN,[facility] Chief Complaint Reason For Visit: COVID POSITIVE History of Present Illness History of Present Illness: Admitted 04/22/24 17:30, this 69 year old /WHITE/F with pmhx of diabetes, hypertension, gerd, hyperlipidemia, hypothyroidism, CKD who presents for sob and fever. Her has had the "flu" lately. She started with symptoms 4 days ago, has just "felt terrible." In the ER she was covid positive. CXR negative. Lactic normal but procal mildly high. She was running a >101T and HR was 140s. It remained elevated after fluids and tylenol. Ddimer elevated but unable to do CTA due to her CKD. She was 98% on RA. Admitted to med surg. Patient required 2L overnight due to not having her CPAP but has otherwise been on RA. Her fever broke last night and therefore her HR normalized as well. This morning her vitals are normal. She is feeling better. She remains on RA. Discussed a VQ scan however we do not have NM available today due to the holiday. However we also discussed her HR was likely elevated due to dehydration and fever and with correction of those factors her HR is normal today. Wells score is low risk. No signs of DVT. No hypotension, hypoxia noted. Regarding her covid, she is within window for treatment. We initially discussed paxlovid however her GFR is below the cut off for dosing. We discussed no treatment vs also remdesivir outpatient for 3 days. She opted to do remdesivir, we will complete first dose here today and she will come back the following two days outpatient. Also her magnesium is very low again. Looking back she has had severe hypomagnesemia for past year at least. She received 4gm of mag the last hospitalization and it improved to 1.8, but at recheck with pcp it was 1.5. She has been taking an otc mag supplement. Will give mag IV today and recommended doubling her mag supplement dose in frequent smaller doses. F/u with pcp for recheck on this. Red flags on when to return to the ER discussed. [facility] Medical History CKD (chronic kidney disease) N18.9 - Chronic kidney disease, unspecified (ICD-10) History of renal stone 06/02/19 Right [facility]J Z87.442 - Personal history of urinary calculi (ICD-10) Non-Hodgkin lymphoma C85.90 - Non-Hodgkin lymphoma, unspecified, unspecified site (ICD-10) Chest pain R07.9 - Chest pain, unspecified (ICD-10) Myocardial infarction (~2008) Dr. Erwin. Two stents placed I21.9 - Acute myocardial infarction, unspecified (ICD-10) Depression F32.9 - Major depressive disorder, single episode, unspecified (ICD-10) Gout M10.9 - Gout, unspecified (ICD-10) Urinary incontinence R32 - Unspecified urinary incontinence (ICD-10) Chronic arthritis M19.90 - Unspecified osteoarthritis, unspecified site (ICD-10) Surgical History History of renal stent History of removal of calculus of renal pelvis through percutaneous nephrostomy 06/02/[address] Colmenares [facility] Z98.890 - Other specified postprocedural states (ICD-10) Z87.442 - Personal history of urinary calculi (ICD-10) History of cardiac catheterization 01/03/2018; 01/18/18; 03/29/18 Z98.890 - Other specified postprocedural states (ICD-10) History of coronary angioplasty with insertion of stent 01/18/18 L&RHC; X2 stents; 01/03/18 Angioplasty-see sx hx; Dr. Erwin; On ASA daily. Z95.5 - Presence of coronary angioplasty implant and graft (ICD-10) History of neck surgery (08/16/17) Dr. Yu 2002 Z98.890 - Other specified postprocedural states (ICD-10) Status post hysterectomy Total Z90.710 - Acquired absence of both cervix and uterus (ICD-10) Status post cholecystectomy Z90.49 - Acquired absence of other specified parts of digestive tract (ICD- 10) History of section Z98.891 - History of uterine scar from previous surgery (ICD-10) Cataract Bilateral w/ lens implants H26.9 - Unspecified cataract (ICD-10) Family History Mother Gout Cardiac disease Hypertension Mini stroke FATHER Diabetes Cardiac disease Hypertension Social History Smoking and tobacco status: Former smoker Tobacco: How many years used: 25 How long ago did patient quit smoking: one and one half years Alcohol intake: never Substance use type: does not use Household members: spouse Medications Mecications: Medications at Discharge (Home Meds & RX) aspirin 81 mg tablet,delayed release 81 mg PO DAILYWM 07/22/17 diabetic supplies, miscellan. #1 ea 11/25/20 dulaglutide 3 mg/0.5 mL subcutaneous pen injector ([facility]) See Rx Instructions .Route .COMPLEX #4 mL 08/14/23 ergocalciferol (vitamin D2) 1,250 mcg (50,000 unit) capsule 50,000 unit PO QWEEK 3 months #14 caps 11/30/23 fluocinolone 0.01 % scalp oil and shower cap See Rx Instructions topical .COMPLEX #118.28 mL 11/30/23 fluticasone propionate 50 mcg/actuation nasal spray,suspension (Allergy Relief (fluticasone)) 2 spray intranasal QDAY #16 grams 12/02/23 empagliflozin 25 mg tablet (Jardiance) 25 mg PO QAM #90 tabs 02/06/24 omeprazole 20 mg capsule,delayed release 20 mg PO DAILY #90 caps 02/08/24 clobetasol 0.05 % topical ointment 1 applic topical 2XD 02/13/24 levothyroxine 100 mcg tablet 112 mcg PO QDAY 02/13/24 losartan 50 mg tablet 50 mg PO QDAY #90 tabs 02/20/24 magnesium 250 mg tablet 500 mg (2 x 250 mg) PO QDAY taking otc #30 tabs 02/20/24 metoprolol tartrate 50 mg tablet See Rx Instructions .Route .COMPLEX #60 tabs 02/20/24 potassium chloride 10 mEq capsule,extended release See Rx Instructions .Route .COMPLEX #60 caps 02/20/24 rosuvastatin 40 mg tablet 40 mg PO DAILY #90 ea 02/25/24 insulin glargine 100 unit/mL (3 mL) subcutaneous pen (Basaglar KwikPen U-100 Insulin) 80 unit (0.8 mL) subcut QPM 1 month #24 mL 04/02/24 duloxetine 60 mg capsule,delayed release 60 mg PO DAILY #90 ea 04/09/24 gabapentin 300 mg capsule 300 mg PO 3XD #90 caps 04/10/24 Allergies Allergies Allergy/AdvReac Type Severity Reaction Status Date / Time metformin AdvReac Intermediate elevated Verified 04/22/24 14:33 kidney function; diarrhea nifedipine (From Procardia) AdvReac Intermediate rash, Verified 04/22/24 14:33 itching Review of Systems Constitutional: Reports Fever, Fatigue and Weakness Head: Reports Normocephalic and Atraumatic Cardiovascular: Denies Chest pain or Edema Respiratory: Reports Cough and Shortness of air Gastrointestinal: Denies Nausea, Vomiting, Diarrhea, Abdominal pain or Melena Genitourinary: Denies Dysuria or Frequency Dermatologic: Denies Rashes Neurological: Reports Headache; Denies Dizziness or Syncope Physical Examination Appearance: Positive No Apparent Distress and Alert and Oriented x3 Head: Positive Normocephalic and Atraumatic Eyes: Positive JUNI Neck: Positive Supple and Trachea Midline Heart: Positive RRR; Negative No Murmurs (+4/6 murmur) Respiratory: Positive Breath Sounds Clear, Bilaterally and Respirations Nonlabored; Negative Crackles, Rhonchi, Wheezes or Retractions GI/: Positive Soft, Nontender and Bowel sounds normal Extremities: Positive Pedal Pulses Palpable Bilaterally; Negative Edema Neurological: Positive Cranial nerves intact, Alert and Oriented Psychiatric: Positive Normal Judgement, Normal Insight, Affect Appropriate and Mood Appropriate Vital Signs (Last 4 Hours) Vital Signs Last 4 Hours: Vital Signs: Last 4 Hours 04/23/24 07:00 04/23/24 07:00 Oxygen Delivery Method Room Air Telemetry Type Bedside Monitor Telemetry Monitoring Continues Telemetry Heart Rate 91 Telemetry SPO2 [address] Interval 0.17 EKG QRS Interval 0.07 Telemetry Strip Reading SR Labs This Visit Labs This Visit: Labs This Visit 04/22/24 04/22/24 04/22/24 14:45 15:17 15:48 WBC 12.36 H RBC 4.62 Hgb 13.5 Hct 42.1 MCV 91.1 MCH 29.2 MCHC 32.1 RDW Coeff of Frandy 13.4 Plt Count 258 Immature Gran % (Auto) 0.4 Neut % (Auto) 82.4 H Lymph % (Auto) 7.4 L Reeves % (Auto) 8.7 Eos % (Auto) 0.7 Baso % (Auto) 0.4 Neut # (Auto) 10.2 H Lymph # (Auto) 0.9 Reeves # (Auto) 1.1 Eos # (Auto) 0.1 Baso # (Auto) 0.1 Immature Gran # (Auto) 0.1 Sodium 135.9 Potassium 4.50 Chloride 97.3 L Carbon Dioxide 26.6 Anion Gap 16.50 BUN 21.9 H Creatinine 2.13 H Estimated GFR (MDRD) 23.00 BUN/Creatinine Ratio 10.28 Glucose 157.7 H Lactic Acid 1.66 Calcium 9.67 Magnesium Total Bilirubin 2.79 H AST 33.2 ALT 28.1 Alkaline Phosphatase 144.5 H Total Protein 8.53 H Albumin 4.67 Globulin 3.86 Albumin/Globulin Ratio 1.20 Procalcitonin 0.31 H D-Dimer 1221.46 H Urine Color Yellow Urine Clarity Clear Urine pH 6.0 Ur Specific [place] 1.020 Urine Protein 2+ H Urine Glucose (UA) 3+ H Urine Ketones Negative Urine Blood Trace-intact H Urine Nitrite Negative Urine Bilirubin Negative Urine Urobilinogen 1.0 H Ur Leukocyte Esterase Negative Urine Microscopic RBC 5-10 Urine Microscopic WBC 0-2 Ur Squamous Epith Cells 5-10 Ur Renal Epithelial Cell 2-5 Triple Phos Crystals Trace Urine Bacteria Trace Urine Mucus Trace Urine Yeast 3+ Influ A Molecular Assay Negative by naat Influ B Molecular Assay Negative by naat RSV Antigen Negative by naat SARS CoV-2 RNA Rapid VANDANA Positive H 04/23/24 05:13 WBC 8.39 RBC 3.79 L Hgb 11.1 L Hct 35.5 L D MCV 93.7 MCH 29.3 MCHC 31.3 L RDW Coeff of Frandy 13.8 Plt Count 206 Immature Gran % (Auto) 0.5 Neut % (Auto) 69.9 Lymph % (Auto) 16.0 Reeves % (Auto) 12.8 H Eos % (Auto) 0.4 Baso % (Auto) 0.4 Neut # (Auto) 5.9 Lymph # (Auto) 1.3 Reeves # (Auto) 1.1 Eos # (Auto) 0.0 Baso # (Auto) 0.0 Immature Gran # (Auto) 0.0 Sodium 136.6 Potassium 3.72 Chloride 102.3 Carbon Dioxide 27.1 Anion Gap 10.92 BUN 23.7 H Creatinine 1.98 H Estimated GFR (MDRD) 25.00 BUN/Creatinine Ratio 11.96 Glucose 103.8 D Lactic Acid Calcium 8.57 Magnesium 1.28 L Total Bilirubin 1.65 H AST 33.6 ALT 22.0 Alkaline Phosphatase 110.2 D Total Protein 6.76 Albumin 3.63 Globulin 3.13 Albumin/Globulin Ratio 1.15 Procalcitonin D-Dimer Urine Color Urine Clarity Urine pH Ur Specific [place] Urine Protein Urine Glucose (UA) Urine Ketones Urine Blood Urine Nitrite Urine Bilirubin Urine Urobilinogen Ur Leukocyte Esterase Urine Microscopic RBC Urine Microscopic WBC Ur Squamous Epith Cells Ur Renal Epithelial Cell Triple Phos Crystals Urine Bacteria Urine Mucus Urine Yeast Influ A Molecular Assay Influ B Molecular Assay RSV Antigen SARS CoV-2 RNA Rapid VANDANA Imaging Imaging: EXAM: CHEST RADIOGRAPH TECHNIQUE: Single frontal chest radiograph. HISTORY: Cough and fever COMPARISON: 02/13/2024 FINDINGS: The lungs are clear without focal consolidation. No pleural effusion or pneumothorax. The cardiomediastinal silhouette, mariposa and pulmonary vascular markings are within normal limits. No acute osseous abnormality. IMPRESSION: 1. No acute cardiopulmonary process. Review Review Statement: I have independently reviewed and interpreted the labs/EKGs/imaging that were ordered by the ER provider. I have reviewed all outside records that are available currently in our EMR including imaging/notes/labs from previous visits. Plan Reccomendations/Plan: 1. Covid 19 - patient with fever and sinus tach in the ER despite fluids and tylenol. Supportive measures. 2. Sinus tach - Resolved with breaking of fever. HR is normal since late last night. 3. Elevated d dimer - Likely due to acute covid. Wells criteria low risk. Unable to CTA due to renal function. Unable to do VQ due to no NM available with holidays. Discussed risk of blood clots but with the resolution of her tachycardia with the resolution of her fever, it is unlikely she has a PE at this time. Vitals stable. No SOB. 4. Hypomagnesemia, severe, chronic - This has been ongoing. Takes a supplement. Replace with mag rider. 5. DMt2 - Cont home meds, accuchecks achs, ss insulin, diabetic diet 6. Hypertension - Cont home meds 7. Hypothyroidism - Cont home meds 8. GERD - Cont home meds Patient required 2L overnight due to not having her CPAP but has otherwise been on RA. Her fever broke last night and therefore her HR normalized as well. This morning her vitals are normal. She is feeling better. She remains on RA. Discussed a VQ scan however we do not have NM available today due to the holiday. However we also discussed her HR was likely elevated due to dehydration and fever and with correction of those factors her HR is normal today. Wells score is low risk. No signs of DVT. No hypotension, hypoxia noted. Regarding her covid, she is within window for treatment. We initially discussed paxlovid however her GFR is below the cut off for dosing. We discussed no treatment vs also remdesivir outpatient for 3 days. She opted to do remdesivir, we will complete first dose here today and she will come back the following two days outpatient. Also her magnesium is very low again. Looking back she has had severe hypomagnesemia for past year at least. She received 4gm of mag the last hospitalization and it improved to 1.8, but at recheck with pcp it was 1.5. She has been taking an otc mag supplement. Will give mag IV today and recommended doubling her mag supplement dose in frequent smaller doses. F/u with pcp for recheck on this. Red flags on when to return to the ER discussed. Discharge diagnoses: 1. Covid 19 2. Sinus tachycardia - resolved 3. Elevated d dimer 4. Hypomagnesemia, chronic 5. DMT2 6. Hypertension 7. Hypothyroidism 8. GERD Additional Planning: Case discussed with ED Physician, Dr. Fallon. DVT Prophylaxis: Lovenox Advanced Care Plannin minutes spent discussing advance care planning. Admit to: Obs Discussed Plan of Care with Dr. Lina Wilson. Review With Patient Reviewed with Patient and Family: Patient and family have been counseled on condition and care plan and have no immediate questions. I have personally discussed and reviewed the patient's visit/current labs/imaging/decision making with Dr. Lina Wilson, my supervising attending. Total number of minutes spent with patient [ 85] min. More than 50% of the time spent with this patient was devoted to counseling and coordination of care. Time of Admission:04/22/24 17:30 Time of Discharge: 04/23/24 1015 Discharge Plan Discharge Discharge Orders: Discharge Patient (ONCE); Ordered 04/23/24 Ordered By: JADE MOSS Activity Restrictions/Additional Instructions: DISCHARGE TO HOME LEAVE PERIPHERAL IV IN DX: COVID 19, LOW MAGNESIUM COME BACK THE NEXT TWO DAYS FOR REMAINING REMDESIVIR DOSES CONSIDER DOUBLING YOUR MAGNESIUM SUPPLEMENT, YOUR MAG CONTINUES TO BE LOW TAKE SMALLER FREQUENT DOSES TO HELP INCREASE ABSORPTION FOLLOW UP WITH PCP NEXT WEEK RETURN WITH WORSENING SYMPTOMS PHARMACY: [facility] SENT [facility] FOR YOU Patient Disposition: HOME SELF-CARE Prescriptions: New benzonatate 100 mg capsule 100 mg PO TID PRN (Reason: cough) Qty: 30 0RF Continued Trulicity 3 mg/0.5 mL pen injector See Rx Instructions .ROUTE .COMPLEX Qty: 4 2RF Dose Instruction: INJECT 3 MG SUBCUTANEOUSLY ONCE A WEEK Rx Instructions: INJECT 3 MG SUBCUTANEOUSLY ONCE A WEEK fluticasone propionate [Allergy Relief (fluticasone)] 50 mcg/actuation spray,suspension 2 spray intranasal QDAY Qty: 16 2RF Rx Instructions: administer into each nostril Jardiance 25 mg tablet 25 mg PO QAM Qty: 90 1RF omeprazole 20 mg capsule,delayed release(DR/EC) 20 mg PO DAILY Qty: 90 0RF rosuvastatin 40 mg tablet 40 mg PO DAILY Qty: 90 2RF insulin glargine [Basaglar KwikPen U-100 Insulin] 100 unit/mL (3 mL) insulin pen 80 unit subcut QPM 30 Days Qty: 24 2RF duloxetine 60 mg capsule,delayed release(DR/EC) 60 mg PO DAILY Qty: 90 0RF gabapentin 300 mg capsule 300 mg PO 3XD Qty: 90 2RF aspirin 81 MG tablet,delayed release (DR/EC) 81 mg PO DAILYWM clobetasol 0.05 % ointment 1 applic topical 2XD levothyroxine 100 mcg tablet 112 mcg PO QDAY losartan 50 mg tablet 50 mg PO QDAY Qty: 90 1RF potassium chloride 10 mEq capsule, extended release See Rx Instructions .ROUTE .COMPLEX Qty: 60 2RF Dose Instruction: TAKE 1 CAPSULE BY MOUTH TWICE DAILY FOR 30 DAYS Rx Instructions: TAKE 1 CAPSULE BY MOUTH TWICE DAILY FOR 30 DAYS metoprolol tartrate 50 mg tablet See Rx Instructions .ROUTE .COMPLEX Qty: 60 2RF Dose Instruction: Take 1 tablet by mouth twice daily for 30 days Rx Instructions: Take 1 tablet by mouth twice daily for 30 days magnesium 250 mg tablet 500 mg PO QDAY Qty: 30 0RF fluocinolone and shower cap 0.01 % oil See Rx Instructions topical .COMPLEX Qty: 118.28 5RF Rx Instructions: Apply fluocinolone 0.01% in oil to a wet scalp under a shower cap for one to two hours topical; perform daily for 2 weeks ergocalciferol (vitamin D2) 1,250 mcg (50,000 unit) capsule 50,000 unit PO QWEEK 90 Days Qty: 14 2RF No Action (DME) diabetic supplies, miscellan. Misc See Rx Instructions .ROUTE Qty: 1 0RF Rx Instructions: diabetic shoes with inserts Did you review [place] [employer] for ALL controlled substances?: Not Applicable Discussed opioids are addictive and Narcan is available by prescription or from pharmacy.: No Condition: Stable Referrals: TYRA MYERS APRN,FNPBC [Primary Care Provider] - 04/30/24 8:00 am
[2024-04-23] MEDS: VEKLURY 200 MG in SODIUM CHLORIDE 250 ML IV ONE (12:48)
--- NOTE | 2024-04-23 13:05 | PCM ---
Date of Service Date Seen by Provider: 04/23/24 Time Seen by Provider: 08:55 Admit Day/Time Admission Date: 04/22/24 Admission Time: 17:24 Reason for Admission Chief Complaint: COVID POSITIVE Hospital Provider Hospital Provider: JADE MOSS PA-C, [facility] [place] Primary Care Physician Primary Care Physician: TYRA MYERS APRN,[facility] History of Present Illness History of Present Illness: Admitted 04/22/24 17:30, this 69 year old /WHITE/F with pmhx of diabetes, hypertension, gerd, hyperlipidemia, hypothyroidism, CKD who presents for sob and fever. Her has had the "flu" lately. She started with symptoms 4 days ago, has just "felt terrible." In the ER she was covid positive. CXR negative. Lactic normal but procal mildly high. She was running a >101T and HR was 140s. It remained elevated after fluids and tylenol. Ddimer elevated but unable to do CTA due to her CKD. She was 98% on RA. Admitted to med surg. Patient required 2L overnight due to not having her CPAP but has otherwise been on RA. Her fever broke last night and therefore her HR normalized as well. This morning her vitals are normal. She is feeling better. She remains on RA. Discussed a VQ scan however we do not have NM available today due to the holiday. However we also discussed her HR was likely elevated due to dehydration and fever and with correction of those factors her HR is normal today. Wells score is low risk. No signs of DVT. No hypotension, hypoxia noted. Case Discussed With Case Discussed With: Patient's case was discussed with the ER Physicians, Dr. Fallon. [facility] Medical History CKD (chronic kidney disease) N18.9 - Chronic kidney disease, unspecified (ICD-10) History of renal stone 06/02/19 Right UVJ Z87.442 - Personal history of urinary calculi (ICD-10) Non-Hodgkin lymphoma C85.90 - Non-Hodgkin lymphoma, unspecified, unspecified site (ICD-10) Chest pain R07.9 - Chest pain, unspecified (ICD-10) Myocardial infarction (~2008) Dr. Erwin. Two stents placed I21.9 - Acute myocardial infarction, unspecified (ICD-10) Depression F32.9 - Major depressive disorder, single episode, unspecified (ICD-10) Gout M10.9 - Gout, unspecified (ICD-10) Urinary incontinence R32 - Unspecified urinary incontinence (ICD-10) Chronic arthritis M19.90 - Unspecified osteoarthritis, unspecified site (ICD-10) Surgical History History of renal stent History of removal of calculus of renal pelvis through percutaneous nephrostomy 06/02/[address] Col[facility] Z98.890 - Other specified postprocedural states (ICD-10) Z87.442 - Personal history of urinary calculi (ICD-10) History of cardiac catheterization 01/03/2018; 01/18/18; 03/29/18 Z98.890 - Other specified postprocedural states (ICD-10) History of coronary angioplasty with insertion of stent 01/18/18 L&RHC; X2 stents; 01/03/18 Angioplasty-see sx hx; Dr. Erwin; On ASA daily. Z95.5 - Presence of coronary angioplasty implant and graft (ICD-10) History of neck surgery (08/16/17) Dr. Yu 2002 Z98.890 - Other specified postprocedural states (ICD-10) Status post hysterectomy Total Z90.710 - Acquired absence of both cervix and uterus (ICD-10) Status post cholecystectomy Z90.49 - Acquired absence of other specified parts of digestive tract (ICD- 10) History of section Z98.891 - History of uterine scar from previous surgery (ICD-10) Cataract Bilateral w/ lens implants H26.9 - Unspecified cataract (ICD-10) Family History Mother Gout Cardiac disease Hypertension Mini stroke FATHER Diabetes Cardiac disease Hypertension Social History Smoking and tobacco status: Former smoker Tobacco: How many years used: 25 How long ago did patient quit smoking: one and one half years Alcohol intake: never Substance use type: does not use Household members: spouse Allergies Allergies Allergy/AdvReac Type Severity Reaction Status Date / Time metformin AdvReac Intermediate elevated Verified 04/22/24 14:33 kidney function; diarrhea nifedipine (From Procardia) AdvReac Intermediate rash, Verified 04/22/24 14:33 itching Current Medications Home Medications aspirin 81 mg tablet,delayed release 81 mg PO DAILYWM 07/22/17 [History Confirmed 04/22/24 Last Taken 02/12/24] diabetic supplies, miscellan. #1 ea 11/25/20 [Rx Confirmed 04/22/24 Last Taken Unknown] dulaglutide 3 mg/0.5 mL subcutaneous pen injector (Trulicity) See Rx Instructions .Route .COMPLEX #4 mL 08/14/23 [Rx Confirmed 04/22/24 Last Taken 02/07/24] ergocalciferol (vitamin D2) 1,250 mcg (50,000 unit) capsule 50,000 unit PO QWEEK 3 months #14 caps 11/30/23 [Rx Confirmed 04/22/24 Last Taken 02/06/24] fluocinolone 0.01 % scalp oil and shower cap See Rx Instructions topical .COMPLEX #118.28 mL 11/30/23 [Rx Confirmed 04/22/24 Last Taken 02/08/24] fluticasone propionate 50 mcg/actuation nasal spray,suspension (Allergy Relief (fluticasone)) 2 spray intranasal QDAY #16 grams 12/02/23 [Rx Confirmed 04/22/24 Last Taken 02/12/24] empagliflozin 25 mg tablet (Jardiance) 25 mg PO QAM #90 tabs 02/06/24 [Rx Confirmed 04/22/24 Last Taken 02/12/24] omeprazole 20 mg capsule,delayed release 20 mg PO DAILY #90 caps 02/08/24 [Rx Confirmed 04/22/24 Last Taken 02/12/24] clobetasol 0.05 % topical ointment 1 applic topical 2XD 02/13/24 [History Confirmed 04/22/24 Last Taken 02/12/24] levothyroxine 100 mcg tablet 112 mcg PO QDAY 02/13/24 [History Confirmed 04/22/24 Last Taken 02/12/24] losartan 50 mg tablet 50 mg PO QDAY #90 tabs 02/20/24 [Rx Confirmed 04/22/24 Last Taken Unknown] magnesium 250 mg tablet 500 mg (2 x 250 mg) PO QDAY taking otc #30 tabs 02/20/24 [Rx Confirmed 04/22/24 Last Taken Unknown] metoprolol tartrate 50 mg tablet See Rx Instructions .Route .COMPLEX #60 tabs 02/20/24 [Rx Confirmed 04/22/24 Last Taken Unknown] potassium chloride 10 mEq capsule,extended release See Rx Instructions .Route .COMPLEX #60 caps 02/20/24 [Rx Confirmed 04/22/24 Last Taken Unknown] rosuvastatin 40 mg tablet 40 mg PO DAILY #90 ea 02/25/24 [Rx Confirmed 04/22/24 Last Taken Unknown] insulin glargine 100 unit/mL (3 mL) subcutaneous pen (Basaglar KwikPen U-100 Insulin) 80 unit (0.8 mL) subcut QPM 1 month #24 mL 04/02/24 [Rx Confirmed 04/22/24 Last Taken Unknown] duloxetine 60 mg capsule,delayed release 60 mg PO DAILY #90 ea 04/09/24 [Rx Confirmed 04/22/24 Last Taken Unknown] gabapentin 300 mg capsule 300 mg PO 3XD #90 caps 04/10/24 [Rx Confirmed 04/22/24 Last Taken Unknown] benzonatate 100 mg capsule 100 mg PO TID PRN cough #30 caps 04/23/24 [Rx Last Taken Unknown] Home Acetaminophen (Acetaminophen 325 Mg Tablet) 650 mg PO Q4H PRN PRN Reason: Mild Pain Last Admin: 04/23/24 07:32 Dose: 650 mg Aspirin (Aspirin 81 Mg Tablet.) 81 mg PO QDPC2 [facility] Last Admin: 04/23/24 08:56 Dose: 81 mg Benzonatate (Benzonatate 100 Mg Capsule) 100 mg PO TID PRN PRN Reason: Cough Duloxetine HCl (Duloxetine Hcl 30 Mg Capsule.) 60 mg PO DAILY [facility] Last Admin: 04/23/24 08:57 Dose: 60 mg Empagliflozin (Empagliflozin 10 Mg Tablet) 25 mg PO QAM [facility] Last Admin: 04/23/24 08:58 Dose: 25 mg Enoxaparin Sodium (Enoxaparin Sodium 30 Mg/0.3 Ml Syr) 30 mg SUBCUT DAILY [facility] Gabapentin (Gabapentin 300 Mg Capsule) 300 mg PO 3XD [facility] Last Admin: 04/23/24 08:56 Dose: 300 mg Guaifenesin/Dextromethorphan (Guaifenesin/Dextromethorphan 200/20 Mg/10 Ml Cup) 5 ml PO Q4H PRN PRN Reason: Cough Lactated Ringer's (Lactated Ringers) 1,000 mls @ 75 mls/hr IV .[id number] [facility] Last Admin: 04/22/24 19:37 Dose: 75 mls/hr MAGNESIUM SULFATE IN WATER (Magnesium Sulf 2 G/50 Ml Bag) 2 gm in 50 mls @ 25 mls/hr IV ONCE ONE Stop: 04/23/24 18:59 Remdesivir 100 mg/ Sodium (Chloride) 100 mls @ 200 mls/hr IV DAILY [facility] Stop: 04/25/24 10:59 Insulin Glargine (Insulin Glargine,Hum.Rec.Anlog 100 Units/Ml) 80 unit SUBCUT QPM [facility] Levothyroxine Sodium (Levothyroxine Sodium 112 Mcg Tablet) 112 mcg PO QDAC2 [facility] Last Admin: 04/23/24 05:10 Dose: 112 mcg Metoprolol Tartrate (Metoprolol Tartrate 50 Mg Tablet) 50 mg PO BID [facility] Last Admin: 04/23/24 08:55 Dose: 50 mg Omeprazole (Omeprazole 20 Mg Capsule.Dr) 20 mg PO QDAC2 [facility] Last Admin: 04/23/24 05:10 Dose: 20 mg Ondansetron HCl (Ondansetron Hcl/Pf 4 Mg/2 Ml Sdv) 4 mg IVP Q6H PRN PRN Reason: Nausea / Vomiting Rosuvastatin Calcium (Rosuvastatin Calcium 10 Mg Tablet) 40 mg PO DAILY [facility] Last Admin: 04/23/24 08:57 Dose: 40 mg Sodium Chloride (0.9% Sodium Chloride 10 Ml Disp.Syrin) 1 syr IVF PRN PRN PRN Reason: To flush IV Last Admin: 04/22/24 15:09 Dose: 1 syr Discontinued Medications Acetaminophen (Acetaminophen 500 Mg Tablet) 1,000 mg PO ONCE ONE Stop: 04/22/24 17:01 Last Admin: 04/22/24 16:53 Dose: 1,000 mg Enoxaparin Sodium (Enoxaparin Sodium 100 Mg/Ml Syr) 80 mg SUBCUT ONCE ONE Stop: 04/22/24 17:31 Last Admin: 04/22/24 17:40 Dose: 80 mg Sodium Chloride (Sodium Chloride) 500 mls @ 125 mls/hr IV .Q4H ONE Stop: 04/22/24 18:53 Last Infusion: 04/22/24 16:38 Dose: Infused Sodium Chloride (Sodium Chloride) 1,000 mls @ 1,000 mls/hr IV BOLUS ONE Stop: 04/22/24 17:30 Last Infusion: 04/22/24 17:43 Dose: Infused Remdesivir 200 mg/ Sodium (Chloride) 250 mls @ 250 mls/hr IV ONCE ONE Stop: 04/23/24 11:29 Last Admin: 04/23/24 12:48 Dose: 250 mls/hr MAGNESIUM SULFATE IN WATER (Magnesium Sulf 2 G/50 Ml Bag) 2 gm in 50 mls @ 25 mls/hr IV ONCE ONE Stop: 04/23/24 12:17 Last Admin: 04/23/24 10:34 Dose: 25 mls/hr Ibuprofen (Ibuprofen 600 Mg Tablet) 600 mg PO ONCE ONE Stop: 04/22/24 18:09 Last Admin: 04/22/24 18:18 Dose: 600 mg Opioid Naive vs. Tolerant Does Patient Take Opioids?: No Is Patient Opioid Naive?: Yes What is Opioid Naive?: *Opioid Naive implies the patient is not already taking opioids or not chronically receiving opioids on a daily basis. *PRN dosing is not "usually" associated with tolerance. *Patients are at higher risk of over-sedation and aspiration. Is Patient Opioid Tolerant?: No What is Opioid Tolerant?: *Opioid Tolerance implies less than the expected response to an opioid. *Acquired tolerance is defined by the patient taking 60mg of oral morphine daily (or equianalgesic dose of another opioid) for 1 week or more. *Often associated with chronic pain. *May take more than usual dose to achieve desired pain control. Review of Systems Constitutional: Reports Fever, Fatigue, Weakness and Loss of appetite Head: Reports Normocephalic and Atraumatic Cardiovascular: Denies Chest pain, Chest Pressure or Edema Respiratory: Reports Cough and Shortness of air Gastrointestinal: Denies Nausea, Vomiting, Diarrhea, Abdominal pain or Melena Genitourinary: Denies Dysuria or Frequency Neurological: Reports Headache; Denies Dizziness, Syncope or Numbness Physical examination Most Recent Vital Signs: Most Recent Vital Signs Temperature 98.2 F 04/23/24 10:00 Temperature Source Oral 04/23/24 10:00 Temperature Source Temporal Artery Scan 04/22/24 16:45 Pulse Rate 92 04/23/24 10:00 Respiratory Rate 16 04/23/24 10:00 Blood Pressure 155/61 H 04/23/24 10:00 Blood Pressure Mean 92 04/23/24 10:00 Blood Pressure Left Arm 162/67 04/22/24 19:00 Blood Pressure Location Left Arm 04/23/24 10:00 Blood Pressure Position Supine 04/23/24 10:00 O2 Sat by Pulse Oximetry 94 L 04/23/24 10:00 Oxygen Delivery Method Room Air 04/23/24 12:45 Oxygen Flow Rate 2 04/23/24 05:29 Height 5 ft 1 in 04/22/24 19:00 Weight 78.2 kg 04/22/24 19:00 Telemetry Type Bedside Monitor 04/23/24 07:00 Telemetry Monitoring Continues 04/23/24 07:00 Telemetry Heart Rate 91 04/23/24 07:00 Telemetry SPO2 97 04/23/24 07:00 EKG IN Interval 0.17 04/23/24 07:00 EKG QRS Interval 0.07 04/23/24 07:00 Telemetry Strip Reading SR 04/23/24 07:00 Appearance: Positive No Apparent Distress and Alert and Oriented x3 Skin: Positive Conde, Warm and Good Turgor; Negative Rashes HEENT: Positive Normocephalic and Atraumatic Neck: Positive Supple and Midline Trachea Chest/Lungs: Positive Clear to Auscultation Bilaterally; Negative Rales, Rhonci or Wheezes Heart: Positive RRR and Murmur GI/: Positive Soft, Nontender, Bowel Sounds Normal and No Distention Neurological: Positive Cranial Nerves Intact, Alert and Oriented Psychiatric: Positive Oriented x4, Appropriate Mood and Appropriate Affect Labs This Visit Labs This Visit: Labs This Visit 04/22/24 04/22/24 04/22/24 14:45 15:17 15:48 WBC 12.36 H RBC 4.62 Hgb 13.5 Hct 42.1 MCV 91.1 MCH 29.2 MCHC 32.1 RDW Coeff of Frandy 13.4 Plt Count 258 Immature Gran % (Auto) 0.4 Neut % (Auto) 82.4 H Lymph % (Auto) 7.4 L Bradford % (Auto) 8.7 Eos % (Auto) 0.7 Baso % (Auto) 0.4 Neut # (Auto) 10.2 H Lymph # (Auto) 0.9 Bradford # (Auto) 1.1 Eos # (Auto) 0.1 Baso # (Auto) 0.1 Immature Gran # (Auto) 0.1 PT INR Sodium 135.9 Potassium 4.50 Chloride 97.3 L Carbon Dioxide 26.6 Anion Gap 16.50 BUN 21.9 H Creatinine 2.13 H Estimated GFR (MDRD) 23.00 BUN/Creatinine Ratio 10.28 Glucose 157.7 H Lactic Acid 1.66 Calcium 9.67 Magnesium Total Bilirubin 2.79 H AST 33.2 ALT 28.1 Alkaline Phosphatase 144.5 H Total Protein 8.53 H Albumin 4.67 Globulin 3.86 Albumin/Globulin Ratio 1.20 Procalcitonin 0.31 H D-Dimer 1221.46 H Urine Color Yellow Urine Clarity Clear Urine pH 6.0 Ur Specific Aiken 1.020 Urine Protein 2+ H Urine Glucose (UA) 3+ H Urine Ketones Negative Urine Blood Trace-intact H Urine Nitrite Negative Urine Bilirubin Negative Urine Urobilinogen 1.0 H Ur Leukocyte Esterase Negative Urine Microscopic RBC 5-10 Urine Microscopic WBC 0-2 Ur Squamous Epith Cells 5-10 Ur Renal Epithelial Cell 2-5 Triple Phos Crystals Trace Urine Bacteria Trace Urine Mucus Trace Urine Yeast 3+ Influ A Molecular Assay Negative by naat Influ B Molecular Assay Negative by naat RSV Antigen Negative by naat SARS CoV-2 RNA Rapid VANDANA Positive H 04/23/24 04/23/24 05:13 05:19 WBC 8.39 RBC 3.79 L Hgb 11.1 L Hct 35.5 L D MCV 93.7 MCH 29.3 MCHC 31.3 L RDW Coeff of Frandy 13.8 Plt Count 206 Immature Gran % (Auto) 0.5 Neut % (Auto) 69.9 Lymph % (Auto) 16.0 Bradford % (Auto) 12.8 H Eos % (Auto) 0.4 Baso % (Auto) 0.4 Neut # (Auto) 5.9 Lymph # (Auto) 1.3 Bradford # (Auto) 1.1 Eos # (Auto) 0.0 Baso # (Auto) 0.0 Immature Gran # (Auto) 0.0 PT 11.6 H INR 1.13 Sodium 136.6 Potassium 3.72 Chloride 102.3 Carbon Dioxide 27.1 Anion Gap 10.92 BUN 23.7 H Creatinine 1.98 H Estimated GFR (MDRD) 25.00 BUN/Creatinine Ratio 11.96 Glucose 103.8 D Lactic Acid Calcium 8.57 Magnesium 1.28 L Total Bilirubin 1.65 H AST 33.6 ALT 22.0 Alkaline Phosphatase 110.2 D Total Protein 6.76 Albumin 3.63 Globulin 3.13 Albumin/Globulin Ratio 1.15 Procalcitonin D-Dimer Urine Color Urine Clarity Urine pH Ur Specific Aiken Urine Protein Urine Glucose (UA) Urine Ketones Urine Blood Urine Nitrite Urine Bilirubin Urine Urobilinogen Ur Leukocyte Esterase Urine Microscopic RBC Urine Microscopic WBC Ur Squamous Epith Cells Ur Renal Epithelial Cell Triple Phos Crystals Urine Bacteria Urine Mucus Urine Yeast Influ A Molecular Assay Influ B Molecular Assay RSV Antigen SARS CoV-2 RNA Rapid VANDANA Imaging Imaging: EXAM: CHEST RADIOGRAPH TECHNIQUE: Single frontal chest radiograph. HISTORY: Cough and fever COMPARISON: 02/13/2024 FINDINGS: The lungs are clear without focal consolidation. No pleural effusion or pneumothorax. The cardiomediastinal silhouette, mariposa and pulmonary vascular markings are within normal limits. No acute osseous abnormality. IMPRESSION: 1. No acute cardiopulmonary process. Review Statement Review Statement: I have independently reviewed and interpreted the labs/EKGs/imaging that were ordered by the ER provider. I have reviewed all outside records that are available currently in our EMR including imaging/notes/labs from previous visits. Plan Plan: 1. Hypomagnesemia, severe, acute on chronic - Will give 4 gm mag rider today, repeat labs in AM. tele. Increase outpatient supplement. 2. Covid 19 - patient with fever and sinus tach in the ER despite fluids and tylenol. Supportive measures. Remdesivir. Dexamethasone not indicated at this time. Gfr below cut off for paxlovid. 3. Sinus tach - Resolved with breaking of fever. HR is normal since late last night. 4. Elevated d dimer - Likely due to acute covid. Wells criteria low risk. Unable to CTA due to renal function. Unable to do VQ due to no NM available with holidays. Discussed risk of blood clots but with the resolution of her tachycardia with the resolution of her fever, it is unlikely she has a PE at this time. Vitals stable. No SOB. 5. DMt2 - Cont home meds, accuchecks achs, ss insulin, diabetic diet 6. Hypertension - Cont home meds 7. Hypothyroidism - Cont home meds 8. GERD - Cont home meds DVT Prophylaxis: Lovenox Time Spent: Greater than 80 minutes spent with patient, 50% of the time spent w ith this patient was devoted to counseling and coordination of care. [facility] minutes spent discussing advance care planning. Admit to: Obs Discussed Plan of Care with Dr. Lina Wilson. Dispo: Originally planned on discharge home today but that has been delayed due to insurance not available to precert outpatient remdesivir the next two days. Will continue to supplement her magnesium and treat covid with remdesivir. Medications Medication Orders: Medications Ordered Category Date Time Status 0.9 % Sodium Chloride [Saline Flush] Meds 04/22/24 14:53 Active 1 syr IVF PRN PRN Acetaminophen [Tylenol] Meds 04/22/24 17:48 Active 650 mg PO Q4H PRN Aspirin [Aspirin EC] Meds 04/23/24 08:00 Active 81 mg PO QDPC2 Duloxetine HCl [Cymbalta] Meds 04/22/24 20:15 Active 60 mg PO DAILY Empaglifozin [Jardiance] Meds 04/23/24 09:00 Active 25 mg PO QAM Gabapentin [Neurontin] Meds 04/22/24 21:00 Active 300 mg PO 3XD Insulin Glargine,Hum.rec.anlog [Lantus] Meds 04/23/24 17:00 Active 80 unit SUBCUT QPM Levothyroxine Sodium [Synthroid] Meds 04/23/24 06:00 Active 112 mcg PO QDAC2 Metoprolol Tartrate [Lopressor] Meds 04/22/24 21:00 Active 50 mg PO BID Omeprazole [Prilosec] Meds 04/23/24 06:00 Active 20 mg PO QDAC2 Ondansetron HCl/Pf [Zofran Sdv] Meds 04/22/24 17:48 Active 4 mg IVP Q6H PRN Ringers Lactated Solution [Lactated Ringers] 1,000 ml Meds 04/22/24 18:00 Active IV 75 mls/hr Rosuvastatin Calcium [Crestor] Meds 04/22/24 20:15 Active 40 mg PO DAILY
[2024-04-23] MEDS: TESSALON PERLES PO PRN (14:43)
[2024-04-23] MEDS: LOVENOX SUBCUT SCH (14:44)
[2024-04-23] MEDS: HYDRALAZINE HCL IVP PRN (15:16)
[2024-04-23] MEDS: TUMS CHEWABLE PO PRN (17:05)
[2024-04-23] MEDS: LANTUS SUBCUT SCH (17:30)
[2024-04-23] MEDS: ROBITUSSIN DM SYRUP PO PRN (20:05)
[2024-04-23] MEDS: BENADRYL PO PRN (20:07)
[2024-04-23] MEDS: MELATONIN PO PRN (21:39)
[2024-04-24 05:22] LABS: BASOPHILS % (AUTO) 0.2 % (0.0-3.0); EOSINOPHILS # (AUTO) 0.1 K/ul (0.0-0.7); EOSINOPHILS % (AUTO) 0.5 % (0.0-7.0); HEMATOCRIT 35.2 % (37.0-47.0); IMMATURE GRANULOCYTE % (AUTO) 0.4 % (0.0-5.0); LYMPHOCYTES # (AUTO) 2.2 K/uL (0.60-3.4); LYMPHOCYTES % (AUTO) 21.5 (10.0-50.0); MEAN CORPUSCULAR HEMOGLOBIN 29.1 pg (27.0-31.0); MEAN CORPUSCULAR HGB CONC 31.3 (31.8-35.4); MEAN CORPUSCULAR VOLUME 93.1 fl (81.0-99.0); MONOCYTES # (AUTO) 1.4 K/uL (0.4-2.0); MONOCYTES % (AUTO) 13.8 (0-10); NEUTROPHILS # (AUTO) 6.4 K/ul (2.0-6.9); NEUTROPHILS % (AUTO) 63.6 % (42.2-75.2); PLATELET COUNT 219 10^3/uL (140-440); RDW COEFFICIENT OF VARIATION 13.9 % (11.6-14.8); RED BLOOD COUNT 3.78 10^6/ul (4.20-5.40)
[2024-04-24 05:34] VITALS: TEMP 98.4
[2024-04-24 05:37] LABS: ALANINE AMINOTRANSFERASE 22.6 U/L (0-35); ALBUMIN 3.78 g/dL (3.5-5.0); ALKALINE PHOSPHATASE 132.7 U/L (53-141); ASPARTATE AMINO TRANSFERASE 41.2 U/L (14-36); BILIRUBIN,TOTAL 1.21 mg/dL (0.2-1.3); BLOOD UREA NITROGEN 25.6 mg/dL (7-17); CALCIUM 8.95 mg/dL (8.4-10.2); CARBON DIOXIDE 25.7 mmol/L (22-30.0); CHLORIDE 98.9 mmol/L (98-107); CREATININE 1.89 mg/dL (0.60-1.30); GLUCOSE 129.2 mg/dL (74-106); MAGNESIUM 2.2 mg/dL (1.6-2.3); POTASSIUM 3.82 mmol/L (3.5-5.1); SODIUM 134.9 mmol/L (134.5-145); TOTAL PROTEIN 7.03 g/dL (6.3-8.2)
[2024-04-24 05:39] LABS: PROTHROMBIN TIME 10.4 SEC (9.3-11.0)
[2024-04-24 05:47] LABS: TROPONIN I 0.171 ng/ml (0.0000-0.120)
[2024-04-24] MEDS: ASPIRIN EC PO ONE (06:42)
[2024-04-24] MEDS: LOVENOX SUBCUT ONE (06:42)
[2024-04-24] MEDS: VEKLURY 100 MG in SODIUM CHLORIDE 100ML 100 ML IV SCH (08:15)
--- NOTE | 2024-04-24 10:24 | DCSUM ---
Admission Date Admission Date: 04/22/24 Discharge Date Discharge Date: 04/24/24 Admission Diagnosis Admission Diagnosis: 1. Hypomagnesemia, severe, acute on chronic 2. Covid 19 3. Sinus tach 4. Elevated d dimer Discharge Diagnosis Discharge Diagnosis: 1. NSTEMI with ekg changes 2. Hypomagnesemia, severe, resolved 3. Covid 19 4. NSVT 5. DMT2 6. Hypertension 7. Hypothyroidism 8. GERD Hospital Provider Hospital Provider: JADE MOSS [facility]-C[facility] Physician Primary Care Physician: TYRA MYERS APRN,[facility] Summary of History and Physical Summary of History and Physical: Admitted 04/22/24 17:30, this 69 year old /WHITE/F with pmhx of diabetes, hypertension, gerd, hyperlipidemia, hypothyroidism, CKD, CAD s/p 3 stents (per patient) who presents for sob and fever. Her has had the "flu" lately. She started with symptoms 4 days ago, has just "felt terrible." In the ER she was covid positive. CXR negative. Lactic normal but procal mildly high. She was running a >101T and HR was 140s. It remained elevated after fluids and tylenol. Ddimer elevated but unable to do CTA due to her CKD. She was 98% on RA. Admitted to med surg. 04/23 - Patient required 2L overnight due to not having her CPAP but has otherwise been on RA. Her fever broke night of 04/22 and therefore her HR estephanie lized as well. Morning of 04/23 her vitals are normal. She is feeling better. She remains on RA. Discussed a VQ scan however we do not have NM available today due to the holiday. However we also discussed her HR was likely elevated due to dehydration and fever and with correction of those factors her HR is normal today. Wells score is low risk. No signs of DVT. No hypotension, hypoxia noted. Hospital Course Subjective: Initially it was discussed to discharge on paxlovid, however her GFR does not allow for it. We then discussed outpatient remdesivir for 3 days. However unable to precert it through her insurance due to the holiday. It was decided to keep her overnight, as her magnesium was also found to be very low at 1.2. This was replaced with 4 gm mag rider. Evening of 04/23 patient complained of chest pain. She had been to the rest room and then notified nurse of burning in her chest, midsternal, denied radiation. She states it lasted about an hour and was relieved with tums and tylenol. EKG at that time showing sinus rhythm, no st changes. Trops were trended. She had a run of about 10 seconds of NSVT on tele through the night. She was asymptomatic at the time. She did have an elevated troponin up to 0.171 this morning. She has remained chest pain free. However her EKG is showing some changes with t wave flattening in all leads compared to yesterday's EKG. Reviewed by attending Dr. Lina Wilson as well. Discussing her CAD further, she states she has a total of 3 stents, she last saw Dr. Erwin at [facility] in [facility], however that was several years ago. She was supposed to establish with a new Payroll Accountant in the last few weeks but missed the appointment. Due to limited resources at this time, we are unable to get an echo or VQ scan here. I feel it would be reasonable to rule out a PE. She also would benefit from a formal cardiology consult. Due to this she will be transferred to a higher level of care. In the meantime she was given aspirin 325, lovenox 80 mg x1, and made NPO. [facility], [facility], [facility] all at capacity. Patient's next preference was in [facility]. [facility] had beds available. Dr. Rodriguez, hospitalist, graciously accepts patient. She is stable for transfer. Appearance: Pleasant, No Apparent Distress and Alert HEENT: MMM CVS: Other (+murmur, chronic) Abdomen: Soft, Non-Tender and No Distention Respiratory: No Accessory Muscle Use Extremities: No Edema Vital Signs: Most Recent Vital Signs Temperature 98.4 F 04/24/24 05:34 Temperature Source Oral 04/24/24 05:34 Temperature Source Temporal Artery Scan 04/22/24 16:45 Pulse Rate 78 04/24/24 05:34 Respiratory Rate 17 04/24/24 05:34 Blood Pressure 158/67 H 04/24/24 05:34 Blood Pressure Mean 97 04/24/24 05:34 Blood Pressure Left Arm 162/67 04/22/24 19:00 Blood Pressure Location Left Arm 04/24/24 05:34 Blood Pressure Position Supine 04/24/24 05:34 O2 Sat by Pulse Oximetry 97 04/24/24 05:34 Oxygen Delivery Method Nasal Cannula 04/24/24 09:00 Oxygen Flow Rate 2 04/24/24 06:00 Height 5 ft 1 in 04/22/24 19:00 Weight 78.2 kg 04/22/24 19:00 Telemetry Type Bedside Monitor 04/24/24 01:00 Telemetry Monitoring Continues 04/24/24 01:00 Telemetry Heart Rate 81 04/24/24 01:00 Telemetry SPO2 93 04/24/24 01:00 EKG MA Interval 0.14 04/24/24 01:00 EKG QRS Interval 0.08 04/24/24 01:00 Telemetry Strip Reading SR 04/24/24 01:00 Imaging: EXAM: CHEST RADIOGRAPH TECHNIQUE: Single frontal chest radiograph. HISTORY: Cough and fever COMPARISON: 02/13/2024 FINDINGS: The lungs are clear without focal consolidation. No pleural effusion or pneumothorax. The cardiomediastinal silhouette, mariposa and pulmonary vascular markings are within normal limits. No acute osseous abnormality. IMPRESSION: 1. No acute cardiopulmonary process. Lab Results Last 24 Hours: 04/24/24 04/23/24 04/23/24 05:20 20:45 16:35 WBC 10.10 RBC 3.78 L Hgb 11.0 L Hct 35.2 L MCV 93.1 MCH 29.1 MCHC 31.3 L RDW Coeff of Frandy 13.9 Plt Count 219 Immature Gran % (Auto) 0.4 Neut % (Auto) 63.6 Lymph % (Auto) 21.5 [place] % (Auto) 13.8 H Eos % (Auto) 0.5 Baso % (Auto) 0.2 Neut # (Auto) 6.4 Lymph # (Auto) 2.2 [place] # (Auto) 1.4 Eos # (Auto) 0.1 Baso # (Auto) 0.0 Immature Gran # (Auto) 0.0 PT 10.4 INR 1.00 Sodium 134.9 Potassium 3.82 Chloride 98.9 Carbon Dioxide 25.7 Anion Gap 14.12 BUN 25.6 H Creatinine 1.89 H Estimated GFR (MDRD) 26.00 BUN/Creatinine Ratio 13.54 Glucose 129.2 H Calcium 8.95 Magnesium 2.20 Total Bilirubin 1.21 AST 41.2 H ALT 22.6 Alkaline Phosphatase 132.7 Troponin I 0.171 H 0.056 0.037 Total Protein 7.03 Albumin 3.78 Globulin 3.25 Albumin/Globulin Ratio 1.16 Discharge Instructions Discharge Planning: Discharge Planning > [address] Lina Wilson. Discharge Medications: Medications at Discharge (Home Meds & RX) Discharge Plan Discharge Activity Restrictions/Additional Instructions: DISCHARGE TO HOME LEAVE PERIPHERAL IV IN DX: COVID 19, LOW MAGNESIUM COME BACK THE NEXT TWO DAYS FOR REMAINING REMDESIVIR DOSES CONSIDER DOUBLING YOUR MAGNESIUM SUPPLEMENT, YOUR MAG CONTINUES TO BE LOW TAKE SMALLER FREQUENT DOSES TO HELP INCREASE ABSORPTION FOLLOW UP WITH PCP NEXT WEEK RETURN WITH WORSENING SYMPTOMS PHARMACY: [facility] SENT IN FOR YOU Patient Disposition: HOME SELF-CARE Prescriptions: New benzonatate 100 mg capsule 100 mg PO TID PRN (Reason: cough) Qty: 30 0RF Continued Trulicity 3 mg/0.5 mL pen injector See Rx Instructions .ROUTE .COMPLEX Qty: 4 2RF Dose Instruction: INJECT 3 MG SUBCUTANEOUSLY ONCE A WEEK Rx Instructions: INJECT 3 MG SUBCUTANEOUSLY ONCE A WEEK fluticasone propionate [Allergy Relief (fluticasone)] 50 mcg/actuation spray,suspension 2 spray intranasal QDAY Qty: 16 2RF Rx Instructions: administer into each nostril Jardiance 25 mg tablet 25 mg PO QAM Qty: 90 1RF omeprazole 20 mg capsule,delayed release(DR/EC) 20 mg PO DAILY Qty: 90 0RF rosuvastatin 40 mg tablet 40 mg PO DAILY Qty: 90 2RF insulin glargine [Basaglar KwikPen U-100 Insulin] 100 unit/mL (3 mL) insulin pen 80 unit subcut QPM 30 Days Qty: 24 2RF duloxetine 60 mg capsule,delayed release(DR/EC) 60 mg PO DAILY Qty: 90 0RF gabapentin 300 mg capsule 300 mg PO 3XD Qty: 90 2RF aspirin 81 MG tablet,delayed release (DR/EC) 81 mg PO DAILYWM clobetasol 0.05 % ointment 1 applic topical 2XD levothyroxine 100 mcg tablet 112 mcg PO QDAY losartan 50 mg tablet 50 mg PO QDAY Qty: 90 1RF potassium chloride 10 mEq capsule, extended release See Rx Instructions .ROUTE .COMPLEX Qty: 60 2RF Dose Instruction: TAKE 1 CAPSULE BY MOUTH TWICE DAILY FOR 30 DAYS Rx Instructions: TAKE 1 CAPSULE BY MOUTH TWICE DAILY FOR 30 DAYS metoprolol tartrate 50 mg tablet See Rx Instructions .ROUTE .COMPLEX Qty: 60 2RF Dose Instruction: Take 1 tablet by mouth twice daily for 30 days Rx Instructions: Take 1 tablet by mouth twice daily for 30 days magnesium 250 mg tablet 500 mg PO QDAY Qty: 30 0RF fluocinolone and shower cap 0.01 % oil See Rx Instructions topical .COMPLEX Qty: 118.28 5RF Rx Instructions: Apply fluocinolone 0.01% in oil to a wet scalp under a shower cap for one to two hours topical; perform daily for 2 weeks ergocalciferol (vitamin D2) 1,250 mcg (50,000 unit) capsule 50,000 unit PO QWEEK 90 Days Qty: 14 2RF No Action (DME) diabetic supplies, miscellan. Misc See Rx Instructions .ROUTE Qty: 1 0RF Rx Instructions: diabetic shoes with inserts Did you review [place] SURVEILLANCE [employer]ER[employer] TECHNICIAN for ALL controlled substances?: Not Applicable Discussed opioids are addictive and Narcan is available by prescription or from pharmacy.: No Condition: Stable Referrals: TYRA MYERS APRN,FNPBC [Primary Care Provider] - 04/30/24 8:00 am
[2024-04-24 14:55] VITALS: BP 153/58; PULSE 77; RESP 17
== END 2024-04-24 17:03 | disposition home or self-care (01) ==
LOC: ED 14:22 → SCU 14:22
PROVIDERS: ADMIT Hospitalist; ATTEND Physician Assistant
DX: E78.5 Hyperlipidemia, unspecified; I10 Essential (primary) hypertension; E11.9 Type 2 diabetes mellitus without complications; U07.1 COVID-19; Z79.4 Long term (current) use of insulin; I47.20 Ventricular tachycardia, unspecified; E83.42 Hypomagnesemia; R79.1 Abnormal coagulation profile; E86.0 Dehydration; E03.9 Hypothyroidism, unspecified; Z79.899 Other long term (current) drug therapy; I21.4 Non-ST elevation (NSTEMI) myocardial infarction; N18.9 Chronic kidney disease, unspecified; Z51.81 Encounter for therapeutic drug level monitoring; K21.9 Gastro-esophageal reflux disease without esophagitis

== ENCOUNTER 2024-05-02 19:59 | Observation (INO) ==
[2024-05-02 20:59] LABS: BASOPHILS % (AUTO) 0.2 % (0.0-3.0); EOSINOPHILS # (AUTO) 0.2 K/ul (0.0-0.7); EOSINOPHILS % (AUTO) 1.4 % (0.0-7.0); HEMATOCRIT 46.8 % (37.0-47.0); HEMOGLOBIN 14.9 g/dl (12.0-16.0); IMMATURE GRANULOCYTE # (AUTO) 0.2 (0.0-1.0); IMMATURE GRANULOCYTE % (AUTO) 1.4 % (0.0-5.0); LYMPHOCYTES # (AUTO) 2.7 K/uL (0.60-3.4); LYMPHOCYTES % (AUTO) 18.2 (10.0-50.0); MEAN CORPUSCULAR HEMOGLOBIN 28.9 pg (27.0-31.0); MEAN CORPUSCULAR HGB CONC 31.8 (31.8-35.4); MEAN CORPUSCULAR VOLUME 90.7 fl (81.0-99.0); MONOCYTES # (AUTO) 0.9 K/uL (0.4-2.0); MONOCYTES % (AUTO) 6.3 (0-10); NEUTROPHILS # (AUTO) 10.6 K/ul (2.0-6.9); NEUTROPHILS % (AUTO) 72.5 % (42.2-75.2); PLATELET COUNT 398 10^3/uL (140-440); RDW COEFFICIENT OF VARIATION 13.8 % (11.6-14.8); RED BLOOD COUNT 5.16 10^6/ul (4.20-5.40); WHITE BLOOD COUNT 14.67 K/ul (4.6-10.2)
--- NOTE | 2024-05-02 21:11 | ED.PDOC ---
General ED Provider: Dr. DON BALL DO Chief Complaint: Respiratory Complaint Stated Complaint: 69-year-old female presents to the ER reporting shortness of breath initially. On my examination however she says that her primary complaint was nausea but also states some shortness of breath. She was recently hospitalized with COVID approximately a week ago. She states that she received blood thinners while in the hospital but otherwise is not on any blood thinners chronically. She reports some chest pain substernal nonradiating with no modifying factors. Denies fever in the last 24 hours. Denies cough, abdominal pain, GI or issues otherwise. History of hypertension as well as insulin- dependent diabetes. History reviewed in chart as available otherwise. Time Seen by Provider: 05/02/24 20:00 Information Source: Patient Primary Care Provider: TYRA MYERS APRN,[facility] Nursing and Triage Documentation Reviewed and Agree: Yes What is Opioid Naive?: *Opioid Naive implies the patient is not already taking opioids or not chronically receiving opioids on a daily basis. *PRN dosing is not "usually" associated with tolerance. *Patients are at higher risk of over-sedation and aspiration. What is Opioid Tolerant?: *Opioid Tolerance implies less than the expected response to an opioid. *Acquired tolerance is defined by the patient taking 60mg of oral morphine daily (or equianalgesic dose of another opioid) for 1 week or more. *Often associated with chronic pain. *May take more than usual dose to achieve desired pain control. Review of Systems Review Of Systems Constitutional: Reports No symptoms All Other Systems: Reviewed and Negative [facility] Medical History CKD (chronic kidney disease) N18.9 - Chronic kidney disease, unspecified (ICD-10) History of renal stone 06/02/19 Right UVJ Z87.442 - Personal history of urinary calculi (ICD-10) Non-Hodgkin lymphoma C85.90 - Non-Hodgkin lymphoma, unspecified, unspecified site (ICD-10) Chest pain R07.9 - Chest pain, unspecified (ICD-10) Myocardial infarction (~2008) Dr. Erwin. Two stents placed I21.9 - Acute myocardial infarction, unspecified (ICD-10) Depression F32.9 - Major depressive disorder, single episode, unspecified (ICD-10) Gout M10.9 - Gout, unspecified (ICD-10) Urinary incontinence R32 - Unspecified urinary incontinence (ICD-10) Chronic arthritis M19.90 - Unspecified osteoarthritis, unspecified site (ICD-10) Family History Mother Gout Cardiac disease Hypertension Mini stroke FATHER Diabetes Cardiac disease Hypertension Social History Smoking and tobacco status: Former smoker Tobacco: How many years used: 25 How long ago did patient quit smoking: one and one half years Alcohol intake: never Substance use type: does not use Household members: spouse Surgical History History of renal stent History of removal of calculus of renal pelvis through percutaneous nephrostomy 06/02/[address] Colmenares [facility] Z98.890 - Other specified postprocedural states (ICD-10) Z87.442 - Personal history of urinary calculi (ICD-10) History of cardiac catheterization 01/03/2018; 01/18/18; 03/29/18 Z98.890 - Other specified postprocedural states (ICD-10) History of coronary angioplasty with insertion of stent 01/18/18 L&RHC; X2 stents; 01/03/18 Angioplasty-see sx hx; Dr. Erwin; On ASA daily. Z95.5 - Presence of coronary angioplasty implant and graft (ICD-10) History of neck surgery (08/16/17) Dr. Yu 2002 Z98.890 - Other specified postprocedural states (ICD-10) Status post hysterectomy Total Z90.710 - Acquired absence of both cervix and uterus (ICD-10) Status post cholecystectomy Z90.49 - Acquired absence of other specified parts of digestive tract (ICD- 10) History of section Z98.891 - History of uterine scar from previous surgery (ICD-10) Cataract Bilateral w/ lens implants H26.9 - Unspecified cataract (ICD-10) Female Reproductive History Menstrual Hx Hysterectomy: Yes (1980) Hx Tubal Ligation: No Physical Exam Physical Exam Appearance: Reports Well-appearing, No pain distress and Well-nourished Eyes: Reports JUNI, EOMI and Conjunctiva clear ENT: Reports Nose normal and Oropharynx normal Respiratory: Reports Airway patent, Breath sounds clear, Breath sounds equal and Respirations nonlabored Cardiovascular: Reports Pulses normal and Tachycardia GI/: Reports Soft and Nontender Musculoskeletal: Reports Normal strength and ROM intact Skin: Reports Warm, Dry and Normal color Neurological: Reports Sensation intact, Motor intact, Alert and Oriented Psychiatric: Reports Affect appropriate and Mood appropriate Interpretation EKG Interpretation EKG Interpretation By: ED Physician (Independent interpretation) Time of EKG #1: 21:00 Rate: Tachy Ectopy: None Creede: Left ST Segment: Normal Interpretation: Nonischemic abnormal EKG Radiology Interpretation Radiology Interpretation By: ED Physician Radiology Results: Negative Exam Interpreted: Portable CXR Re-Evaluation Re-Evaluation Additional Comments: 69-year-old female presents to the ER with shortness of breath and nausea. Afebrile nontoxic doubt sepsis. Concern for pulmonary embolism given her recent diagnosis of COVID. She is hypertensive and tachycardic on presentation without significant hypoxia, however this does not exclude my differential of PE. She does have a history of chronic kidney disease and solitary kidney congenitally acquired. Will review renal function prior to contrast administration. Also obtain cardiac workup as well as BNP with low suspicion for acute cardiopulmonary processes to include but not limited to ACS, CO, pneumothorax, dissection or tamponade. Will be prepared to escalate treatment and workup as needed. Course Course 05/02/24 20:42 05/02/24 20:42 Orders, Labs, Meds: Lab Review 05/02/24 05/02/24 20:42 20:50 WBC 14.67 H RBC 5.16 Hgb 14.9 Hct 46.8 MCV 90.7 MCH 28.9 MCHC 31.8 RDW Coeff of Frandy 13.8 Plt Count 398 Immature Gran % (Auto) 1.4 Neut % (Auto) 72.5 Lymph % (Auto) 18.2 Dare % (Auto) 6.3 Eos % (Auto) 1.4 Baso % (Auto) 0.2 Neut # (Auto) 10.6 H Lymph # (Auto) 2.7 Dare # (Auto) 0.9 Eos # (Auto) 0.2 Baso # (Auto) 0.0 Immature Gran # (Auto) 0.2 PT 11.1 H INR 1.07 APTT 25.7 Sodium 139.0 Potassium 4.40 Chloride 101.0 Carbon Dioxide 26.0 Anion Gap 16.40 BUN 34.0 H Creatinine 1.80 H Estimated GFR (MDRD) 28.00 BUN/Creatinine Ratio 18.88 Glucose 181.0 H Calcium 9.30 Total Bilirubin 2.10 H AST 51.0 H ALT 75.0 H Alkaline Phosphatase 172.0 H Troponin I < 0.012 NT-Pro-B Natriuret Pep 848 H Total Protein 7.70 Albumin 4.20 Globulin 3.50 Albumin/Globulin Ratio 1.20 Influ A Molecular Assay Negative by naat Influ B Molecular Assay Negative by naat SARS CoV-2 RNA Rapid VANDANA Positive H Orders Category Date Time Status ADMIT OBSERVATION [PLACE PATIENT OBSERVATION] .TO ADMISSION 05/02/24 22:56 Active MEDSURG (MONITORED BED) EKG-(ED ONLY) Stat CARDIO 05/02/24 20:36 Completed ACTIVITY .Up With Assistance CARE 05/02/24 22:57 Active GIVE HS SNACK 2100 CARE 05/02/24 22:57 Active INTAKE & OUTPUT Q8HR CARE 05/02/24 22:57 Active NPO REMINDER: IMAGING ONCE CARE 05/02/24 20:36 Active TELEMETRY MONITORING TELE CARE 05/02/24 22:56 Active TELEMETRY MONITORING TELE CARE 05/02/24 22:57 Active ADA 1800 GAETANO. DIET DIETARY 05/03/24 Breakfast Ordered HS SNACK DIETARY 05/02/24 Dinner Ordered LOW SALT DIET [2 GRAM SODIUM DIET] DIETARY 05/03/24 Breakfast Ordered VERTICAL BORER CONSULT [CONSULT DIETITIAN] ONCE DIETITIAN 05/02/24 22:57 Active CBC W/ AUTO DIFF Stat LAB 05/02/24 20:42 Completed CMP [COMPREHENSIVE METABOLIC PANEL] Stat LAB 05/02/24 20:42 Completed COVID [SARS COV-2 RNA RAPID VANDANA] Stat LAB 05/02/24 20:50 Completed ED PROBNP [NT-PROBNP(ED)] Stat LAB 05/02/24 20:42 Completed FLU A & B MOLECULAR [FLU A/B MOLECULAR] Stat LAB 05/02/24 20:50 Completed PT WITH INR Stat LAB 05/02/24 20:42 Completed PTT [PARTIAL THROMBOPLASTIN TIME] Stat LAB 05/02/24 20:42 Completed TROPONIN I Stat LAB 05/02/24 20:42 Completed Acetaminophen [Tylenol] Meds 05/02/24 22:57 Ordered 500 mg PO Q6HR PRN Docusate Sodium [Colace] Meds 05/02/24 22:57 Ordered 100 mg PO DAILY PRN Enoxaparin Sodium [Lovenox] Meds 05/02/24 21:41 Discontinued 100 mg SUBCUT ONCE STA Furosemide [Lasix] Meds 05/02/24 21:42 Discontinued 20 mg IVP ONCE ONE Metoprolol Tartrate [Lopressor] Meds 05/02/24 22:30 Discontinued 5 mg IVP ONCE STA Ondansetron [Zofran Odt] Meds 05/02/24 22:57 Ordered 4 mg PO Q4HR PRN CHEST, 1V AP ONLY Stat RADS 05/02/24 21:[address] ABDOMEN/PELVIS WO CONTRAST Stat RADS 05/02/24 21:44 Completed Medications Generic Name Dose Route Start Last Admin Trade Name Freq PRN Reason Stop Dose Admin Acetaminophen 500 mg 05/02/24 22:57 Acetaminophen 500 Mg Tablet PO Q6HR PRN FEVER/PAIN Docusate Sodium 100 mg 05/02/24 22:57 Docusate Sodium 100 Mg Capsule PO DAILY PRN Constipation Ondansetron HCl 4 mg 05/02/24 22:57 Ondansetron Hcl 4 Mg Tab.Rapdis PO Q4HR PRN Nausea / Vomiting Discontinued Medications Generic Name Dose Route Start Last Admin Trade Name Freq PRN Reason Stop Dose Admin Enoxaparin Sodium 100 mg 05/02/24 21:41 05/02/24 22:49 Enoxaparin Sodium 100 Mg/Ml Syr SUBCUT 05/02/24 21:42 100 mg ONCE STA Administration Furosemide 20 mg 05/02/24 21:42 05/02/24 22:47 Furosemide Inj 20 Mg/2 Ml Vial IVP 05/02/24 21:43 20 mg ONCE ONE Administration Metoprolol Tartrate 5 mg 05/02/24 22:30 05/02/24 22:49 Metoprolol Tartrate 5 Mg/5 Ml Vial IVP 05/02/24 22:31 5 mg ONCE STA Administration Vital Signs: Temp Pulse Resp BP Pulse Ox 05/02/24 20:08 98.0 F 140 H 18 127/74 100 Discharge Plan Discharge Patient Disposition: PLACED OBSERVATION Discharge Problem: Acute dyspnea, HTN (hypertension), Tachycardia, History of insulin dependent diabetes mellitus Prescriptions: No Action Trulicity 3 mg/0.5 mL pen injector See Rx Instructions .ROUTE .COMPLEX Qty: 4 2RF Dose Instruction: INJECT 3 MG SUBCUTANEOUSLY ONCE A WEEK Rx Instructions: INJECT 3 MG SUBCUTANEOUSLY ONCE A WEEK fluticasone propionate [Allergy Relief (fluticasone)] 50 mcg/actuation spray,suspension 2 spray intranasal QDAY Qty: 16 2RF Rx Instructions: administer into each nostril Jardiance 25 mg tablet 25 mg PO QAM Qty: 90 1RF omeprazole 20 mg capsule,delayed release(DR/EC) 20 mg PO DAILY Qty: 90 0RF rosuvastatin 40 mg tablet 40 mg PO DAILY Qty: 90 2RF insulin glargine [Basaglar KwikPen U-100 Insulin] 100 unit/mL (3 mL) insulin pen 80 unit subcut QPM 30 Days Qty: 24 2RF duloxetine 60 mg capsule,delayed release(DR/EC) 60 mg PO DAILY Qty: 90 0RF gabapentin 300 mg capsule 300 mg PO 3XD Qty: 90 2RF aspirin 81 MG tablet,delayed release (DR/EC) 81 mg PO DAILYWM clobetasol 0.05 % ointment 1 applic topical 2XD levothyroxine 100 mcg tablet 112 mcg PO QDAY benzonatate 100 mg capsule 100 mg PO TID PRN (Reason: cough) Qty: 30 0RF (DME) diabetic supplies, miscellan. Misc See Rx Instructions .ROUTE Qty: 1 0RF Rx Instructions: diabetic shoes with inserts losartan 50 mg tablet 50 mg PO QDAY Qty: 90 1RF potassium chloride 10 mEq capsule, extended release See Rx Instructions .ROUTE .COMPLEX Qty: 60 2RF Dose Instruction: TAKE 1 CAPSULE BY MOUTH TWICE DAILY FOR 30 DAYS Rx Instructions: TAKE 1 CAPSULE BY MOUTH TWICE DAILY FOR 30 DAYS metoprolol tartrate 50 mg tablet See Rx Instructions .ROUTE .COMPLEX Qty: 60 2RF Dose Instruction: Take 1 tablet by mouth twice daily for 30 days Rx Instructions: Take 1 tablet by mouth twice daily for 30 days magnesium 250 mg tablet 500 mg PO QDAY Qty: 30 0RF fluocinolone and shower cap 0.01 % oil See Rx Instructions topical .COMPLEX Qty: 118.28 5RF Rx Instructions: Apply fluocinolone 0.01% in oil to a wet scalp under a shower cap for one to two hours topical; perform daily for 2 weeks ergocalciferol (vitamin D2) 1,250 mcg (50,000 unit) capsule 50,000 unit PO QWEEK 90 Days Qty: 14 2RF Did you review [place] [employer] REPRESENTATIVE for ALL controlled substances?: Not Applicable ED Provider: DON BALL Condition: Stable
[2024-05-02 21:12] LABS: SARS COV-2 RNA RAPID NAAT POSITIVE (NEGATIVE)
[2024-05-02 21:18] LABS: PARTIAL THROMBOPLASTIN TIME 25.7 SEC (23.9-40.0); PROTHROMBIN TIME 11.1 SEC (9.3-11.0)
[2024-05-02 21:24] LABS: TROPONIN I < 0.012 ng/ml (0.0000-0.120)
[2024-05-02 21:25] LABS: MOLECULAR FLU A NEGATIVE BY NAAT (NEGATIVE); MOLECULAR FLU B NEGATIVE BY NAAT (NEGATIVE)
[2024-05-02] MEDS: LASIX IVP ONE (22:47)
[2024-05-02] MEDS: LOPRESSOR IVP STA (22:49)
[2024-05-02] MEDS: LOVENOX SUBCUT STA (22:49)
--- NOTE | 2024-05-02 22:52 | CT ---
EXAM: CT OF THE ABDOMEN AND PELVIS WITHOUT CONTRAST. TECHNIQUE: CT of the abdomen and pelvis was performed without the use of contrast. Multiplanar refo rmats were performed. HISTORY: Elevated liver function studies. Abdominal pain. COVID-19. COMPARISON: None. FINDINGS: Evaluation of solid organs and blood vessels is suboptimal without the benefit of contrast. Imaged lower thorax: No acute findings. Some coronary atherosclerotic plaque is present. Liver: Hepatomegaly. Mild steatosis suspected. Gallbladder/Bile Ducts: No biliary dilation. The gallbladder is absent.. Spleen: Unremarkable. Pancreas: Normal. Adrenals: No discrete lesions. Kidneys/Ureters: Severe atrophy left kidney. No stone, mass or obstruction on the right. Bowel/mesentery/peritoneum: No obstruction. There are some changes in the right colon wall which can be seen with a history of inflammatory bowel disease but are nonspecific otherwise. Normal appendix. No free fluid or free air.. Abominal Wall: No defects. Retroperitoneum/vessels: No aortic aneurysm. No adenopathy. Pelvis: The bladder wall contour is normal.. Bones: No aggressive lesion identified.No acute fracture. Degenerative change lumbar spine hips and p severiano. Atherosclerosis. IMPRESSION: 1. Hepatomegaly with mild steatosis. 2. Atrophied left kidney 3. Post cholecystectomy. All CT scans are performed using dose optimization techniques as appropriate to the performed exam an d includes at least one of the following: Automated exposure control, adjustment of the mA and/or kV according to size, and the use of iterative reconstruction technique. All CT scans are performed using dose optimization techniques as appropriate to the performed exam an d include at least one of the following: Automated exposure control, adjustment of the mA and/or kV according t o size, and the use of iterative reconstruction technique.
[2024-05-02] MEDS ORDERED: COLACE PO PRN (22:57)
[2024-05-02] MEDS ORDERED: HUMULIN R (10ML) SUBCUT PRN ×2 (23:02→23:20)
[2024-05-02] MEDS ORDERED: HUMULIN R (10ML) SUBCUT SCH (23:30)
[2024-05-03] MEDS: ZOFRAN ODT PO PRN (00:19)
--- NOTE | 2024-05-03 00:46 | DI ---
EXAM: SINGLE VIEW OF THE CHEST. History: Chest pain, short of breath Comparison: Chest radiograph 04/22/2024 FINDINGS: Heart size is normal. No consolidation. No pleural fluid and no pneumothorax. No acute osseous abnormalities. Coronary artery calcifications or stent. Atherosclerotic vascular calcificat ions of the aortic knob. Impression: No acute cardiopulmonary process
[2024-05-03 00:56] VITALS: BMI 30.4
--- NOTE | 2024-05-03 08:50 | PCM ---
Date of Service Date Seen by Provider: 05/03/24 Time Seen by Provider: 07:50 Admit Day/Time Admission Date: 05/02/24 Admission Time: 23:00 Reason for Admission Chief Complaint: ACUTE DYSPREA, HTN,TACHYCARDIA Hospital Provider Hospital Provider: NICOLE MATHIS, [facility] [place] Primary Care Physician: TYRA MYERS APRN,[facility] History of Present Illness History of Present Illness: 69 yo female with pmh of CKD, NC x 2 stents, HTN, and DM2 presented to the ER with complaints of shortness of breath and nausea. Patient tested positive for covid on 04/22 and was hospitalized. Reports she became short of breath worse than she had been yesterday evening and nauseated. Upon arrival to the ER, her heart rate was in the 140s in sinus tachycardia. Denies any chest pain or palpitations. Denies any previous history of this. Does take metoprolol but reports this is for blood pressure and not heart rate. Last echo was in 2018 with EF of 60%. Denies any other symptoms. Nausea and shortness of breath are improved but sob is still mildly present. HR running 120s at this time. Due to CKD, CTA unable to be completed in the ER. Admitted to med/surg observation for VQ scan and further work-up. Case Discussed With Case Discussed With: Patient's case was discussed with the ER Physicians, Dr. Betancourt. [facility] Medical History Neuropathy G62.9 - Polyneuropathy, unspecified (ICD-10) Hypothyroid E03.9 - Hypothyroidism, unspecified (ICD-10) Anxiety F41.9 - Anxiety disorder, unspecified (ICD-10) CKD (chronic kidney disease) N18.9 - Chronic kidney disease, unspecified (ICD-10) History of renal stone 06/02/19 Right UVJ Z87.442 - Personal history of urinary calculi (ICD-10) Non-Hodgkin lymphoma C85.90 - Non-Hodgkin lymphoma, unspecified, unspecified site (ICD-10) Chest pain R07.9 - Chest pain, unspecified (ICD-10) Myocardial infarction (~2008) Dr. Erwin. Two stents placed I21.9 - Acute myocardial infarction, unspecified (ICD-10) Depression F32.9 - Major depressive disorder, single episode, unspecified (ICD-10) Gout M10.9 - Gout, unspecified (ICD-10) Urinary incontinence R32 - Unspecified urinary incontinence (ICD-10) Chronic arthritis M19.90 - Unspecified osteoarthritis, unspecified site (ICD-10) Surgical History History of renal stent History of removal of calculus of renal pelvis through percutaneous nephrostomy 06/02/[address] Colmenares [facility] Z98.890 - Other specified postprocedural states (ICD-10) Z87.442 - Personal history of urinary calculi (ICD-10) History of cardiac catheterization 01/03/2018; 01/18/18; 03/29/18 Z98.890 - Other specified postprocedural states (ICD-10) History of coronary angioplasty with insertion of stent 01/18/18 L&RHC; X2 stents; 01/03/18 Angioplasty-see sx hx; Dr. Erwin; On ASA daily. Z95.5 - Presence of coronary angioplasty implant and graft (ICD-10) History of neck surgery (08/16/17) Dr. Yu 2002 Z98.890 - Other specified postprocedural states (ICD-10) Status post hysterectomy Total Z90.710 - Acquired absence of both cervix and uterus (ICD-10) Status post cholecystectomy Z90.49 - Acquired absence of other specified parts of digestive tract (ICD- 10) History of section Z98.891 - History of uterine scar from previous surgery (ICD-10) Cataract Bilateral w/ lens implants H26.9 - Unspecified cataract (ICD-10) Family History Mother Gout Cardiac disease Hypertension Mini stroke FATHER Diabetes Cardiac disease Hypertension Social History Smoking and tobacco status: Former smoker Tobacco: How many years used: 25 How long ago did patient quit smoking: one and one half years Alcohol intake: never Substance use type: does not use Household members: spouse Allergies Allergies Allergy/AdvReac Type Severity Reaction Status Date / Time metformin AdvReac Intermediate elevated Verified 05/02/24 20:15 kidney function; diarrhea nifedipine (From Procardia) AdvReac Intermediate rash, Verified 05/02/24 20:15 itching Current Medications Home Medications aspirin 81 mg tablet,delayed release 81 mg PO DAILYWM 07/22/17 [History Confirmed 05/03/24 Last Taken 05/02/24 08:00] diabetic supplies, miscellan. #1 ea 11/25/20 [Rx Confirmed 05/03/24 Last Taken Unknown] fluocinolone 0.01 % scalp oil and shower cap See Rx Instructions topical .COMPLEX #118.28 mL 11/30/23 [Rx Confirmed 05/03/24 Last Taken 05/01/24] empagliflozin 25 mg tablet (Jardiance) 25 mg PO QAM #90 tabs 02/06/24 [Rx Confirmed 05/03/24 Last Taken 05/02/24 08:00] omeprazole 20 mg capsule,delayed release 20 mg PO DAILY #90 caps 02/08/24 [Rx Confirmed 05/03/24 Last Taken 05/02/24 08:00] clobetasol 0.05 % topical ointment 1 applic topical 2XD 02/13/24 [History Confirmed 05/03/24 Last Taken 05/02/24 08:00] levothyroxine 100 mcg tablet 112 mcg PO QDAY 02/13/24 [History Confirmed 05/03/24 Last Taken 05/02/24 08:00] losartan 50 mg tablet 50 mg PO QDAY #90 tabs 02/20/24 [Rx Confirmed 05/03/24 Last Taken Unknown] metoprolol tartrate 50 mg tablet See Rx Instructions .Route .COMPLEX #60 tabs 02/20/24 [Rx Confirmed 05/03/24 Last Taken 05/02/24 08:00] potassium chloride 10 mEq capsule,extended release See Rx Instructions .Route .COMPLEX #60 caps 02/20/24 [Rx Confirmed 05/03/24 Last Taken 05/02/24 08:00] rosuvastatin 40 mg tablet 40 mg PO DAILY #90 ea 02/25/24 [Rx Confirmed 05/03/24 Last Taken Unknown] insulin glargine 100 unit/mL (3 mL) subcutaneous pen (Basaglar KwikPen U-100 Insulin) 80 unit (0.8 mL) subcut QPM 1 month #24 mL 04/02/24 [Rx Confirmed 05/03/24 Last Taken 05/01/24 19:00] duloxetine 60 mg capsule,delayed release 60 mg PO DAILY #90 ea 04/09/24 [Rx Confirmed 05/03/24 Last Taken 05/02/24 08:00] gabapentin 300 mg capsule 300 mg PO 3XD #90 caps 04/10/24 [Rx Confirmed 05/03/24 Last Taken 05/02/24 08:00] dulaglutide 3 mg/0.5 mL subcutaneous pen [facility] ([facility] See Rx Instructions .Route .COMPLEX 05/03/24 [History Confirmed 05/03/24 Last Taken 05/01/24] losartan 25 mg tablet (Cozaar) 25 mg PO DAILY 05/03/24 [History Confirmed 05/03/24 Last Taken 05/02/24 08:00] rosuvastatin 20 mg tablet (Crestor) 20 mg PO DAILY 05/03/24 [History Confirmed 05/03/24 Last Taken 05/02/24 08:00] Home Acetaminophen (Acetaminophen 500 Mg Tablet) 500 mg PO Q6HR PRN PRN Reason: FEVER/PAIN Aspirin (Aspirin 81 Mg Tablet.) 81 mg PO DAILYWM2 SUSANA Docusate Sodium (Docusate Sodium 100 Mg Capsule) 100 mg PO DAILY PRN PRN Reason: Constipation Duloxetine HCl (Duloxetine Hcl 30 Mg Capsule.) 60 mg PO DAILY SUSANA Gabapentin (Gabapentin 300 Mg Capsule) 300 mg PO 3XD [facility] Insulin Glargine (Insulin Glargine,Hum.Rec.Anlog 100 Units/Ml) 80 unit SUBCUT QPM [facility] Insulin Human Regular (Insulin Regular, Human 100 Unit/Ml (10ml) Vial) 0 unit SUBCUT PRN PRN; Protocol PRN Reason: Hyperglycemia Levothyroxine Sodium (Levothyroxine Sodium 112 Mcg Tablet) 112 mcg PO QDAC2 SUSANA Losartan Potassium (Losartan Potassium 25 Mg Tablet) 25 mg PO DAILY SUSANA Metoprolol Tartrate (Metoprolol Tartrate 50 Mg Tablet) 75 mg PO BID SUSANA Omeprazole (Omeprazole 20 Mg Capsule.) 20 mg PO QDAC2 SUSANA Ondansetron HCl (Ondansetron Hcl 4 Mg Tab.Rapdis) 4 mg PO Q4HR PRN PRN Reason: Nausea / Vomiting Last Admin: 05/03/24 00:19 Dose: 4 mg Rosuvastatin Calcium (Rosuvastatin Calcium 10 Mg Tablet) 20 mg PO DAILY SUSANA Discontinued Medications Enoxaparin Sodium (Enoxaparin Sodium 100 Mg/Ml Syr) 100 mg SUBCUT ONCE STA Stop: 05/02/24 21:42 Last Admin: 05/02/24 22:49 Dose: 100 mg Furosemide (Furosemide Inj 20 Mg/2 Ml Vial) 20 mg IVP ONCE ONE Stop: 05/02/24 21:43 Last Admin: 05/02/24 22:47 Dose: 20 mg Insulin Human Regular (Insulin Regular, Human 100 Unit/Ml (10ml) Vial) 0 unit SUBCUT PRN PRN; Protocol PRN Reason: Hyperglycemia Levothyroxine Sodium (Levothyroxine Sodium 100 Mcg Tablet) 112 mcg PO QDAC2 SUSANA Metoprolol Tartrate (Metoprolol Tartrate 5 Mg/5 Ml Vial) 5 mg IVP ONCE STA Stop: 05/02/24 22:31 Last Admin: 05/02/24 22:49 Dose: 5 mg Opioid Naive vs. Tolerant Does Patient Take Opioids?: No Is Patient Opioid Naive?: Yes What is Opioid Naive?: *Opioid Naive implies the patient is not already taking opioids or not chronically receiving opioids on a daily basis. *PRN dosing is not "usually" associated with tolerance. *Patients are at higher risk of over-sedation and aspiration. Is Patient Opioid Tolerant?: No What is Opioid Tolerant?: *Opioid Tolerance implies less than the expected response to an opioid. *Acquired tolerance is defined by the patient taking 60mg of oral morphine daily (or equianalgesic dose of another opioid) for 1 week or more. *Often associated with chronic pain. *May take more than usual dose to achieve desired pain control. Review of Systems Constitutional: Reports No symptoms Head: Reports Normocephalic Eyes: Reports No symptoms Ears: Reports No symptoms Nose: Reports No symptoms Mouth: Reports No symptoms Throat: Reports No symptoms Cardiovascular: Reports No symptoms Respiratory: Reports Shortness of air Gastrointestinal: Reports Nausea Genitourinary: Reports No Symptoms Musculoskeletal: Reports No symptoms Endocrine: Reports No symptoms Hematology: Reports No symptoms Immunology: Reports No symptoms Neurological: Reports No symptoms Psychiatric: Reports No symptoms Physical examination Most Recent Vital Signs: Most Recent Vital Signs Temperature 98.0 F 05/03/24 05:26 Temperature Source Oral 05/03/24 05:26 Temperature Source Infrared 05/02/24 20:08 Pulse Rate 115 H 05/03/24 05:26 Respiratory Rate 11 L 05/03/24 05:26 Blood Pressure 124/65 05/03/24 05:26 Blood Pressure Mean 84 05/03/24 05:26 Blood Pressure Left Arm 132/72 05/03/24 00:37 Blood Pressure Location Left Arm 05/03/24 05:26 Blood Pressure Position Supine 05/03/24 05:26 O2 Sat by Pulse Oximetry 95 05/03/24 05:26 Oxygen Delivery Method Room Air 05/03/24 07:30 Height 5 ft 1 in 05/03/24 00:37 Weight 73.2 kg 05/03/24 00:37 Telemetry Type Bedside Monitor 05/03/24 07:00 Telemetry Monitoring Continues 05/03/24 07:00 Telemetry Heart Rate 119 H 05/03/24 07:00 Telemetry SPO2 99 05/03/24 01:00 EKG NV Interval 0.12 05/03/24 07:00 EKG QRS Interval 0.06 05/03/24 07:[address] 05/03/24 07:00 Appearance: Positive No Apparent Distress and Alert and Oriented x3 Skin: Positive Warm HEENT: Positive Normocephalic and PERRLA Neck: Positive Supple and Midline Trachea Chest/Lungs: Positive Symmetrical With Equal Breath Sounds, Clear to Auscultation Bilaterally and Good Air Movement all 4 Lung Helm Heart: Positive Pulses Normal, Murmur and Tachycardia GI/: Positive Soft, Nontender, Bowel Sounds Normal, No Distention and No Organomegaly Musculoskeletal: Positive Not Examined Extremities: Positive Intact Peripheral Pulses, Stable Joints Without Laxity and Good ROM in All Joints Neurological: Positive Sensation Intact, Motor intact, Alert and Oriented Labs This Visit Labs This Visit: Labs This Visit 05/02/24 05/02/24 20:42 20:50 WBC 14.67 H RBC 5.16 Hgb 14.9 Hct 46.8 MCV 90.7 MCH 28.9 MCHC 31.8 RDW Coeff of Frandy 13.8 Plt Count 398 Immature Gran % (Auto) 1.4 Neut % (Auto) 72.5 Lymph % (Auto) 18.2 [place] % (Auto) 6.3 Eos % (Auto) 1.4 Baso % (Auto) 0.2 Neut # (Auto) 10.6 H Lymph # (Auto) 2.7 [place] # (Auto) 0.9 Eos # (Auto) 0.2 Baso # (Auto) 0.0 Immature Gran # (Auto) 0.2 PT 11.1 H INR 1.07 APTT 25.7 Sodium 139.0 Potassium 4.40 Chloride 101.0 Carbon Dioxide 26.0 Anion Gap 16.40 BUN 34.0 H Creatinine 1.80 H Estimated GFR (MDRD) 28.00 BUN/Creatinine Ratio 18.88 Glucose 181.0 H Calcium 9.30 Total Bilirubin 2.10 H AST 51.0 H ALT 75.0 H Alkaline Phosphatase 172.0 H Troponin I < 0.012 NT-Pro-B Natriuret Pep 848 H Total Protein 7.70 Albumin 4.20 Globulin 3.50 Albumin/Globulin Ratio 1.20 Influ A Molecular Assay Negative by naat Influ B Molecular Assay Negative by naat SARS CoV-2 RNA Rapid VANDANA Positive H Imaging Imaging: EXAM: SINGLE VIEW OF THE CHEST. History: Chest pain, short of breath Comparison: Chest radiograph 04/22/2024 FINDINGS: Heart size is normal. No consolidation. No pleural fluid and no pneumothorax. No acute osseous abnormalities. Coronary artery calcifications or stent. Atherosclerotic vascular calcifications of the aortic knob. Impression: No acute cardiopulmonary process Review Statement Review Statement: I have independently reviewed and interpreted the labs/EKGs/imaging that were ordered by the ER provider. I have reviewed all outside records that are available currently in our EMR including imaging/notes/labs from previous visits. Plan Plan: 1. Tachycardia - VQ scan ordered to r/o PE, increase metoprolol to 75 mg bid from 50 mg bid, will order echo after report of VQ scan 2. Leukocytosis - likely due to recent steroid use from Covid-19, UA and chest x-ray negative, no fever, monitor 3. CKD - at baseline creatinine, monitor 4. HTN - chronic, continue home medications 5. DM2 - chronic, ADA diet, resume home insulin regimen, accuchecks qid with ssi DVT Prophylaxis: Lovenox x 1 given in ER, will dose if needed following VQ scan Time Spent: Greater than 80 minutes spent with patient, 50% of the time spent with this patient was devoted to counseling and coordination of care. [facility] Plannin minutes spent discussing advance care planning. Disposition: Admit to: Med/surg Observation DNR Discussed Plan of Care with Dr. Rasheeda Wilson. Medications Medication Orders: Medications Ordered Category Date Time Status Acetaminophen [Tylenol] Meds 05/02/24 22:57 Active 500 mg PO Q6HR PRN Aspirin [Aspirin EC] Meds 05/03/24 09:00 Active 81 mg PO DAILYWM2 Docusate Sodium [Colace] Meds 05/02/24 22:57 Active 100 mg PO DAILY PRN Duloxetine HCl [Cymbalta] Meds 05/03/24 09:00 Active 60 mg PO DAILY Gabapentin [Neurontin] Meds 05/03/24 09:00 Ordered 300 mg PO 3XD Insulin Glargine,Hum.rec.anlog [Lantus] Meds 05/03/24 17:00 Active 80 unit SUBCUT QPM Insulin Regular, Human [Humulin R (10Ml)] Meds 05/03/24 08:31 Active See Protocol SUBCUT PRN PRN Levothyroxine Sodium [Synthroid] Meds 05/03/24 09:00 Ordered 112 mcg PO QDAY Losartan Potassium [Cozaar] Meds 05/03/24 09:00 Active 25 mg PO DAILY Metoprolol Tartrate [Lopressor] Meds 05/03/24 09:00 Ordered 75 mg PO BID Omeprazole [Prilosec] Meds 05/03/24 09:00 Ordered 20 mg PO DAILY Ondansetron [Zofran Odt] Meds 05/02/24 22:57 Active 4 mg PO Q4HR PRN Rosuvastatin Calcium [Crestor] Meds 05/03/24 09:00 Active 20 mg PO DAILY
[2024-05-03] MEDS ORDERED: SYNTHROID PO SCH (09:00)
[2024-05-03] MEDS: SYNTHROID PO SCH (09:42)
[2024-05-03] MEDS: COZAAR PO SCH (09:43)
[2024-05-03] MEDS: LOPRESSOR PO SCH (09:44)
[2024-05-03] MEDS: CYMBALTA PO SCH (09:44)
[2024-05-03] MEDS: CRESTOR PO SCH (09:45)
[2024-05-03] MEDS: NEURONTIN PO SCH (09:45)
[2024-05-03] MEDS: ASPIRIN EC PO SCH (09:45)
[2024-05-03] MEDS: PRILOSEC PO SCH (09:45)
[2024-05-03] MEDS: TYLENOL PO PRN (10:12)
[2024-05-03] MEDS: DEBROX EACH EAR ONE (11:14)
[2024-05-03] MEDS: HUMULIN R (10ML) SUBCUT PRN (11:14)
--- NOTE | 2024-05-03 11:28 | NM ---
EXAM: VENTILATION PERFUSION LUNG SCAN HISTORY: Shortness of breath. Tachycardia. COVID-19 11 days ago. COMPARISON: None of this type. Chest x-ray 05/02/2024. PROCEDURE: Ventilation: The patient was allowed to inhale from a reservoir of 31.1 mCi of 99 technetium DTPA ae rosol. Subsequently anterior, posterior, lateral and anterior and posterior oblique images were obta ined. Perfusion: The patient was injected with 5.2 mCi of 99 technetium MAA intravenously after which ante rior, posterior, lateral and anterior and posterior oblique images were obtained. FINDINGS: The ventilation images demonstrate generally uniform distribution of activity within the kenan ng hemphill. The perfusion images demonstrate a matching pattern of activity with no specific mismatch ed segmental or subsegmental perfusion defects typically seen with pulmonary embolus. A chest x-ray report describes no acute cardiopulmonary process. IMPRESSION: No evidence of pulmonary embolus. Results faxed to the department for transmission to the patient's nurse/physician at 11:22 a.m.
--- NOTE | 2024-05-03 15:52 | ECHO2D ---
Date of Exam: 05/03/2024 Ordering Physician:Pat TANG NP (HOSPITALIST), DR. MYERS (PRIMARY CARE) Room #: SCU 1 Reason for Echo: HYPERTENSION, DIABETES MELLITUS 2, CORONARY ARTERY DISEASE, CHRONIC KIDNEY DISEASE, CHEST PAIN, OBSTRUCTIVE SLEEP APNEA, HYPERLIPIDEMIA, HEART MURMUR, HISTORY OF STENT M-Mode Normal Adult Results LV Dimensions Normal Adult Results AoV Opening excursions >1.6 1.4 LVEDD-base- 3.5-5.8 5.7 Ao root dimensions 2.0-3.7 3.2 LVESD-base- 3.1-4.6 L. Atrium dimensions 1.9-3.8 4.0 Post. Wall thickness 0.8-1.1 1.2 IV septum (thickness) 0.7-1.2 1.2 Post. Wall excursion 0.72-1.3 0.9 Septal motion 0.8 Systolic motion R. Ventricular cavity 1.5-2.0 NORMAL LVEF 60% 45% Paradoxical septal wall motion NORMAL 2-D : MILDLY HYPOKINETIC LEFT VENTRICLE. BORDERLINE ENLARGED LEFT VENTRICLE CAVITY AND LEFT ATRIAL CAVITY. CALCIFIC AORTIC VALVE. MILD AORTIC STENOSIS. OTHER VALVES NORMAL. M-MODE: MV: NORMAL AV: CALCIFIC MILD AORTIC STENOSIS - SEPARATION OF LEAFLETS NOTED. TV: NORMAL PV: NORMAL CHAMBER SIZE: ENLARGED LEFT ATRIAL AND LEFT VENTRICLE CAVITIES (BORDERLINE). WALL MOTION: HYPOKINETIC LEFT VENTRICLE MILD, EJECTION FRACTION 45%. PERICARDIUM: NORMAL INTERPRETATION: 1. LEFT VENTRICULAR HYPERTROPHY WITH ENLARGED LEFT ATRIAL CAVITY. 2. LEFT VENTRICLE CAVITY BORDERLINE. 3. MILDLY HYPOKINETIC LEFT VENTRICLE (EJECTION FRACTION 45%). 4. CALCIFIC AORTIC STENOSIS, MILD. 5. MITRAL VALVE, TRICUSPID VALVE, PULMONARY VALVES NORMAL. MTDD
[2024-05-03] MEDS: LANTUS SUBCUT SCH (17:24)
[2024-05-04 05:25] VITALS: TEMP 97.6
[2024-05-04 05:57] LABS: BASOPHILS % (AUTO) 0.2 % (0.0-3.0); EOSINOPHILS # (AUTO) 0.2 K/ul (0.0-0.7); EOSINOPHILS % (AUTO) 1.6 % (0.0-7.0); HEMATOCRIT 39.8 % (37.0-47.0); HEMOGLOBIN 12.8 g/dl (12.0-16.0); IMMATURE GRANULOCYTE # (AUTO) 0.1 (0.0-1.0); IMMATURE GRANULOCYTE % (AUTO) 1.1 % (0.0-5.0); LYMPHOCYTES # (AUTO) 3.2 K/uL (0.60-3.4); LYMPHOCYTES % (AUTO) 24.9 (10.0-50.0); MEAN CORPUSCULAR HEMOGLOBIN 29.6 pg (27.0-31.0); MEAN CORPUSCULAR HGB CONC 32.2 (31.8-35.4); MEAN CORPUSCULAR VOLUME 91.9 fl (81.0-99.0); MONOCYTES % (AUTO) 7.7 (0-10); NEUTROPHILS # (AUTO) 8.3 K/ul (2.0-6.9); NEUTROPHILS % (AUTO) 64.5 % (42.2-75.2); PLATELET COUNT 338 10^3/uL (140-440); RDW COEFFICIENT OF VARIATION 13.9 % (11.6-14.8); RED BLOOD COUNT 4.33 10^6/ul (4.20-5.40); WHITE BLOOD COUNT 12.88 K/ul (4.6-10.2)
[2024-05-04 06:10] LABS: ALANINE AMINOTRANSFERASE 57.5 U/L (0-35); ALBUMIN 3.92 g/dL (3.5-5.0); ALKALINE PHOSPHATASE 124.1 U/L (53-141); ASPARTATE AMINO TRANSFERASE 38.2 U/L (14-36); BILIRUBIN,TOTAL 1.33 mg/dL (0.2-1.3); BLOOD UREA NITROGEN 52.6 mg/dL (7-17); CALCIUM 9.05 mg/dL (8.4-10.2); CARBON DIOXIDE 29.2 mmol/L (22-30.0); CHLORIDE 97.4 mmol/L (98-107); CREATININE 2.46 mg/dL (0.60-1.30); POTASSIUM 3.83 mmol/L (3.5-5.1); SODIUM 136.8 mmol/L (134.5-145); TOTAL PROTEIN 7.37 g/dL (6.3-8.2)
[2024-05-04 09:39] VITALS: PULSE 61; RESP 18
[2024-05-04] MEDS: LOPRESSOR PO SCH (11:51)
[2024-05-04] MEDS: SODIUM CHLORIDE 500 ML IV ONE (11:51)
[2024-05-04 12:52] VITALS: BP 142/76
--- NOTE | 2024-05-04 13:14 | DCSUM ---
Admission Date Admission Date: 05/02/24 Discharge Date Discharge Date: 05/04/24 Admission Diagnosis Admission Diagnosis: 1. Tachycardia 2. Leukocytosis 3. CKD 4. HTN 5. DM2 Discharge Diagnosis Discharge Diagnosis: 1. Tachycardia - Resolved 2. Leukocytosis - Improving 3. CKD - Stable 4. HTN - Chronic, stable 5. DM2 - Chronic, stable Hospital Provider Hospital [facility] Primary Care Physician Primary Care Physician: TYRA MYERS APRN,[facility] Summary of History and Physical Summary of History and Physical: 69 yo female with pmh of CKD, SC x 2 stents, HTN, and DM2 presented to the ER with complaints of shortness of breath and nausea. Patient tested positive for covid on 04/22 and was hospitalized. Reports she became short of breath worse than she had been yesterday evening and nauseated. Upon arrival to the ER, her heart rate was in the 140s in sinus tachycardia. Denies any chest pain or palpitations. Denies any previous history of this. Does take metoprolol but reports this is for blood pressure and not heart rate. Last echo was in 2018 with EF of 60%. Denies any other symptoms. Nausea and shortness of breath are improved but sob is still mildly present. HR running 120s at this time. Due to CKD, CTA unable to be completed in the ER. Admitted to med/surg observation for VQ scan and further work-up. Hospital Course Subjective: VQ scan completed and negative for PE or acute process. Echo completed due to history of CAD and stents. EF 60% in 2018 and down to 45% now. HR was initially 140s in ER. Remained 120s following. Attempted trial increase of her metoprolol tartrate from 50 mg bid to 75 mg bid. BP dropped tos 80s/40s. Patient reported dizziness upon standing. Systolic improved but diastolic remained in 40s. 500 mL bolus of NS given. BP improved to 140s/70s. Sending home with 7 day holter monitor. No adjustment to home medications at this time. Follow-up with PCP next week. Appearance: Pleasant, No Apparent Distress and Alert HEENT: MMM, Supple and No JVD CVS: No Murmur, No Rubs and No Gallop Abdomen: Soft, Non-Tender and No Distention Respiratory: No Dyspnea Extremities: No Edema Vital Signs: Most Recent Vital Signs Temperature 97.6 F 05/04/24 05:21 Temperature Source Temporal Artery Scan 05/04/24 05:21 Temperature Source Infrared 05/02/24 20:08 Pulse Rate 61 05/04/24 09:38 Respiratory Rate 18 05/04/24 09:38 Blood Pressure 142/76 H 05/04/24 12:52 Blood Pressure Mean 98 05/04/24 12:52 Blood Pressure Left Arm 132/72 05/03/24 00:37 Blood Pressure Location Left Arm 05/04/24 12:52 Blood Pressure Position Supine 05/04/24 12:52 O2 Sat by Pulse Oximetry 96 05/04/24 12:52 Oxygen Delivery Method Room Air 05/04/24 13:00 Height 5 ft 1 in 05/03/24 00:37 Weight 73.2 kg 05/03/24 00:37 Telemetry Type Remote Telemetry 05/04/24 07:00 Telemetry Monitoring Continues 05/04/24 07:00 Telemetry Heart Rate 61 05/04/24 07:00 Telemetry SPO2 99 05/03/24 01:00 EKG CO Interval 0.16 05/04/24 07:00 EKG QRS Interval 0.06 05/04/24 07:00 Telemetry Strip Reading sr 05/04/24 07:00 Imaging: EXAM: SINGLE VIEW OF THE CHEST. FINDINGS: Heart size is normal. No consolidation. No pleural fluid and no pneumothorax. No acute osseous abnormalities. Coronary artery calcifications or stent. Atherosclerotic vascular calcifications of the aortic knob. Impression: No acute cardiopulmonary process EXAM: VENTILATION PERFUSION LUNG SCAN FINDINGS: The ventilation images demonstrate generally uniform distribution of activity within the lung hemphill. The perfusion images demonstrate a matching pattern of activity with no specific mismatched segmental or subsegmental perfusion defects typically seen with pulmonary embolus. A chest x-ray report describes no acute cardiopulmonary process. IMPRESSION: No evidence of pulmonary embolus. Lab Results Last 24 Hours: 05/04/24 05:50 WBC 12.88 H RBC 4.33 Hgb 12.8 Hct 39.8 D MCV 91.9 MCH 29.6 MCHC 32.2 RDW Coeff of Frandy 13.9 Plt Count 338 Immature Gran % (Auto) 1.1 Neut % (Auto) 64.5 Lymph % (Auto) 24.9 [place] % (Auto) 7.7 Eos % (Auto) 1.6 Baso % (Auto) 0.2 Neut # (Auto) 8.3 H Lymph # (Auto) 3.2 [place] # (Auto) 1.0 Eos # (Auto) 0.2 Baso # (Auto) 0.0 Immature Gran # (Auto) 0.1 Sodium 136.8 Potassium 3.83 Chloride 97.4 L Carbon Dioxide 29.2 Anion Gap 14.03 BUN 52.6 H Creatinine 2.46 H D Estimated GFR (MDRD) 19.00 BUN/Creatinine Ratio 21.38 Glucose 90.0 Calcium 9.05 Total Bilirubin 1.33 H AST 38.2 H ALT 57.5 H Alkaline Phosphatase 124.1 D Total Protein 7.37 Albumin 3.92 Globulin 3.45 Albumin/Globulin Ratio 1.13 Discharge Instructions Discharge Planning: Discharge Planning > 40 minutes If patient is discharged with left ventricular systolic dysfunction: no Discharged with a beta brendan? [] If no, why not? [] Discharged with an geovany/arb? [] If no, why not? [] Diagnosis: Tachycardia Diet: Diabetic Activity: as tolerated Follow-up with PCP in 1 week Medications: No changes Holter monitor x 7 days Discharge Medications: Medications at Discharge (Home Meds & RX) aspirin 81 mg tablet,delayed release 81 mg PO DAILYWM 07/22/17 diabetic supplies, [employer]. #1 ea 11/25/20 fluocinolone 0.01 % scalp oil and shower cap See Rx Instructions topical .COMPLEX #118.28 mL 11/30/23 empagliflozin 25 mg tablet (Jardiance) 25 mg PO QAM #90 tabs 02/06/24 omeprazole 20 mg capsule,delayed release 20 mg PO DAILY #90 caps 02/08/24 clobetasol 0.05 % topical ointment 1 applic topical 2XD 02/13/24 levothyroxine 100 mcg tablet 112 mcg PO QDAY 02/13/24 losartan 50 mg tablet 50 mg PO QDAY #90 tabs 02/20/24 metoprolol tartrate 50 mg tablet See Rx Instructions .Route .COMPLEX #60 tabs 02/20/24 potassium chloride 10 mEq capsule,extended release See Rx Instructions .Route .COMPLEX #60 caps 02/20/24 rosuvastatin 40 mg tablet 40 mg PO DAILY #90 ea 02/25/24 insulin glargine 100 unit/mL (3 mL) subcutaneous pen (Basaglar KwikPen U-100 Insulin) 80 unit (0.8 mL) subcut QPM 1 month #24 mL 04/02/24 duloxetine 60 mg capsule,delayed release 60 mg PO DAILY #90 ea 04/09/24 gabapentin 300 mg capsule 300 mg PO 3XD #90 caps 04/10/24 dulaglutide 3 mg/0.5 mL subcutaneous pen injector (Trulicity) See Rx Instru ctions .Route .COMPLEX 05/03/24 losartan 25 mg tablet (Cozaar) 25 mg PO DAILY 05/03/24 rosuvastatin 20 mg tablet (Crestor) 20 mg PO DAILY 05/03/24 Discharge Plan Discharge Discharge Orders: Discharge Patient (ONCE); Ordered 05/04/24 Ordered By: CAILIN TANG Activity Restrictions/Additional Instructions: Diagnosis: Tachycardia Diet: Diabetic Activity: as tolerated Follow-up with PCP in 1 week Medications: No changes Holter monitor x 7 days Instructions: Tachycardia (GEN) Patient Disposition: HOME SELF-CARE Prescriptions: Continued Jardiance 25 mg tablet 25 mg PO QAM Qty: 90 1RF omeprazole 20 mg capsule,delayed release(DR/EC) 20 mg PO DAILY Qty: 90 0RF rosuvastatin 40 mg tablet 40 mg PO DAILY Qty: 90 2RF insulin glargine [Basaglar KwikPen U-100 Insulin] 100 unit/mL (3 mL) insulin pen 80 unit subcut QPM 30 Days Qty: 24 2RF duloxetine 60 mg capsule,delayed release(DR/EC) 60 mg PO DAILY Qty: 90 0RF gabapentin 300 mg capsule 300 mg PO 3XD Qty: 90 2RF aspirin 81 MG tablet,delayed release (DR/EC) 81 mg PO DAILYWM clobetasol 0.05 % ointment 1 applic topical 2XD levothyroxine 100 mcg tablet 112 mcg PO QDAY rosuvastatin [Crestor] 20 mg tablet 20 mg PO DAILY losartan [Cozaar] 25 mg tablet 25 mg PO DAILY Trulicity 3 mg/0.5 mL pen injector See Rx Instructions .ROUTE .COMPLEX Rx Instructions: INJECT 2.5 MG SUBCUTANEOUSLY ONCE A WEEK on Wednesdays (DME) diabetic supplies, [employer]. Misc See Rx Instructions .ROUTE Qty: 1 0RF Rx Instructions: diabetic shoes with inserts losartan 50 mg tablet 50 mg PO QDAY Qty: 90 1RF potassium chloride 10 mEq capsule, extended release See Rx Instructions .ROUTE .COMPLEX Qty: 60 2RF Dose Instruction: TAKE 1 CAPSULE BY MOUTH TWICE DAILY FOR 30 DAYS Rx Instructions: TAKE 1 CAPSULE BY MOUTH TWICE DAILY FOR 30 DAYS metoprolol tartrate 50 mg tablet See Rx Instructions .ROUTE .COMPLEX Qty: 60 2RF Dose Instruction: Take 1 tablet by mouth twice daily for 30 days Rx Instructions: Take 1 tablet by mouth twice daily for 30 days fluocinolone and shower cap 0.01 % oil See Rx Instructions topical .COMPLEX Qty: 118.28 5RF Rx Instructions: Apply fluocinolone 0.01% in oil to a wet scalp under a shower cap for one to two hours topical; perform daily for 2 weeks Did you review [place] [employer] for ALL controlled substances?: No Discussed opioids are addictive and Narcan is available by prescription or from pharmacy.: No Condition: Stable Referrals: CARLY LOCK PA-C [PHYSICIAN MACHINES TECHNICIAN] - 05/13/24 10:45 am (your provider, Tyra, did not have any availability and so this was scheduled with Carly Lock at the [facility]. If you would like to change this, you can call and request different apt. )
== END 2024-05-04 15:00 | disposition home or self-care (01) ==
LOC: SCU 19:59 → ED 19:59 → SCU 05-03 00:28
PROVIDERS: ADMIT Hospitalist; ATTEND Nurse Practitioner Family
DX: R06.02 Shortness of breath; Z79.84 Long term (current) use of oral hypoglycemic drugs; Z79.899 Other long term (current) drug therapy; Z79.4 Long term (current) use of insulin; Z51.81 Encounter for therapeutic drug level monitoring; E11.9 Type 2 diabetes mellitus without complications; K76.0 Fatty (change of) liver, not elsewhere classified; D72.829 Elevated white blood cell count, unspecified; U07.1 COVID-19; I25.2 Old myocardial infarction; Z95.5 Presence of coronary angioplasty implant and graft; N18.9 Chronic kidney disease, unspecified; I10 Essential (primary) hypertension; R00.0 Tachycardia, unspecified; R16.0 Hepatomegaly, not elsewhere classified